=== PATIENT | male | born 1945 | race Caucasian/White ===

== ENCOUNTER 2016-06-10 08:16 | Outpatient (CLI) | END 2016-06-10 08:17 | LOC: AMBL 08:16 | PROVIDERS: ATTEND Emergency Medicine | DX: R53.1 Weakness (principal); S51.812A Laceration without foreign body of left forearm, initial encounter; R09.89 Other specified symptoms and signs involving the circulatory and respiratory systems; W19.XXXA Unspecified fall, initial encounter ==

== ENCOUNTER 2016-06-10 08:26 | Inpatient (IN) ==
[2016-06-10] MEDS ORDERED: SODIUM CHLORIDE 1,000 ML IV STA (08:43)
--- NOTE | 2016-06-10 09:00 | ED.PDOC ---
General ED Provider: Dr. GRIS SADLER JR Chief Complaint: Respiratory Complaint Stated Complaint: found on floor 0300 -weak-cough congestion thinks he has the flu-unsure if struck head --speech -difficult to understand- skin tear to left forearm-neb per ems sat at 84 on 3l--has red rash face-- health failing past month[End]99.2 104 24 94% 120/65[End] Time Seen by Physician: 08:40 Mode of Arrival: Ambulance Information Source: Patient, EMT Exam Limitations: Clinical condition Primary Care Provider: MRALENY WELLER Nursing and Triage Documentation Reviewed and Agree: No Review of Systems - Review Of Systems Constitutional: Reports: Malaise, Weakness Eyes: Reports: No symptoms Ears, Nose, Mouth, Throat: Reports: No symptoms Respiratory: Reports: Cough Cardiac: Reports: Lightheadedness, Syncope GI: Reports: Abdomen distended, Poor appetite : Reports: No symptoms Musculoskeletal: Reports: Other (left arm scraped) Skin: Reports: Lesions Neurological: Reports: Headache (frontal pain - I think I hit it) Endocrine: Reports: No symptoms Hematologic/Lymphatic: Reports: No symptoms All Other Systems: Other Past Medical History - Past Medical History Previously Healthy: No Endocrine: Reports: Hypothyroid, Dyslipidemia Cardiovascular: Reports: CAD, Hypertension Respiratory: Reports: COPD Hematological: Reports: Anemia Gastrointestinal: Reports: GERD Genitourinary: Reports: None Neuro/Psych: Reports: Anxiety, Depression Musculoskeletal: Reports: Arthritis, Back Pain, Joint Pain Cancer: Reports: Other Other Pertinent Past Medical History: sepd - Surgical History General Surgical History: Reports: Cholecystectomy, Unknown - Family History Family History: Reports: Unknown - Social History Smoking Status: Current every day smoker, Light tobacco smoker Hx Substance Use: No Alcohol Screening: None Physical Exam - Physical Exam Appearance: Ill-appearing, Thin Ill-appearing: Moderate Pain Distress: Mild Eyes: WILLIAM, EOMI, Conjunctiva inflammed ENT: Ears normal, Nose normal, Oropharynx normal (dry erythema) Neck: Supple Respiratory: Airway patent, Breath sounds diminished Cardiovascular: RRR, Pulses normal GI/: Soft, Tender (nonfocal discomfort protuberan ) Musculoskeletal: Normal strength, ROM intact, No edema, No calf tenderness Skin: Warm, Dry (morbilliform facial rash) Neurological: Sensation intact, Motor intact, Cranial nerves intact, Oriented Psychiatric: Affect appropriate, Mood appropriate, Depressed Interpretation - Radiology Interpretation Radiology Interpretation By: Radiologist Radiology Results: Positive (RLL pneumonia) Exam Interpreted: CXR - EKG Interpretation Time of EKG #1: 08:55 Rate: Normal Rhythm: Sinus [place]: Right (TECH STATES NO LEAD REVERSAL NO SIG [id number]) Re-Evaluation - Re-Evaluation Time of Re-Evaluation: 10:31 (90% 0N 35 % I AM FEELING PRETTY GOOD) Status: Improved (CHEERFUL STATES HEADACHE GONE NOTE FACIAL RASH RESOLVED EXCEPT LEFT EYE LID) Vital Signs Stable: Yes Critical Care Note - Critical Care Note Total Time (mins): 20 Course - Course Hematology/Chemistry: 06/10/16 09:05 06/10/16 09:05 Orders, Labs, Meds: Lab Review 06/10/16 06/10/16 06/10/16 08:44 09:05 09:35 WBC 9.32 RBC 3.70 L Hgb 11.2 L Hct 35.8 L MCV 96.8 H MCH 30.3 MCHC 31.3 L RDW Coeff of Evan 13.8 Plt Count 184 Immature Gran % (Auto) 1.1 Neut % (Auto) 90.0 Lymph % (Auto) 2.9 L Curry % (Auto) 5.8 Eos % (Auto) 0.0 Baso % (Auto) 0.2 Immature Gran # (Auto) 0.1 Neut # 8.4 H Lymph # 0.3 L Curry # 0.5 Eos # 0.0 Baso # 0.0 D-Dimer 1.64 Puncture Site R rad O2 Saturation 66.0 L ABG pH 7.33 L ABG pCO2 73.0 H ABG pO2 39.0 L* ABG HCO3 38 H ABG Total CO2 40 H ABG Base Excess 12 H Julio Cesar Test + O2 Delivery Device Oxygen Liter Flow FiO2 % 21.0 Sodium 139 Potassium 4.4 Chloride 90 L Carbon Dioxide 35 H Anion Gap 18.4 BUN 18 Creatinine 1.24 H Estimated GFR (MDRD) 57.00 BUN/Creatinine Ratio 14.51 Glucose 145 H Lactic Acid 9.7 Calcium 9.5 Total Bilirubin 0.44 AST 49 H ALT 42 Alkaline Phosphatase 71 Total Creatine Kinase 88 Troponin I 0.0850 B-Natriuretic Peptide 53 Total Protein 7.9 Albumin 3.5 Globulin 4.4 Albumin/Globulin Ratio 0.80 Procalcitonin 0.34 Influenza A (Rapid) Negative Influenza B (Rapid) Negative 06/10/16 11:25 WBC RBC Hgb Hct MCV MCH MCHC RDW Coeff of Evan Plt Count Immature Gran % (Auto) Neut % (Auto) Lymph % (Auto) Curry % (Auto) Eos % (Auto) Baso % (Auto) Immature Gran # (Auto) Neut # Lymph # Curry # Eos # Baso # D-Dimer Puncture Site R rad O2 Saturation 87.0 L ABG pH 7.338 L ABG pCO2 72.1 H ABG pO2 59.0 L* ABG HCO3 38.7 H ABG Total CO2 41 H ABG Base Excess 13 H Julio Cesar Test + O2 Delivery Device V mx Oxygen Liter Flow 6.00 FiO2 % 35.0 Sodium Potassium Chloride Carbon Dioxide Anion Gap BUN Creatinine Estimated GFR (MDRD) BUN/Creatinine Ratio Glucose Lactic Acid Calcium Total Bilirubin AST ALT Alkaline Phosphatase Total Creatine Kinase Troponin I B-Natriuretic Peptide Total Protein Albumin Globulin Albumin/Globulin Ratio Procalcitonin Influenza A (Rapid) Influenza B (Rapid) Orders Category Date Time Status ADMIT PATIENT [facility]PAT[facility] ([facility]) ADMISSION 06/10/16 12: 43 Active ABG DRAW REQUEST Stat CARDIO 06/10/16 08:45 Completed ABG DRAW REQUEST Stat CARDIO 06/10/16 10:30 Completed EKG-(ED ONLY) Stat CARDIO 06/10/16 08:43 Completed EKG-(IP & OP ONLY) DAILY CARDIO 06/11/16 06:00 Ordered EKG-(IP & OP ONLY) DAILY CARDIO 06/12/16 06:00 Ordered EKG-(IP & OP ONLY) DAILY CARDIO 06/13/16 06:00 Ordered NEBULIZER TREATMENT Stat CARDIO 06/10/16 09:30 Completed OXYGEN Routine CARDIO 06/10/16 12:45 Active ACTIVITY .Early Mobilization for VTE Prevention CARE 06/10/16 12:43 Active INTAKE & OUTPUT Q8HR CARE 06/10/16 12:43 Completed TELEMETRY MONITORING TELE CARE 06/10/16 12:44 Active VITAL SIGNS Q4HR CARE 06/10/16 12:43 Active CARDIAC DIET DIETARY 06/10/16 Dinner Ordered ED APPLY O2 .ONCE EMERGENCY 06/10/16 08:43 Active ED EPIC INTERFACE ANALYST APPLIED .ONCE EMERGENCY 06/10/16 08:43 Active ED IV/MEDIPORT/POWERPORT .ONCE EMERGENCY 06/10/16 08:43 Active ABG Stat LAB 06/10/16 08:44 Completed ABG Stat LAB 06/10/16 11:25 Completed B-TYPE NATRIURETIC PEPTIDE Stat LAB 06/10/16 09:05 Completed BLOOD CULTURE Stat LAB 06/10/16 09:05 Received CBC W/ AUTO DIFF DAILY@0600 LAB 06/11/16 06:00 Ordered CBC W/ AUTO DIFF DAILY@0600 LAB 06/12/16 06:00 Ordered CBC W/ AUTO DIFF DAILY@0600 LAB 06/13/16 06:00 Ordered CBC W/ AUTO DIFF DAILY@0600 LAB 06/14/16 06:00 Ordered CBC W/ AUTO DIFF DAILY@0600 LAB 06/15/16 06:00 Ordered CBC W/ AUTO DIFF DAILY@0600 LAB 06/16/16 06:00 Ordered CBC W/ AUTO DIFF DAILY@0600 LAB 06/17/16 06:00 Ordered CBC W/ AUTO DIFF DAILY@0600 LAB 06/18/16 06:00 Ordered CBC W/ AUTO DIFF DAILY@0600 LAB 06/19/16 06:00 Ordered CBC W/ AUTO DIFF DAILY@0600 LAB 06/20/16 06:00 Ordered CBC W/ AUTO DIFF DAILY@0600 LAB 06/21/16 06:00 Ordered CBC W/ AUTO DIFF DAILY@0600 LAB 06/22/16 06:00 Ordered CBC W/ AUTO DIFF DAILY@0600 LAB 06/23/16 06:00 Ordered CBC W/ AUTO DIFF DAILY@0600 LAB 06/24/16 06:00 Ordered CBC W/ AUTO DIFF DAILY@0600 LAB 06/25/16 06:00 Ordered CBC W/ AUTO DIFF DAILY@0600 LAB 06/26/16 06:00 Ordered CBC W/ AUTO DIFF DAILY@0600 LAB 06/27/16 06:00 Ordered CBC W/ AUTO DIFF DAILY@0600 LAB 06/28/16 06:00 Ordered CBC W/ AUTO DIFF DAILY@0600 LAB 06/29/16 06:00 Ordered CBC W/ AUTO DIFF DAILY@0600 LAB 06/30/16 06:00 Ordered CBC W/ AUTO DIFF Stat LAB 06/10/16 09:05 Completed COMPREHENSIVE METABOLIC PANEL DAILY@0600 LAB 06/11/16 06:00 Ordered COMPREHENSIVE METABOLIC PANEL DAILY@0600 LAB 06/12/16 06:00 Ordered COMPREHENSIVE METABOLIC PANEL DAILY@0600 LAB 06/13/16 06:00 Ordered COMPREHENSIVE METABOLIC PANEL DAILY@0600 LAB 06/14/16 06:00 Ordered COMPREHENSIVE METABOLIC PANEL DAILY@0600 LAB 06/15/16 06:00 Ordered COMPREHENSIVE METABOLIC PANEL DAILY@0600 LAB 06/16/16 06:00 Ordered COMPREHENSIVE METABOLIC PANEL DAILY@0600 LAB 06/17/16 06:00 Ordered COMPREHENSIVE METABOLIC PANEL DAILY@0600 LAB 06/18/16 06:00 Ordered COMPREHENSIVE METABOLIC PANEL DAILY@0600 LAB 06/19/16 06:00 Ordered COMPREHENSIVE METABOLIC PANEL DAILY@0600 LAB 06/20/16 06:00 Ordered COMPREHENSIVE METABOLIC PANEL DAILY@0600 LAB 06/21/16 06:00 Ordered COMPREHENSIVE METABOLIC PANEL DAILY@0600 LAB 06/22/16 06:00 Ordered COMPREHENSIVE METABOLIC PANEL DAILY@0600 LAB 06/23/16 06:00 Ordered COMPREHENSIVE METABOLIC PANEL DAILY@0600 LAB 06/24/16 06:00 Ordered COMPREHENSIVE METABOLIC PANEL DAILY@0600 LAB 06/25/16 06:00 Ordered COMPREHENSIVE METABOLIC PANEL DAILY@0600 LAB 06/26/16 06:00 Ordered COMPREHENSIVE METABOLIC PANEL DAILY@0600 LAB 06/27/16 06:00 Ordered COMPREHENSIVE METABOLIC PANEL DAILY@0600 LAB 06/28/16 06:00 Ordered COMPREHENSIVE METABOLIC PANEL DAILY@0600 LAB 06/29/16 06:00 Ordered COMPREHENSIVE METABOLIC PANEL DAILY@0600 LAB 06/30/16 06:00 Ordered COMPREHENSIVE METABOLIC PANEL Stat LAB 06/10/16 09:05 Completed CREATINE KINASE Q8H LAB 06/10/16 19:00 Ordered CREATINE KINASE Q8H LAB 06/11/16 03:00 Ordered CREATINE KINASE Stat LAB 06/10/16 09:05 Completed D-DIMER Stat LAB 06/10/16 09:05 Completed LACTIC ACID Stat LAB 06/10/16 09:05 Completed MOLECULAR GROUP A STREP Stat LAB 06/10/16 09:35 Results PROCALCITONIN Stat LAB 06/10/16 09:05 Completed RAPID FLU A/B Stat LAB 06/10/16 09:35 Completed STREP SCREEN Stat LAB 06/10/16 09:35 Results TROPONIN I Q8H LAB 06/10/16 19:00 Ordered TROPONIN I Q8H LAB 06/11/16 03:00 Ordered TROPONIN I Stat LAB 06/10/16 09:05 Completed 0.9 % Sodium Chloride [Saline Flush] MEDS 06/10/16 08:43 Active 1 syr IVF PRN PRN Acetaminophen [Tylenol] MEDS 06/10/16 12:43 Active 650 mg PO Q4H PRN Ceftriaxone Sodium [Rocephin] MEDS 06/10/16 10:01 Discontinued 1 gm .ROUTE .STK-MED ONE Ceftriaxone Sodium [Rocephin] 1 gm MEDS 06/11/16 09:00 Active 0.9 % Sodium Chloride [Sodium Chloride] 100 ml IV DAILY Ceftriaxone Sodium [Rocephin] 1 gm MEDS 06/10/16 09:31 Discontinued 0.9 % Sodium Chloride [Sodium Chloride] 100 ml IV ONCE Ceftriaxone Sodium [Rocephin] 1 gm MEDS 06/10/16 10:16 Discontinued 0.9 % Sodium Chloride [Sodium Chloride] 50 ml IV ONCE Ipratropium/Albuterol Neb [Duoneb] MEDS 06/10/16 09:30 Discontinued 1 vial NEB ONCE STA Sodium Chloride 0.9% [Sodium Chloride] 1,000 ml MEDS 06/10/16 08:43 Discontinued IV 100 mls/hr Sodium Chloride 0.9% [Sodium Chloride] 1,000 ml MEDS 06/10/16 13:00 Active IV 75 mls/hr RESUSCITATION STATUS Routine OTHERS 06/10/16 12:43 Ordered CHEST, 1V AP ONLY Stat RADS 06/10/16 08:[address] HEAD W/O CONTRAST Stat RADS 06/10/16 08:45 Completed Medications Generic Name Dose Route Start Last Admin Trade Name Freq PRN Reason Stop Dose Admin Acetaminophen 650 mg 06/10/16 12:43 Tylenol PO Q4H PRN Mild Pain Albuterol/Ipratropium 1 vial 06/10/16 18:00 06/10/16 17:50 Duoneb NEB 06/20/16 17:59 1 vial RTQ6H PRIYANKA Administration Aspirin 81 mg 06/10/16 13:30 06/10/16 14:42 Aspirin Ec PO 81 mg DAILYWM PRIYANKA Administration Budesonide/Formoterol Fumarate 2 puff 06/10/16 21:00 Symbicort 160-4.5 Mcg Inhaler IH BID PRIYANKA Ezetimibe 10 mg 06/11/16 09:00 Zetia PO DAILY PRIYNAKA Ergocalciferol 50,000 unit 06/10/16 14:30 06/10/16 14:41 Drisdol PO 50,000 unit We@0900 PRIYANKA Administration Gabapentin 300 mg 06/10/16 21:00 Neurontin PO BID PRIYANKA Hydrochlorothiazide 12.5 mg 06/10/16 14:00 06/10/16 14:42 Hydrochlorothiazide PO 12.5 mg DAILY PRIYANKA Administration Sodium Chloride 1,000 mls @ 75 mls/hr 06/10/16 13:00 06/10/16 19:08 Sodium Chloride IV 75 mls/hr .[id number] PRIYANKA Administration Ceftriaxone Sodium 1 gm/ 100 mls @ 100 mls/hr 06/11/16 09:00 Sodium Chloride IV DAILY PRIYANKA Lamotrigine 25 mg 06/10/16 21:00 Lamictal PO BID PRIYANKA Levothyroxine Sodium 75 mcg 06/10/16 13:30 06/10/16 14:41 Synthroid PO 75 mcg QDAC PRIYANKA Administration Lorazepam 0.5 mg 06/10/16 15:00 06/10/16 15:42 Ativan PO 0.5 mg TID PRIYANKA Administration Non-Formulary Medication 50 mg 06/10/16 15:00 06/10/16 14:41 Primidone [Primidone] PO 50 mg TID PRIYANKA Administration Olanzapine 2.5 mg 06/10/16 21:00 Zyprexa PO BID PRIYANKA Omeprazole 20 mg 06/10/16 13:30 06/10/16 14:41 Prilosec PO 20 mg QDAC PRIYANKA Administration Roflumilast 500 mcg 06/10/16 13:30 06/10/16 14:41 Daliresp PO 500 mcg DAILY PRIYANKA Administration Simvastatin 20 mg 06/10/16 21:00 Zocor PO BEDTIME PRIYANKA Sitagliptin Phosphate 50 mg 06/11/16 09:00 Januvia PO DAILY PRIYANKA Sodium Chloride 1 syr 06/10/16 08:43 06/10/16 09:28 Saline Flush IVF 1 syr PRN PRN Administration To flush IV Sucralfate 1 gm 06/10/16 13:30 06/10/16 17:51 Carafate PO 1 gm ACHS PRIYANKA Administration Tamsulosin HCl 0.4 mg 06/10/16 13:30 06/10/16 14:42 Flomax PO 0.4 mg DAILY PRIYANKA Administration Discontinued Medications Generic Name Dose Route Start Last Admin Trade Name Freq PRN Reason Stop Dose Admin Albuterol/Ipratropium 1 vial 06/10/16 09:30 06/10/16 09:54 Duoneb NEB 06/10/16 09:31 1 vial ONCE STA Administration Dexamethasone Sodium Phosphate 4 mg 06/10/16 14:55 06/10/16 15:01 Decadron 4 Mg/Ml Sdv IVP 06/10/16 14:56 4 mg ONCE STA Administration Sodium Chloride 1,000 mls @ 100 mls/hr 06/10/16 08:43 06/10/16 09:28 Sodium Chloride IV 06/10/16 18:42 100 mls/hr .Q10H STA Administration Ceftriaxone Sodium 1 gm/ 100 mls @ 100 mls/hr 06/10/16 09:31 06/10/16 10:19 Sodium Chloride IV 06/10/16 10:30 Not Given ONCE STA Ceftriaxone Sodium 1 gm/ 50 mls @ 100 mls/hr 06/10/16 10:16 06/10/16 10:18 Sodium Chloride IV 06/10/16 10:45 100 mls/hr ONCE STA Administration Vital Signs: Temp Pulse Resp BP Pulse Ox 06/10/16 08:27 99.2 F 104 H 24 120/65 94 L Departure - Departure Time of Disposition: 12:40 Disposition: ADMITTED INPATIENT Discharge Problem: Pneumonia Qualifiers: Pneumonia type: due to unspecified organism Laterality: right Lung location: lower lobe of lung Qualifier Code: (J18.1) Lobar pneumonia, unspecified organism Condition: Stable Pt referred to PMD for follow-up: Yes Allergies/Adverse Reactions: Allergies codeine Adverse Reaction (Verified 02/29/16 14:05) metoclopramide HCl [From Reglan] Adverse Reaction (Verified 02/29/16 14:05) steroids Adverse Reaction (Uncoded 05/19/15 14:16) Home Medications: Ambulatory Orders Ezetimibe [Zetia] 10 mg PO DAILY 11/18/13 Gabapentin 300 mg PO BID 11/18/13 Simvastatin [Zocor] 20 mg PO BEDTIME 11/18/13 Tamsulosin HCl 0.4 mg PO DAILY 11/18/13 Ipratropium/Albuterol Neb [Duoneb] 1 vial INH BID 01/13/14 Levothyroxine Sodium [Synthroid] 75 mcg PO QDAC 01/13/14 Budesonide/Formoterol Fumarate [Symbicort 160-4.5 Mcg Inhaler] 2 puff IH BID Hydrochlorothiazide 12.5 mg PO DAILY 05/10/15 Sitagliptin Phosphate [Januvia] 50 mg PO DAILY 05/10/15 Sucralfate [Carafate] 1 gm PO DIRECTED 05/10/15 Lamotrigine [Lamictal] 25 mg PO BID #60 11/21/15 Lorazepam 0.5 mg PO TID #90 11/21/15 Olanzapine [Zyprexa] 2.5 mg PO BID #60 11/21/15 Cholecalciferol (Vitamin D3) [Vitamin D] 50,000 unit PO WEEKLY 02/29/16 Omeprazole [Prilosec] 20 mg PO QDAC 02/29/16 Roflumilast [Daliresp] 500 mcg PO DAILY 02/29/16 Primidone 50 mg PO TID #90 05/07/16 Aspirin [Ecotrin] 81 mg PO DAILY 06/10/16
[2016-06-10 09:04] LABS: ABG PH 7.33 (7.35-7.45)
[2016-06-10 09:05] LABS: ABG BASE EXCESS 12 (-2.0-2.0); ABG HCO3 38 (22.0-26.0); ABG TCO2 40 (22.0-28.0)
[2016-06-10 09:23] LABS: BASOPHILS % (AUTO) 0.2 % (0.0-3.0); HEMATOCRIT 35.8 % (42.0-52.0); HEMOGLOBIN 11.2 g/dl (14.0-18.0); IMMATURE GRANULOCYTE % (AUTO) 1.1 % (0.0-5.0); LYMPHOCYTES # (AUTO) 0.3 K/uL (0.60-3.4); LYMPHOCYTES % (AUTO) 2.9 (10.0-50.0); MEAN CORPUSCULAR HEMOGLOBIN 30.3 pg (27.0-31.0); MEAN CORPUSCULAR HGB CONC 31.3 (31.8-35.4); MEAN CORPUSCULAR VOLUME 96.8 fl (80.0-94.0); MONOCYTES # (AUTO) 0.5 K/uL (0.4-2.0); MONOCYTES % (AUTO) 5.8 (0-10); NEUTROPHILS # (AUTO) 8.4 K/ul (2.0-6.9); PLATELET COUNT 184 10^3/uL (140-440); WHITE BLOOD COUNT 9.32 K/ul (4.2-10.2)
[2016-06-10] MEDS ORDERED: DUONEB NEB STA (09:30)
[2016-06-10 09:44] LABS: ALBUMIN 3.5 g/dL (3.4-5.0); ALBUMIN/GLOBULIN RATIO 0.8; ANION GAP 18.4; BILIRUBIN,TOTAL 0.44 mg/dL (0.00-1.20); BUN/CREATININE RATIO 14.51; CALCIUM 9.5 mg/dL (8.2-10.2); CREATININE 1.24 mg/dL (0.60-1.10); POTASSIUM 4.4 mmol/L (3.5-5.1); TOTAL PROTEIN 7.9 g/dL (5.8-8.1); TROPONIN I 0.085 ng/ml (0.0000-0.4000)
[2016-06-10] MEDS ORDERED: ROCEPHIN ONE (10:01)
[2016-06-10] MEDS: ROCEPHIN 1 GM in SODIUM CHLORIDE 100 ML IV STA ×2 (10:14→10:19)
[2016-06-10 10:15] LABS: FLU INTERNAL QC INTERNAL QC VALID; RAPID FLU A NEGATIVE (NEGATIVE); RAPID FLU B NEGATIVE (NEGATIVE)
[2016-06-10] MEDS ORDERED: ROCEPHIN 1 GM in SODIUM CHLORIDE 50 ML IV STA (10:16)
--- NOTE | 2016-06-10 10:43 | CT ---
EXAM: CT BRAIN HISTORY: Fall, head injury with memory deficit TECHNIQUE: CT brain without intravenous contrast. 5-mm axial sections with Reformations. COMPARISON: 01/13/2014 FINDINGS: Brain is unremarkable without distinct evidence of hemorrhage or large vessel distribution recent ischemic infarction. There is no suggestion of acute hydrocephalus or subdural fluid collection. N o mass or mass effect. Cranium is within normal limits. Mastoid air cells are aerated. The visualized paranasal sinuses r eveal mild patchy opacification within the ethmoid cells. IMPRESSION: 1. No acute intracranial process or injury identified. No skull fracture. 2. Mild chronic sinusitis.
--- NOTE | 2016-06-10 10:45 | DI ---
Examination: Single radiographic image of the chest. Comparison: 02/29/2016. Reason for study: Cough, shortness of air. FINDINGS: Fibrotic changes are seen throughout the lung parenchyma. There is an increasing area of interstitial opacification in the right lower lobe. There is persistent blunting of the costophren ic angles. Old granulomas disease is seen within the chest. No pneumothorax. Impression: Likely infiltrative (pneumonia)/inflammatory changes in the right lower lobe in the setting of emphy sema.
[2016-06-10 11:32] LABS: ABG BASE EXCESS 13 (-2.0-2.0); ABG HCO3 38.7 (22.0-26.0); ABG PCO2 72.1 mmHg (35-45); ABG PH 7.338 (7.35-7.45); ABG TCO2 41 (22.0-28.0)
[2016-06-10] MEDS ORDERED: TYLENOL PO PRN (12:43)
[2016-06-10] MEDS ORDERED: SOLU-CORTEF 250 MG IVP SCH (13:00)
[2016-06-10] MEDS ORDERED: SOLU-CORTEF 100 MG IVP SCH (13:00)
[2016-06-10] MEDS ORDERED: NON-FORMULARY MEDICATION (Hydrochlorothiazide [Hydrochlorothiazide] 12.5 MG) PO SCH ×22 (13:30)
[2016-06-10 13:34] VITALS: BMI 24.4
[2016-06-10] MEDS: SYNTHROID PO SCH (14:41)
[2016-06-10] MEDS: DRISDOL PO SCH (14:41)
[2016-06-10] MEDS: PRILOSEC PO SCH (14:41)
[2016-06-10] MEDS: DALIRESP PO SCH (14:41)
[2016-06-10] MEDS: PRIMIDONE 50 MG PO SCH ×2 (14:41→21:05)
[2016-06-10] MEDS: FLOMAX PO SCH (14:42)
[2016-06-10] MEDS: ASPIRIN EC PO SCH (14:42)
[2016-06-10] MEDS: CARAFATE PO SCH ×3 (14:42→21:04)
[2016-06-10] MEDS: HYDROCHLOROTHIAZIDE PO SCH (14:42)
[2016-06-10] MEDS ORDERED: DECADRON 4 MG/ML SDV IVP STA (14:55)
[2016-06-10] MEDS: ATIVAN PO SCH ×2 (15:42→21:04)
[2016-06-10 17:32] LABS: ABG BASE EXCESS 12 (-2.0-2.0); ABG HCO3 36.9 (22.0-26.0); ABG PCO2 59.1 mmHg (35-45); ABG PH 7.403 (7.35-7.45); ABG TCO2 39 (22.0-28.0)
[2016-06-10] MEDS: DUONEB NEB SCH ×2 (17:50→23:25)
[2016-06-10] MEDS: SODIUM CHLORIDE 1,000 ML IV SCH (19:08)
[2016-06-10 20:10] LABS: TROPONIN I 0.202 ng/ml (0.0000-0.4000)
[2016-06-10] MEDS: SYMBICORT 160-4.5 MCG INHALER IH SCH ×2 (20:40→21:04)
[2016-06-10 20:48] LABS: CREATINE KINASE MB 6.9 ng/ml (0.0-3.6)
[2016-06-10] MEDS ORDERED: NON-FORMULARY MEDICATION (Simvastatin [Zocor] 20 MG) PO SCH ×22 (21:00)
[2016-06-10] MEDS ORDERED: NEURONTIN PO SCH (21:00)
[2016-06-10] MEDS ORDERED: NON-FORMULARY MEDICATION (Gabapentin [Gabapentin] 300 MG) PO SCH (21:00)
[2016-06-10] MEDS: LAMICTAL PO SCH (21:03)
[2016-06-10] MEDS: ZYPREXA PO SCH (21:03)
[2016-06-10] MEDS: ZOCOR PO SCH (21:04)
[2016-06-10] MEDS: NEURONTIN PO SCH (21:04)
[2016-06-11 02:58] LABS: BASOPHILS % (AUTO) 0.2 % (0.0-3.0); HEMATOCRIT 30.1 % (42.0-52.0); HEMOGLOBIN 9.4 g/dl (14.0-18.0); IMMATURE GRANULOCYTE % (AUTO) 1.3 % (0.0-5.0); LYMPHOCYTES # (AUTO) 0.5 K/uL (0.60-3.4); LYMPHOCYTES % (AUTO) 7.6 (10.0-50.0); MEAN CORPUSCULAR HEMOGLOBIN 29.9 pg (27.0-31.0); MEAN CORPUSCULAR HGB CONC 31.2 (31.8-35.4); MEAN CORPUSCULAR VOLUME 95.9 fl (80.0-94.0); MONOCYTES # (AUTO) 0.5 K/uL (0.4-2.0); MONOCYTES % (AUTO) 8.8 (0-10); NEUTROPHILS # (AUTO) 5.1 K/ul (2.0-6.9); NEUTROPHILS % (AUTO) 82.1; PLATELET COUNT 150 10^3/uL (140-440); RED BLOOD COUNT 3.14 10^6/ul (4.70-6.10); WHITE BLOOD COUNT 6.17 K/ul (4.2-10.2)
[2016-06-11 03:17] LABS: ALBUMIN 2.7 g/dL (3.4-5.0); ALBUMIN/GLOBULIN RATIO 0.73; ANION GAP 10.7; BILIRUBIN,TOTAL 0.15 mg/dL (0.00-1.20); BUN/CREATININE RATIO 16.25; CALCIUM 8.7 mg/dL (8.2-10.2); CREATININE 0.8 mg/dL (0.60-1.10); POTASSIUM 3.7 mmol/L (3.5-5.1); TOTAL PROTEIN 6.4 g/dL (5.8-8.1)
[2016-06-11 03:49] LABS: TROPONIN I 0.109 ng/ml (0.0000-0.4000)
[2016-06-11 04:07] LABS: CREATINE KINASE MB 4.9 ng/ml (0.0-3.6)
[2016-06-11] MEDS: DUONEB NEB SCH ×4 (05:00→23:12)
[2016-06-11] MEDS: CARAFATE PO SCH ×4 (05:59→20:39)
[2016-06-11] MEDS: PRILOSEC PO SCH (05:59)
[2016-06-11] MEDS: SYNTHROID PO SCH (05:59)
[2016-06-11] MEDS ORDERED: DECADRON 4 MG/ML SDV IM STA (08:00)
[2016-06-11] MEDS: ZETIA PO SCH (08:29)
[2016-06-11] MEDS: ZYPREXA PO SCH ×2 (08:29→20:39)
[2016-06-11] MEDS: JANUVIA PO SCH (08:30)
[2016-06-11] MEDS: FLOMAX PO SCH (08:30)
[2016-06-11] MEDS: LAMICTAL PO SCH ×2 (08:30→20:38)
[2016-06-11] MEDS: NEURONTIN PO SCH ×2 (08:30→20:39)
[2016-06-11] MEDS: ATIVAN PO SCH ×3 (08:31→20:39)
[2016-06-11] MEDS: DALIRESP PO SCH (08:31)
[2016-06-11] MEDS: ROCEPHIN 1 GM in SODIUM CHLORIDE 100 ML IV SCH (08:31)
[2016-06-11] MEDS: ASPIRIN EC PO SCH (08:31)
[2016-06-11] MEDS: HYDROCHLOROTHIAZIDE PO SCH (08:32)
[2016-06-11] MEDS: SYMBICORT 160-4.5 MCG INHALER IH SCH (08:32)
[2016-06-11] MEDS: PRIMIDONE 50 MG PO SCH ×3 (08:34→20:39)
[2016-06-11 09:32] LABS: ABG BASE EXCESS 9 (-2.0-2.0); ABG HCO3 33.8 (22.0-26.0); ABG PCO2 55.1 mmHg (35-45); ABG PH 7.395 (7.35-7.45); ABG TCO2 35 (22.0-28.0)
[2016-06-11] MEDS: SODIUM CHLORIDE 1,000 ML IV SCH (10:49)
[2016-06-11] MEDS: ZITHROMAX 500 MG in SODIUM CHLORIDE 250 ML IV SCH (10:59)
--- NOTE | 2016-06-11 11:21 | PCM.PROG ---
Attending Provider: ATTENDING PROVIDER: Dr. MARLENY WELLER DATE OF SERVICE: 06/11/16 SUBJECTIVE: This 71 year old WHITE/ M was hospitalized 06/10/16. The patient is hospitalized with pneumonia and respiratory failure. The patient is not allergic to steroids. The statement made by the family members is that the patient is allergic to steroids. REVIEW OF SYSTEMS: CONSTITUTIONAL: The patient is feeling better, is stable. No night sweats. No fatigue, malaise, lethargy. No fever or chills. HEENT: Eyes: No visual changes. No eye pain. No eye discharge. ENT: No runny nose. No epistaxis. No sinus pain. No odynophagia. No congestion. RESPIRATORY: No cough, no congestion. No hemoptysis. CARDIOVASCULAR: No angina symptoms. No CHF symptoms. No atypical chest pain for CAD. No palpitations. Shortness of breath on exertion, as usual. GASTROINTESTINAL: No abdominal pain. No nausea or vomiting. No diarrhea or constipation. No hematemesis. No hematochezia. GENITOURINARY: No urgency. No frequency. No dysuria. No hematuria. No obstructive symptoms. No discharge. No pain. No significant abnormal bleeding. MUSCULOSKELETAL: No musculoskeletal pain; no joint swelling. NEUROLOGICAL: Awake, alert, oriented to time, place and person. No headache. No neck pain. No syncope. No seizures. No dizziness. PSYCHIATRIC: Not anxious. No depression. No suicidal thoughts. No homicidal thoughts. SKIN: No rash. No lesions. No wounds. ENDOCRINE: No unexplained weight loss. No weight gain. HEMATOLOGIC/LYMPHATIC: No anemia. No purpura. No petechiae. No prolonged or excessive bleeding. No palpable lymph nodes. PHYSICAL EXAMINATION: GENERAL: The patient is awake, alert and oriented, pleasant male lying in bed in no distress. VITAL SIGNS: Temperature 97.7 F, Pulse 88, Respiratory Rate 22, BP 139/71, Pulse Ox 80% HEENT: Head normocephalic, atraumatic. Eyes: Extraocular muscles are intact. Pupils are equal, round and reactive to light and accommodation. Ears: No lesions. Nose appeared normal. Throat: No exudate or erythema. NECK: Supple. No JVD, no carotid bruit. No lymphadenopathy or thyromegaly. LUNGS: Decreased breath sounds bilaterally. Clear to auscultation. Percussion note normal. Chest symmetrical. HEART: S1, S2, no S3. No murmurs. No cyanosis or clubbing. No ascites. Pulses: Dorsalis pedis and posterior tibial pulses feeble bilaterally. ABDOMEN: Soft. Non-tender. Bowel sounds active. No CVA tenderness. No mass felt. EXTREMITIES: No edema. Full range of motion of all extremities, equal. NEUROLOGIC: No focal deficit. Cranial nerves II through XII are grossly intact. No headache, no double vision or headache. SKIN: Not dry. Intact. Turgor-normal. LYMPHATIC: No palpable lymph nodes/no lymphedema. MUSCULOSKELETAL: Normal joints with no swelling. Muscle tone is normal. LAB REVIEW: 06/11/16 02:50 06/11/16 02:50 06/11/16 02:50: WBC 6.17, RBC 3.14 L, Hgb 9.4 L, Hct 30.1 L, MCV 95.9 H, MCH 29.9, MCHC 31.2 L, RDW Coeff of Evan 13.7, Plt Count 150, Immature Gran % (Auto) 1.3, Neut % (Auto) 82.1, Lymph % (Auto) 7.6 L, [place] % (Auto) 8.8, Eos % (Auto) 0.0, Baso % (Auto) 0.2, Immature Gran # (Auto) 0.1, Neut # 5.1, Lymph # 0.5 L, [place] # 0.5, Eos # 0.0, Baso # 0.0, Sodium 138, Potassium 3.7, Chloride 96 L, Carbon Dioxide 35 H, Anion Gap 10.7, BUN 13, Creatinine 0.80, Estimated GFR ( MDRD) 95.00, BUN/Creatinine Ratio 16.25, Glucose 205 H D, Calcium 8.7, Total Bilirubin 0.15, AST 26, ALT 28, Alkaline Phosphatase 57, Total Creatine Kinase 116, CK-MB (CK-2) 4.9 H, CK-MB (CK-2) % 4.54315, Troponin I 0.1090, Total Protein 6.4, Albumin 2.7 L, Globulin 3.7, Albumin/Globulin Ratio 0.73 06/10/16 19:13: Total Creatine Kinase 139, CK-MB (CK-2) 6.9 H*, CK-MB (CK-2) % 4.41654, Troponin I 0.2020 06/10/16 17:18: Puncture Site Rr, O2 Saturation 92.0 L, ABG pH 7.403, ABG pCO2 59.1 H, ABG pO2 67.0 L, ABG HCO3 36.9 H, ABG Total CO2 39 H, ABG Base Excess 12 H, Julio Cesar Test +, O2 Delivery Device Vm, Oxygen Liter Flow 6.00, FiO2 % 35.0 ASSESSMENT: 1. Respiratory failure, chronic. 2. Acute bronchitis/pneumonitis. 3. History of smoking. 4. Diabetes mellitus. 5. Dyslipidemia. 6. Hypertension. PLAN: 1. Counseling for smoking done - patient says he quit one week ago. 2. Nebulizer treatments. 3. IV antibiotics. 4. Continue Rocephin. 5. Add Zithromax 500 mg daily for 3 days. 6. ABGs on 50% Venti mask. 7. Decadron 1 cc. Plan and coordination of the patient's care discussed in the presence of Gear Repair Supervisor and nurse. CONDITION: Stable SCRIBED BY: SANDY CASANOVA Cna scribed while in presence of service performed by Dr. MARLENY WELLER on 06/11/16 ([id number])
--- NOTE | 2016-06-11 13:34 | HP ---
DATE OF SERVICE: 06/10/16 REASON FOR HOSPITALIZATION: Pneumonia and acute respiratory failure. HISTORY OF PRESENT ILLNESS: The patient is a 71 year old white male hospitalized through the emergency room with shortness of breath. The patient's arterial blood gasses showed severe hypoxemia with pO2 of 39, pCO2 70 with pH 7.33 with less than 70% oxygen saturation. The patient has this type of horrible blood gasses practically off and one. He is non-compliant and heavy smoker. According to him he has quit smoking nearly two to three weeks ago which the sister who lives with him says no that he has still been smoking. The patient says that he has been sick for past 48 hours, cough is yellowish and he has been feeling light headed. REVIEW OF SYSTEMS: CONSTITUTIONAL: No night sweats. Weakness and fatigue. No fever or chills. HEENT: Eyes: No visual changes. No eye pain. No eye discharge. ENT: No runny nose. No epistaxis. No sinus pain. No sore throat. No odynophagia. No ear pain. No congestion. RESPIRATORY: Cough and congestion with yellowish sputum production. No hemoptysis. CARDIOVASCULAR: No angina symptoms. No CHF symptoms. No atypical chest pain for CAD. No palpitations. Shortness of breath on minimal exertion. Pleuritic type of chest pain. No PND. No orthopnea. GASTROINTESTINAL: No abdominal pain. No nausea or vomiting. No diarrhea or constipation. No hematemesis. No hematochezia. Poor appetite. Poor oral intake. GENITOURINARY: No urgency. No frequency. No dysuria. No hematuria. No obstructive symptoms. No discharge. No pain. No significant abnormal bleeding. MUSCULOSKELETAL: No musculoskeletal pain. No joint swelling. No arthritis. NEUROLOGICAL: No headache. No neck pain. No syncope. No seizures. No dizziness. PSYCHIATRIC: Not anxious. No depression. No suicidal thoughts. No homicidal thoughts. SKIN: No rash. No lesions. No wounds. ENDOCRINE: No unexplained weight loss. No weight gain. HEMATOLOGIC/LYMPHATIC: No anemia. No purpura. No petechiae. No prolonged or excessive bleeding. No palpable lymph nodes. PERSONAL/FAMILY/SOCIAL HISTORY: The patient is single, lives with the sister. Smokes heavy. No alcohol abuse. Tries to do all activity of daily living except for cooking. Requires help in bathing. PAST MEDICAL/SURGICAL PROBLEMS: History of coronary artery disease Dyslipidemia BPH Severe chronic lung disease Smoking Hypothyroidism Diabetes mellitus Hypertension Depression with psychosis MEDICATIONS: Zetia 10mg PO daily Gabapentin 300mg PO twice Simvastatin 20mg PO at bedtime Tamsulosin 0.4mg daily DUO NEB one NEB treatment twice a day Levothyroxine 75mcg PO daily Symbicort 160-4.5 two puffs twice a day Hydrochlorothiazide 12.5 PO daily Januvia 50mg PO daily Carafate 1 gram four times a day PRN Lamictal 25mg PO twice a day Lorazepam 0.5mg PO three times a day PRN Zyprexa 2.5mg twice a day Vitamin D3 50,000 units weekly, started on 02/29/16 every week for 8 weeks. Prilosec 20mg PO QAM Daliresp 500mcg PO daily Primidone 50mg PO three times day Aspirin 81mg PO daily ALLERGIES: Codeine Metoclopramide Steroids, The patient was on steroids for long time with his severe lung problem in the past then he became demented and had aggressive behavior that was blamed on steroids but that was one of the reasons maybe. I don't think that it is any true allergy. PHYSICAL EXAMINATION: GENERAL: The patient is oriented to time, place and person. VITAL SIGNS: Temperature 99.2, pulse 100, respiratory 24, blood pressure 120/ 65 and pulse ox 94% with 40% Venturi-mas only 68% on room air. HEENT: Head normocephalic, atraumatic. Eyes: Extraocular muscles are intact. Pupils are equal, round and reactive to light and accommodation. Ears: No lesions. Nose appeared normal. Throat: No exudate or erythema. NECK: Supple. No JVP, no carotid bruit. No lymphadenopathy or thyromegaly. LUNGS: Decreased breath sounds bilaterally with mild wheeze. shallow breathing. Clear to auscultation. Percussion note normal. Chest symmetrical. HEART: S1, S2, no S3. No murmurs. No cyanosis, Mild clubbing. No ascites. Pulses: Dorsalis pedis and posterior tibial pulses +1 bilaterally. ABDOMEN: Soft. Nontender. Bowel sounds active. No CVA tenderness. No mass felt. EXTREMITIES: Trace edema. Full range of motion of all extremities, equal. NEUROLOGIC: No focal deficit. Cranial nerves II through XII are grossly intact. No headache, no double vision or headache. SKIN: Not dry. Intact. Turgor - normal. LYMPHATIC: No palpable lymph nodes/no lymphedema. MUSCULOSKELETAL: Normal joints with no swelling. Muscle tone is normal. LABS: ABG done pH 7.33, pO2 39, pCO2 73 with saturation of 66% on room air. Repeat FiO2 35%, pO2 59, pCO2 72.1, pH 7.33 with saturation 87% this was done after patient was put on Venturi-mask. CT scan showed sinusitis no acute changes. Chest x-ray showed infiltrated right lower lobe and the setting of emphysema. Creatinine 1.2, BUN 18, AST 49 mildly elevated otherwise liver enzymes are negative. Influenza A and B are negative. Procalcitonin normal. BNP 53. Hgb 11.2 , hct 35.8, WBC 9,300 normal differential. ASSESSMENT: 1. Acute respiratory failure 2. Severe chronic lung disease 3. Smoking 4. Coronary artery disease 5. Dyslipidemia 6. Hypertension 7. Hypothyroidism 8. Depression with psychosis. 9. Diabetes Mellitus type 2 10. Chronic Kidney Disease stage 2 The patient is DNR. He doesn't want any form of CPR or resuscitation. PLAN: 1. 1cc of Decadron today and 1cc Decadron every morning 2. 1,000 cc D5 half normal saline 100 cc per hour 3. Monitor CBC and CMP daily 4. T4 and TSH today 5. Monitor ABG. 6. Telemetry 7. Serial EKG's and cardiac markers 8. Counseling of smoking done 9. The patient was explained the side effect of all the medication that are being used now. The patient to be continue on all the rest of the home medications as before. CONDITION: Stable with no distress at present time. When I saw the patient in his room his oxygen saturation is 94% with 40% Venturi-mask. We are going to repeat the ABG and go from there. SHORT TERM PROGNOSIS: Poor. TIME SPENT: More than 70 minutes. MTDD
[2016-06-11] MEDS: ZOCOR PO SCH (20:38)
[2016-06-12] MEDS: DUONEB NEB SCH ×5 (05:03→22:47)
[2016-06-12] MEDS: PRILOSEC PO SCH (05:37)
[2016-06-12] MEDS: CARAFATE PO SCH ×4 (05:37→21:10)
[2016-06-12] MEDS: SYNTHROID PO SCH (05:37)
[2016-06-12 06:13] LABS: BASOPHILS % (AUTO) 0.3 % (0.0-3.0); EOSINOPHILS % (AUTO) 0.1 % (0.0-7.0); HEMATOCRIT 33.8 % (42.0-52.0); HEMOGLOBIN 10.6 g/dl (14.0-18.0); IMMATURE GRANULOCYTE % (AUTO) 0.5 % (0.0-5.0); LYMPHOCYTES # (AUTO) 0.9 K/uL (0.60-3.4); LYMPHOCYTES % (AUTO) 11.5 (10.0-50.0); MEAN CORPUSCULAR HEMOGLOBIN 30.2 pg (27.0-31.0); MEAN CORPUSCULAR HGB CONC 31.4 (31.8-35.4); MEAN CORPUSCULAR VOLUME 96.3 fl (80.0-94.0); MONOCYTES # (AUTO) 0.8 K/uL (0.4-2.0); NEUTROPHILS # (AUTO) 5.6 K/ul (2.0-6.9); NEUTROPHILS % (AUTO) 76.6; PLATELET COUNT 202 10^3/uL (140-440); RED BLOOD COUNT 3.51 10^6/ul (4.70-6.10); WHITE BLOOD COUNT 7.36 K/ul (4.2-10.2)
[2016-06-12 06:36] LABS: ALBUMIN 3.1 g/dL (3.4-5.0); ALBUMIN/GLOBULIN RATIO 0.74; ANION GAP 14.7; BILIRUBIN,TOTAL 0.19 mg/dL (0.00-1.20); BUN/CREATININE RATIO 10.12; CALCIUM 9.3 mg/dL (8.2-10.2); CREATININE 0.79 mg/dL (0.60-1.10); POTASSIUM 3.7 mmol/L (3.5-5.1); TOTAL PROTEIN 7.3 g/dL (5.8-8.1)
[2016-06-12] MEDS ORDERED: DECADRON 4 MG/ML SDV IM STA (08:00)
[2016-06-12] MEDS: ROCEPHIN 1 GM in SODIUM CHLORIDE 100 ML IV SCH (09:01)
[2016-06-12 09:04] LABS: ABG PCO2 76.6 mmHg (35-45); ABG PH 7.296 (7.35-7.45)
[2016-06-12 09:05] LABS: ABG BASE EXCESS 11 (-2.0-2.0); ABG HCO3 37.3 (22.0-26.0); ABG TCO2 40 (22.0-28.0)
[2016-06-12] MEDS: ZYPREXA PO SCH ×2 (09:11→21:10)
[2016-06-12] MEDS: LAMICTAL PO SCH ×2 (09:11→21:10)
[2016-06-12] MEDS: NEURONTIN PO SCH ×2 (09:12→21:09)
[2016-06-12] MEDS: ASPIRIN EC PO SCH (09:12)
[2016-06-12] MEDS: ATIVAN PO SCH ×3 (09:13→21:08)
[2016-06-12] MEDS: FLOMAX PO SCH (09:13)
[2016-06-12] MEDS: HYDROCHLOROTHIAZIDE PO SCH (09:13)
[2016-06-12] MEDS: ZETIA PO SCH (09:14)
[2016-06-12] MEDS: JANUVIA PO SCH (09:15)
[2016-06-12] MEDS: SYMBICORT 160-4.5 MCG INHALER IH SCH ×2 (09:16→21:08)
[2016-06-12] MEDS: DALIRESP PO SCH (09:16)
[2016-06-12] MEDS: PRIMIDONE 50 MG PO SCH ×3 (09:17→21:08)
--- NOTE | 2016-06-12 09:48 | PCM.PROG ---
Attending Provider: ATTENDING PROVIDER: Dr. MARLENY WELLER DATE OF SERVICE: 06/12/16 SUBJECTIVE: This 71 year old WHITE/ M was hospitalized 06/10/16. The patient is hospitalized with pneumonia and respiratory failure. The patient has chronic respiratory failure. Blood gases yesterday looked better with normal pH 7.4, p02 of more than 60, pc02 7.3, saturation more than 90% this morning. He is more short of breath, not wearing oxygen, noncompliant and wants to get out of here, probably is wanting to smoke. The patient is febrile with temperature of 100, REVIEW OF SYSTEMS: CONSTITUTIONAL: Fever. No chills. No night sweats. No fatigue, malaise, lethargy. HEENT: Eyes: No visual changes. No eye pain. No eye discharge. ENT: No runny nose. No epistaxis. No sinus pain. No odynophagia. No congestion. RESPIRATORY: No cough, no congestion. No hemoptysis. CARDIOVASCULAR: No angina symptoms. No CHF symptoms. No atypical chest pain for CAD. No palpitations. Shortness of breath at rest. GASTROINTESTINAL: No abdominal pain. No nausea or vomiting. No diarrhea or constipation. No hematemesis. No hematochezia. GENITOURINARY: No urgency. No frequency. No dysuria. No hematuria. No obstructive symptoms. No discharge. No pain. No significant abnormal bleeding. MUSCULOSKELETAL: No musculoskeletal pain; no joint swelling. NEUROLOGICAL: Awake, alert, oriented to time, place and person. No headache. No neck pain. No syncope. No seizures. No dizziness. PSYCHIATRIC: Not anxious. No depression. No suicidal thoughts. No homicidal thoughts. SKIN: No rash. No lesions. No wounds. ENDOCRINE: No unexplained weight loss. No weight gain. HEMATOLOGIC/LYMPHATIC: No anemia. No purpura. No petechiae. No prolonged or excessive bleeding. No palpable lymph nodes. PHYSICAL EXAMINATION: GENERAL: The patient is awake, alert and oriented in mild distress. VITAL SIGNS: Temperature 100.0 F, Pulse 120, Respiratory Rate 20, BP 183/93, Pulse Ox 90% HEENT: Head normocephalic, atraumatic. Eyes: Extraocular muscles are intact. Pupils are equal, round and reactive to light and accommodation. Ears: No lesions. Nose appeared normal. Throat: No exudate or erythema. NECK: Supple. No JVD, no carotid bruit. No lymphadenopathy or thyromegaly. LUNGS: Decreased breath sounds with mild wheeze. Percussion note normal. Chest symmetrical. HEART: S1, S2, no S3. No murmurs. No cyanosis or clubbing. No ascites. Pulses: Dorsalis pedis and posterior tibial pulses +1 to +2 both sides. ABDOMEN: Soft. Non-tender. Bowel sounds active. No CVA tenderness. No mass felt. EXTREMITIES: No edema. Full range of motion of all extremities, equal. NEUROLOGIC: No focal deficit. Cranial nerves II through XII are grossly intact. No headache, no double vision or headache. SKIN: Not dry. Intact. Turgor-normal. LYMPHATIC: No palpable lymph nodes/no lymphedema. MUSCULOSKELETAL: Normal joints with no swelling. Muscle tone is normal. LAB REVIEW: 06/12/16 05:45 06/12/16 05:45 06/12/16 05:45: WBC 7.36, RBC 3.51 L, Hgb 10.6 L, Hct 33.8 L, MCV 96.3 H, MCH 30.2, MCHC 31.4 L, RDW Coeff of Evan 14.1, Plt Count 202 D, Immature Gran % ( Auto) 0.5, Neut % (Auto) 76.6, Lymph % (Auto) 11.5, [place] % (Auto) 11.0 H, Eos % (Auto) 0.1, Baso % (Auto) 0.3, Immature Gran # (Auto) 0.0, Neut # 5.6, Lymph # 0.9, [place] # 0.8, Eos # 0.0, Baso # 0.0, Sodium 143, Potassium 3.7, Chloride 97 L , Carbon Dioxide 35 H, Anion Gap 14.7, BUN 8, Creatinine 0.79, Estimated GFR ( MDRD) 96.00, BUN/Creatinine Ratio 10.12, Glucose 124 H, Calcium 9.3, Total Bilirubin 0.19, AST 28, ALT 26, Alkaline Phosphatase 63, Total Protein 7.3, Albumin 3.1 L, Globulin 4.2, Albumin/Globulin Ratio 0.74 06/11/16 09:30: Puncture Site R rad, O2 Saturation 96.0, ABG pH 7.395, ABG pCO2 55.1 H, ABG pO2 85.0, ABG HCO3 33.8 H, ABG Total CO2 35 H, ABG Base Excess 9 H, Julio Cesar Test +, O2 Delivery Device V mx, FiO2 % 50.0 ASSESSMENT: 1. Respiratory failure, chronic 2. Acute bronchitis/pneumonitis 3. History of smoking 4. Diabetes mellitus 5. Dyslipidemia 6. Hypertension PLAN: 1. Continue IV antibiotics Rocephin and Zithrmoax p.o. 2. Duonebs 3. Continue Decadron 1 cc Plan and coordination of the patient's care discussed in the presence of Risk Control Field Representative and nurse. CONDITION: Stable. Prognosis is guarded. SCRIBED BY: SANDY CASANOVA Claims Analyst scribed while in presence of service performed by Dr. MARLENY WELLER on 06/12/16 ([id number])
[2016-06-12] MEDS: ZITHROMAX 500 MG in SODIUM CHLORIDE 250 ML IV SCH (10:15)
[2016-06-12 10:30] LABS: ABG PH 7.304 (7.35-7.45)
[2016-06-12 10:31] LABS: ABG BASE EXCESS 12 (-2.0-2.0); ABG HCO3 38.5 (22.0-26.0); ABG PCO2 77.5 mmHg (35-45); ABG TCO2 41 (22.0-28.0)
[2016-06-12] MEDS ORDERED: LASIX ONE (20:25)
[2016-06-12] MEDS: ZOCOR PO SCH (21:09)
[2016-06-13] MEDS: DUONEB NEB SCH ×4 (04:48→23:08)
[2016-06-13] MEDS: SYNTHROID PO SCH ×2 (05:27→05:31)
[2016-06-13] MEDS: PRILOSEC PO SCH ×2 (05:28→05:31)
[2016-06-13] MEDS: CARAFATE PO SCH ×5 (05:28→20:42)
[2016-06-13 08:08] LABS: BASOPHILS % (AUTO) 0.2 % (0.0-3.0); EOSINOPHILS % (AUTO) 0.1 % (0.0-7.0); HEMATOCRIT 33.2 % (42.0-52.0); HEMOGLOBIN 10.2 g/dl (14.0-18.0); IMMATURE GRANULOCYTE % (AUTO) 0.5 % (0.0-5.0); LYMPHOCYTES # (AUTO) 0.5 K/uL (0.60-3.4); LYMPHOCYTES % (AUTO) 5.8 (10.0-50.0); MEAN CORPUSCULAR HEMOGLOBIN 30.1 pg (27.0-31.0); MEAN CORPUSCULAR HGB CONC 30.7 (31.8-35.4); MEAN CORPUSCULAR VOLUME 97.9 fl (80.0-94.0); MONOCYTES # (AUTO) 0.9 K/uL (0.4-2.0); MONOCYTES % (AUTO) 10.2 (0-10); NEUTROPHILS % (AUTO) 83.2; PLATELET COUNT 179 10^3/uL (140-440); RED BLOOD COUNT 3.39 10^6/ul (4.70-6.10); WHITE BLOOD COUNT 8.41 K/ul (4.2-10.2)
[2016-06-13] MEDS: PRIMIDONE 50 MG PO SCH ×3 (08:15→20:40)
[2016-06-13] MEDS: SYMBICORT 160-4.5 MCG INHALER IH SCH ×2 (08:15→20:39)
[2016-06-13] MEDS: ZETIA PO SCH (08:16)
[2016-06-13] MEDS: JANUVIA PO SCH (08:16)
[2016-06-13] MEDS: ZYPREXA PO SCH ×2 (08:16→20:40)
[2016-06-13] MEDS: DALIRESP PO SCH (08:16)
[2016-06-13] MEDS: ASPIRIN EC PO SCH (08:16)
[2016-06-13] MEDS: LAMICTAL PO SCH ×2 (08:16→20:40)
[2016-06-13] MEDS: HYDROCHLOROTHIAZIDE PO SCH (08:16)
[2016-06-13] MEDS: NEURONTIN PO SCH ×2 (08:16→20:40)
[2016-06-13] MEDS: FLOMAX PO SCH (08:17)
[2016-06-13 08:32] LABS: ALBUMIN 2.9 g/dL (3.4-5.0); ALBUMIN/GLOBULIN RATIO 0.73; ANION GAP 13.5; BILIRUBIN,TOTAL 0.23 mg/dL (0.00-1.20); BUN/CREATININE RATIO 16.25; CREATININE 0.8 mg/dL (0.60-1.10); POTASSIUM 3.5 mmol/L (3.5-5.1); TOTAL PROTEIN 6.9 g/dL (5.8-8.1)
[2016-06-13] MEDS: ZOFRAN 4 MG/2 ML IVP PRN (08:41)
[2016-06-13] MEDS: ROCEPHIN 1 GM in SODIUM CHLORIDE 100 ML IV SCH (09:30)
[2016-06-13] MEDS: ATIVAN PO SCH ×3 (09:30→20:41)
[2016-06-13] MEDS ORDERED: DECADRON 4 MG/ML SDV IM STA (10:37)
[2016-06-13] MEDS ORDERED: MORPHINE 2 MG/ML SYRINGE IVP PRN ×2 (10:37→10:41)
[2016-06-13] MEDS: ZITHROMAX 500 MG in SODIUM CHLORIDE 250 ML IV SCH (11:04)
[2016-06-14] MEDS: DUONEB NEB SCH ×4 (04:55→22:45)
[2016-06-14] MEDS: PRILOSEC PO SCH (05:59)
[2016-06-14] MEDS: CARAFATE PO SCH ×4 (06:07→21:40)
[2016-06-14] MEDS: SYNTHROID PO SCH (06:08)
[2016-06-14] MEDS ORDERED: DECADRON 4 MG/ML SDV IVP STA (07:04)
[2016-06-14] MEDS ORDERED: LASIX IVP STA (07:04)
[2016-06-14] MEDS ORDERED: DECADRON 4 MG/ML SDV IM STA (07:14)
[2016-06-14 07:23] LABS: ABG PH 7.248 (7.35-7.45)
[2016-06-14 07:24] LABS: ABG BASE EXCESS 23 (-2.0-2.0); ABG PCO2 114.4 mmHg (35-45); ABG TCO2 > 50 (22.0-28.0)
[2016-06-14 07:56] LABS: BASOPHILS % (AUTO) 0.4 % (0.0-3.0); HEMATOCRIT 35.5 % (42.0-52.0); HEMOGLOBIN 10.4 g/dl (14.0-18.0); IMMATURE GRANULOCYTE % (AUTO) 1.5 % (0.0-5.0); LYMPHOCYTES # (AUTO) 0.9 K/uL (0.60-3.4); LYMPHOCYTES % (AUTO) 11.3 (10.0-50.0); MEAN CORPUSCULAR HEMOGLOBIN 30.1 pg (27.0-31.0); MEAN CORPUSCULAR HGB CONC 29.3 (31.8-35.4); MEAN CORPUSCULAR VOLUME 102.6 fl (80.0-94.0); MONOCYTES % (AUTO) 12.1 (0-10); NEUTROPHILS # (AUTO) 6.2 K/ul (2.0-6.9); NEUTROPHILS % (AUTO) 74.7; PLATELET COUNT 190 10^3/uL (140-440); RED BLOOD COUNT 3.46 10^6/ul (4.70-6.10); WHITE BLOOD COUNT 8.25 K/ul (4.2-10.2)
[2016-06-14 08:10] LABS: ALBUMIN 2.9 g/dL (3.4-5.0); ALBUMIN/GLOBULIN RATIO 0.73; ANION GAP 15.9; BILIRUBIN,TOTAL 0.38 mg/dL (0.00-1.20); BUN/CREATININE RATIO 23.59; CALCIUM 9.1 mg/dL (8.2-10.2); CREATININE 0.89 mg/dL (0.60-1.10); POTASSIUM 3.9 mmol/L (3.5-5.1); TOTAL PROTEIN 6.9 g/dL (5.8-8.1)
[2016-06-14] MEDS: ASPIRIN EC PO SCH (08:55)
[2016-06-14] MEDS: ATIVAN PO SCH ×3 (09:00→21:40)
[2016-06-14 09:34] LABS: ABG PH 7.369 (7.35-7.45)
[2016-06-14 09:35] LABS: ABG BASE EXCESS 25 (-2.0-2.0); ABG HCO3 50.7 (22.0-26.0); ABG PCO2 87.8 mmHg (35-45)
[2016-06-14 09:36] LABS: ABG TCO2 > 50 (22.0-28.0)
[2016-06-14] MEDS: JANUVIA PO SCH (09:52)
[2016-06-14] MEDS: LAMICTAL PO SCH ×2 (09:52→21:41)
[2016-06-14] MEDS: DALIRESP PO SCH (09:52)
[2016-06-14] MEDS: PRIMIDONE 50 MG PO SCH ×3 (09:53→21:41)
[2016-06-14] MEDS: ZYPREXA PO SCH ×2 (09:53→21:42)
[2016-06-14] MEDS: SYMBICORT 160-4.5 MCG INHALER IH SCH ×2 (09:53→21:42)
[2016-06-14] MEDS: ROCEPHIN 1 GM in SODIUM CHLORIDE 100 ML IV SCH (09:53)
[2016-06-14] MEDS: HYDROCHLOROTHIAZIDE PO SCH (09:53)
[2016-06-14] MEDS: FLOMAX PO SCH (09:53)
[2016-06-14] MEDS: NEURONTIN PO SCH ×2 (09:53→21:41)
[2016-06-14] MEDS: CARDIZEM PO SCH ×2 (09:56→21:41)
[2016-06-14] MEDS ORDERED: ATIVAN PO STA (12:50)
[2016-06-14] MEDS: ZOFRAN 4 MG/2 ML IVP PRN (15:50)
[2016-06-15 04:45] LABS: HEMATOCRIT 33.3 % (42.0-52.0); MEAN CORPUSCULAR HEMOGLOBIN 30.4 pg (27.0-31.0); MEAN CORPUSCULAR VOLUME 101.2 fl (80.0-94.0); PLATELET COUNT 170 10^3/uL (140-440); RED BLOOD COUNT 3.29 10^6/ul (4.70-6.10); WHITE BLOOD COUNT 6.05 K/ul (4.2-10.2)
[2016-06-15] MEDS: DUONEB NEB SCH ×4 (04:48→23:25)
[2016-06-15 04:52] LABS: ANISOCYTOSIS NOT PRESENT (NOT PRESENT)
[2016-06-15 05:14] LABS: ALBUMIN 2.7 g/dL (3.4-5.0); ALBUMIN/GLOBULIN RATIO 0.71; ANION GAP 11.2; BILIRUBIN,TOTAL 0.25 mg/dL (0.00-1.20); BUN/CREATININE RATIO 31.25; CALCIUM 8.8 mg/dL (8.2-10.2); CREATININE 0.8 mg/dL (0.60-1.10); POTASSIUM 4.2 mmol/L (3.5-5.1); TOTAL PROTEIN 6.5 g/dL (5.8-8.1)
[2016-06-15] MEDS: PRILOSEC PO SCH (05:44)
[2016-06-15] MEDS: SYNTHROID PO SCH (05:44)
[2016-06-15] MEDS: CARAFATE PO SCH ×4 (05:44→20:14)
[2016-06-15] MEDS: ROCEPHIN 1 GM in SODIUM CHLORIDE 100 ML IV SCH (08:21)
[2016-06-15] MEDS: ATIVAN PO SCH ×3 (09:43→15:50)
[2016-06-15] MEDS: ASPIRIN EC PO SCH (09:43)
[2016-06-15] MEDS: FLOMAX PO SCH (09:44)
[2016-06-15] MEDS: CARDIZEM PO SCH ×2 (09:44→20:14)
[2016-06-15] MEDS: DALIRESP PO SCH (09:44)
[2016-06-15] MEDS: HYDROCHLOROTHIAZIDE PO SCH (09:45)
[2016-06-15] MEDS: NEURONTIN PO SCH ×2 (09:46→20:15)
[2016-06-15] MEDS: JANUVIA PO SCH (09:46)
[2016-06-15] MEDS: LAMICTAL PO SCH ×2 (09:46→20:14)
[2016-06-15] MEDS: PRIMIDONE 50 MG PO SCH ×3 (09:47→20:15)
[2016-06-15] MEDS: SYMBICORT 160-4.5 MCG INHALER IH SCH ×2 (09:48→20:15)
[2016-06-15] MEDS: ZYPREXA PO SCH ×2 (09:48→20:15)
[2016-06-15] MEDS ORDERED: ATIVAN IVP PRN (16:41)
[2016-06-16 05:35] LABS: HEMATOCRIT 33.5 % (42.0-52.0); HEMOGLOBIN 10.2 g/dl (14.0-18.0); MEAN CORPUSCULAR HEMOGLOBIN 30.3 pg (27.0-31.0); MEAN CORPUSCULAR HGB CONC 30.4 (31.8-35.4); MEAN CORPUSCULAR VOLUME 99.4 fl (80.0-94.0); PLATELET COUNT 236 10^3/uL (140-440); RED BLOOD COUNT 3.37 10^6/ul (4.70-6.10); WHITE BLOOD COUNT 6.19 K/ul (4.2-10.2)
[2016-06-16] MEDS: DUONEB NEB SCH ×4 (05:39→22:59)
[2016-06-16] MEDS: CARAFATE PO SCH ×4 (05:50→20:02)
[2016-06-16] MEDS: PRILOSEC PO SCH (05:51)
[2016-06-16] MEDS: SYNTHROID PO SCH (05:51)
[2016-06-16 06:10] LABS: ALBUMIN 2.9 g/dL (3.4-5.0); ALBUMIN/GLOBULIN RATIO 0.73; ANION GAP 14.7; ANISOCYTOSIS NOT PRESENT (NOT PRESENT); BILIRUBIN,TOTAL 0.38 mg/dL (0.00-1.20); BUN/CREATININE RATIO 31.7; CALCIUM 9.3 mg/dL (8.2-10.2); CREATININE 0.82 mg/dL (0.60-1.10); POTASSIUM 3.7 mmol/L (3.5-5.1); TOTAL PROTEIN 6.9 g/dL (5.8-8.1)
[2016-06-16] MEDS ORDERED: DECADRON 4 MG/ML SDV IM STA (08:14)
[2016-06-16] MEDS: ROCEPHIN 1 GM in SODIUM CHLORIDE 100 ML IV SCH (08:47)
[2016-06-16] MEDS: ZYPREXA PO SCH ×2 (08:56→20:03)
[2016-06-16] MEDS: LAMICTAL PO SCH ×2 (08:56→20:02)
[2016-06-16] MEDS: NEURONTIN PO SCH ×2 (08:56→20:03)
[2016-06-16] MEDS: ASPIRIN EC PO SCH (08:57)
[2016-06-16] MEDS: FLOMAX PO SCH (08:57)
[2016-06-16] MEDS: HYDROCHLOROTHIAZIDE PO SCH (08:57)
[2016-06-16] MEDS: DALIRESP PO SCH (08:58)
[2016-06-16] MEDS: CARDIZEM PO SCH ×2 (08:58→20:02)
[2016-06-16] MEDS: JANUVIA PO SCH (08:58)
[2016-06-16] MEDS: PRIMIDONE 50 MG PO SCH ×3 (08:59→20:03)
[2016-06-16] MEDS: SYMBICORT 160-4.5 MCG INHALER IH SCH ×2 (08:59→20:03)
--- NOTE | 2016-06-16 09:15 | ECHO2D ---
Date of Exam: 06/14/16 Ordering Physician: MARLENY WELLER Reason for Echo: HYPERTENSION, CHRONIC LUNG DISEASE M-Mode Normal Adult Results LV Dimensions Normal Adult Results AoV Opening excursions >1.6 >1.6 LVEDD-base- 3.5-5.8 4.3 Ao root dimensions 2.0-3.7 3.2 LVESD-base- 3.1-4.6 L. Atrium dimensions 1.9-3.8 3.6 Post. Wall thickness 0.8-1.1 1.2 IV septum (thickness) 0.7-1.2 1.2 Post. Wall excursion 0.72-1.3 NORMAL Septal motion NORMAL Systolic motion R. Ventricular cavity 1.5-2.0 3.0 LVEF 60% 75% Paradoxical septal wall motion NORMAL 2-D : NORMAL VALVES--NORMAL LEFT VENTRICULAR CONTRACTILITY--NORMAL LEFT VENTRICLE AND LEFT ATRIAL CAVITIES, ENLARGED RIGHT VENTRICLE CAVITY, NO EFFUSION , NO THROMBUS M-MODE: MV: NORMAL AV: NORMAL TV: NORMAL PV: CHAMBER SIZE: ENLARGED RIGHT VENTRICLE CAVITY WALL MOTION: NORMAL PERICARDIUM: NORMAL INTERPRETATION: 1. LEFT VENTRICULAR HYPERTROPHY 2. ENLARGED RIGHT VENTRICLE CAVITY 3. NORMAL LEFT VENTRICULAR CONTRACTILITY 4. NORMAL VALVES MTDD
[2016-06-16 09:26] LABS: ABG PCO2 56.8 mmHg (35-45); ABG PH 7.476 (7.35-7.45)
[2016-06-16 09:29] LABS: ABG BASE EXCESS 18 (-2.0-2.0); ABG HCO3 41.9 (22.0-26.0); ABG TCO2 44 (22.0-28.0)
--- NOTE | 2016-06-16 13:44 | PN ---
DATE OF SERVICE: 06/14/16 SUBJECTIVE: The patient is a 71 year old white male hospitalized with pneumonia and respiratory failure. The patient' condition has improved somewhat but he is still in distress with little exertion. The patient has been put on BIPAP this morning and he's condition have improved some. This morning the patient was noted to have high pCO2 and pO2 more than 100 with low pH on 100%, non rebreather. REVIEW OF SYSTEMS: CONSTITUTIONAL: No night sweats. No fatigue, malaise, lethargy. No fever or chills. HEENT: Eyes: No visual changes. No eye pain. No eye discharge. ENT: No runny nose. No epistaxis. No sinus pain. No sore throat. No odynophagia. No congestion. RESPIRATORY: No cough, no congestion. No hemoptysis. CARDIOVASCULAR: No angina symptoms. No CHF symptoms. No atypical chest pain for CAD. No palpitations. Shortness of breath with wheezing. No PND. No orthopnea. He is restless. GASTROINTESTINAL: No abdominal pain. No nausea or vomiting. No diarrhea or constipation. No hematemesis. No hematochezia. GENITOURINARY: No urgency. No frequency. No dysuria. No hematuria. No obstructive symptoms. No discharge. No pain. No significant abnormal bleeding. MUSCULOSKELETAL: No musculoskeletal pain; no joint swelling. NEUROLOGICAL: No headache. No neck pain. No syncope. No seizures. No dizziness. PSYCHIATRIC: Not anxious. No depression. No suicidal thoughts. No homicidal thoughts. SKIN: No rash. No lesions. No wounds. ENDOCRINE: No unexplained weight loss. No weight gain. HEMATOLOGIC/LYMPHATIC: No anemia. No purpura. No petechiae. No prolonged or excessive bleeding. No palpable lymph nodes. PHYSICAL EXAMINATION: GENERAL: The patient is oriented to place and person. VITAL SIGNS: Temperature 99.9, pulse 100, respiratory rate 22, blood pressure 139/79 and pulse ox 92%. HEENT: Head normocephalic, atraumatic. Eyes: Extraocular muscles are intact. Pupils are equal, round and reactive to light and accommodation. Ears: No lesions. Nose appeared normal. Throat: No exudate or erythema. NECK: Supple. No JVD, no carotid bruit. No lymphadenopathy or thyromegaly. LUNGS:Decreased breath sounds, very shallow breaths. Percussion note normal. Chest symmetrical. HEART: S1, S2, no S3. No murmurs. No cyanosis or clubbing. No ascites. Pulses: Dorsalis pedis and posterior tibial pulses +1 to +2 both sides. ABDOMEN: Soft. Nontender. Bowel sounds active. No CVA tenderness. No mass felt. EXTREMITIES: No edema. Full range of motion of all extremities, equal. NEUROLOGIC: No focal deficit. Cranial nerves II through XII are grossly intact. No headache, no double vision or headache. SKIN: Not dry. Intact. Turgor - normal. LYMPHATIC: No palpable lymph nodes/no lymphedema. MUSCULOSKELETAL: Normal joints with no swelling. Muscle tone is normal. ASSESSMENT: 1. Acute pneumonitis, bilateral with respiratory failure 2. Severe chronic lung with his continued smoking 3. Anemia, chronic 4. Hypothyroidism 5. Diabetes Mellitus PLAN: 1. Continue breathing treatment 2. Continue oxygen with BIPAP 3. Continue Zyprexa and Ativan along with Lamictal 4. Rocephin to be continued. 5. The patient had echocardiogram done this morning which showed normal LV contractility and enlarged right ventricular cavity. 6. Will add Cardizem 60mg twice a day Family in the room. The patient's condition is stable but critical. Prognosis poor. Counseling for smoking done. I talked to respiratory therapist and discussed the case. The patient was on BIPAP and the blood gasses were somewhat better with the pH 7.36 with pO2 of 67 and pCO2 80. The patient was getting somewhat restless because of BIPAP. he was feeling nauseated and he may aspirated so it was discontinued. The patient is an Venturi mask 40% and he is saturation stays around 80's which is acceptable considering patient's history. The patient is in mild distress at times but resting. The patient will be give 1 -2mg every two hourly for restlessness. The patient's condition is deteriorating and the family especially the sister and the brother they are all aware of it. The patient is DNR. TIME SPENT: More than 30 minutes. Plan and coordination of the patient's care discussed in the presence of nurse. SUSANNE
--- NOTE | 2016-06-16 14:10 | PN ---
DATE OF SERVICE: 06/15/16 SUBJECTIVE: The patient is a 71 year old white male hospitalized with pneumonia and respiratory failure. The patient's condition as stabilized but it's critical. He doesn't seem to be in distress at this time but he is sleepy. The patient has CO2 retention. The patient's blood gasses where highly abnormal yesterday when he was 100% rebreather and then was switched to BIPAP and then later on switched to 40% oxygen on Venturi mask. The patient this afternoon had refused to wear oxygen. He didn't want anybody to do anything to him anymore. He has already had a talk to his family and he is at peace with himself and he doesn't want anybody both him anymore. His appetite has been very poor. REVIEW OF SYSTEMS: CONSTITUTIONAL: No night sweats. No fatigue, malaise, lethargy. No fever or chills. HEENT: Eyes: No visual changes. No eye pain. No eye discharge. ENT: No runny nose. No epistaxis. No sinus pain. No sore throat. No odynophagia. No congestion. RESPIRATORY: No cough, no congestion. No hemoptysis. CARDIOVASCULAR: No angina symptoms. No CHF symptoms. No atypical chest pain for CAD. No palpitations. No shortness of breath. GASTROINTESTINAL: No abdominal pain. No nausea or vomiting. No diarrhea or constipation. No hematemesis. No hematochezia. GENITOURINARY: No urgency. No frequency. No dysuria. No hematuria. No obstructive symptoms. No discharge. No pain. No significant abnormal bleeding. MUSCULOSKELETAL: No musculoskeletal pain; no joint swelling. NEUROLOGICAL: No headache. No neck pain. No syncope. No seizures. No dizziness. PSYCHIATRIC: Not anxious. No depression. No suicidal thoughts. No homicidal thoughts. SKIN: No rash. No lesions. No wounds. ENDOCRINE: No unexplained weight loss. No weight gain. HEMATOLOGIC/LYMPHATIC: No anemia. No purpura. No petechiae. No prolonged or excessive bleeding. No palpable lymph nodes. PHYSICAL EXAMINATION: GENERAL: The patient is oriented to time, place and person. VITAL SIGNS: Temperature 98.1, pulse 90, respiratory 20, blood pressure 124/69 and pulse ox 85% with 40% venturi mask. HEENT: Head normocephalic, atraumatic. Eyes: Extraocular muscles are intact. Pupils are equal, round and reactive to light and accommodation. Ears: No lesions. Nose appeared normal. Throat: No exudate or erythema. NECK: Supple. No JVD, no carotid bruit. No lymphadenopathy or thyromegaly. LUNGS: Decreased breath sounds but clear to auscultation. Percussion note normal. Chest symmetrical. HEART: S1, S2, no S3. No murmurs. No cyanosis or clubbing. No ascites. Pulses: Dorsalis pedis and posterior tibial pulses +1 to +2 both sides. ABDOMEN: Soft. Nontender. Bowel sounds active. No CVA tenderness. No mass felt. EXTREMITIES: No edema. Full range of motion of all extremities, equal. NEUROLOGIC: No focal deficit. Cranial nerves II through XII are grossly intact. No headache, no double vision or headache. SKIN: Not dry. Intact. Turgor - normal. LYMPHATIC: No palpable lymph nodes/no lymphedema. MUSCULOSKELETAL: Normal joints with no swelling. Muscle tone is normal. LABS: hgb 10, hct 33, WBC 6,000 normal differential, creatinine 0.8, BUN 25, potassium 4.2 and glucose 132. ASSESSMENT: 1. Respiratory failure, chronic now has acute exacerbation of COPD PLAN: 1. Continue intermittent steroid 2. Continue IV steroids 3. Continue IV antibiotics 4. We had done the echo which showed normal LV contractility, LVH PROGNOSIS: Poor The patient is already on NEBS treatment. The patient is DNR. 5. 6. TIME SPENT: More than 30 minutes. Plan and coordination of the patient's care discussed in the presence of nurse. SUSANNE
[2016-06-17] MEDS ORDERED: TYLENOL PO STA (04:48)
[2016-06-17] MEDS: DUONEB NEB SCH ×2 (04:58→11:08)
[2016-06-17 05:10] LABS: HEMATOCRIT 33.8 % (42.0-52.0); HEMOGLOBIN 10.9 g/dl (14.0-18.0); MEAN CORPUSCULAR HEMOGLOBIN 30.5 pg (27.0-31.0); MEAN CORPUSCULAR HGB CONC 32.2 (31.8-35.4); MEAN CORPUSCULAR VOLUME 94.7 fl (80.0-94.0); PLATELET COUNT 256 10^3/uL (140-440); RED BLOOD COUNT 3.57 10^6/ul (4.70-6.10); WHITE BLOOD COUNT 5.51 K/ul (4.2-10.2)
[2016-06-17 05:32] LABS: ANISOCYTOSIS NOT PRESENT (NOT PRESENT)
[2016-06-17] MEDS: CARAFATE PO SCH ×2 (05:55→11:50)
[2016-06-17] MEDS: SYNTHROID PO SCH (05:56)
[2016-06-17] MEDS: PRILOSEC PO SCH (05:56)
[2016-06-17 06:05] LABS: ALBUMIN/GLOBULIN RATIO 0.75; ANION GAP 16.2; BILIRUBIN,TOTAL 0.44 mg/dL (0.00-1.20); BUN/CREATININE RATIO 29.48; CALCIUM 9.5 mg/dL (8.2-10.2); CREATININE 0.78 mg/dL (0.60-1.10); POTASSIUM 3.2 mmol/L (3.5-5.1)
[2016-06-17] MEDS ORDERED: NON-FORMULARY MEDICATION (Cholecalciferol (Vitamin D3) [Vitamin D3] 50,000 UNIT) PO SCH (09:00)
[2016-06-17] MEDS ORDERED: KEFLEX PO SCH (09:00)
[2016-06-17] MEDS ORDERED: K-DUR PO SCH (09:00)
--- NOTE | 2016-06-17 09:23 | PN ---
DATE OF SERVICE: 06/13/16 SUBJECTIVE: The patient is a 71 year old white male hospitalized with pneumonia. The patient has chronic respiratory failure. The patient had worsening of his condition yesterday but has improved some and his breathing is somewhat better. No distress this morning. REVIEW OF SYSTEMS: CONSTITUTIONAL: No night sweats. No fatigue, malaise, lethargy. No fever or chills. HEENT: Eyes: No visual changes. No eye pain. No eye discharge. ENT: No runny nose. No epistaxis. No sinus pain. No sore throat. No odynophagia. No congestion. RESPIRATORY: No cough, no congestion. No hemoptysis. CARDIOVASCULAR: No angina symptoms. No CHF symptoms. No atypical chest pain for CAD. No palpitations. No shortness of breath. No PND. No Orthopnea. GASTROINTESTINAL: No abdominal pain. Mild nausea. No vomiting. No diarrhea or constipation. No hematemesis. No hematochezia.Appetite has improved some but not up to par so far. GENITOURINARY: No urgency. No frequency. No dysuria. No hematuria. No obstructive symptoms. No discharge. No pain. No significant abnormal bleeding. MUSCULOSKELETAL: No musculoskeletal pain; no joint swelling. NEUROLOGICAL: No headache. No neck pain. No syncope. No seizures. No dizziness. PSYCHIATRIC: Not anxious. No depression. No suicidal thoughts. No homicidal thoughts. SKIN: No rash. No lesions. No wounds. ENDOCRINE: No unexplained weight loss. No weight gain. HEMATOLOGIC/LYMPHATIC: No anemia. No purpura. No petechiae. No prolonged or excessive bleeding. No palpable lymph nodes. PHYSICAL EXAMINATION: GENERAL: The patient is oriented to time, place and person. VITAL SIGNS: Temperature 98.1, pulse 96, respiratory rate 24, blood pressure 116/62 and pulse ox 93% with 40% venturi mask. HEENT: Head normocephalic, atraumatic. Eyes: Extraocular muscles are intact. Pupils are equal, round and reactive to light and accommodation. Ears: No lesions. Nose appeared normal. Throat: No exudate or erythema. NECK: Supple. No JVD, no carotid bruit. No lymphadenopathy or thyromegaly. LUNGS: Decreased breath sounds but clear to auscultation. Percussion note normal. Chest symmetrical. HEART: S1, S2, no S3. No murmurs. No cyanosis or clubbing. No ascites. Pulses: Dorsalis pedis and posterior tibial pulses +1 to +2 both sides. ABDOMEN: Soft. Nontender. Bowel sounds active. No CVA tenderness. No mass felt. EXTREMITIES: No edema. Full range of motion of all extremities, equal. NEUROLOGIC: No focal deficit. Cranial nerves II through XII are grossly intact. No headache, no double vision or headache. SKIN: Not dry. Intact. Turgor - normal. LYMPHATIC: No palpable lymph nodes/no lymphedema. MUSCULOSKELETAL: Normal joints with no swelling. Muscle tone is normal. ASSESSMENT: 1. Respiratory failure seems to be improved some, still mild wheezing present 2. Severe chronic lung disease 3. Gastroesophageal reflux disease 4. Dyslipidemia 5. Depression with psychosis PLAN: 1. 1/2cc Decadron today 2. Continue NEB treatment 3. Continue Antibiotics 4. Advised to wear oxygen all the time CONDITION: Stable PROGNOSIS: Poor TIME SPENT: More than 30 minutes. Plan and coordination of the patient's care discussed in the presence of nurse. SUSANNE
--- NOTE | 2016-06-17 09:32 | PCM.PROG ---
Attending Provider: ATTENDING PROVIDER: Dr. MARLENY WELLER DATE OF SERVICE: 06/17/16 SUBJECTIVE: This 71 year old WHITE/ M was hospitalized 06/10/16. The patient is hospitalized with acute respiratory failure and pneumonia. His condition has improved. He is alert, oriented to time, place and person and wants to go home. Voice is stronger. REVIEW OF SYSTEMS: CONSTITUTIONAL: No night sweats. No fatigue, malaise, lethargy. No fever or chills. HEENT: Eyes: No visual changes. No eye pain. No eye discharge. ENT: No runny nose. No epistaxis. No sinus pain. No odynophagia. No congestion. RESPIRATORY: No cough, no congestion. No hemoptysis. CARDIOVASCULAR: No angina symptoms. No CHF symptoms. No atypical chest pain for CAD. No palpitations. No shortness of breath. GASTROINTESTINAL: No abdominal pain. No nausea or vomiting. No diarrhea or constipation. No hematemesis. No hematochezia. GENITOURINARY: No urgency. No frequency. No dysuria. No hematuria. No obstructive symptoms. No discharge. No pain. No significant abnormal bleeding. MUSCULOSKELETAL: No musculoskeletal pain; no joint swelling. NEUROLOGICAL: Awake, alert, oriented to time, place and person. No headache. No neck pain. No syncope. No seizures. No dizziness. PSYCHIATRIC: Not anxious. No depression. No suicidal thoughts. No homicidal thoughts. SKIN: No rash. No lesions. No wounds. ENDOCRINE: No unexplained weight loss. No weight gain. HEMATOLOGIC/LYMPHATIC: No anemia. No purpura. No petechiae. No prolonged or excessive bleeding. No palpable lymph nodes. PHYSICAL EXAMINATION: GENERAL: The patient is awake, alert and oriented, lying in bed in no distress. VITAL SIGNS: Temperature 97.7 F, Pulse 82, Respiratory Rate 16, BP 154/80, Pulse Ox 87% HEENT: Head normocephalic, atraumatic. Eyes: Extraocular muscles are intact. Pupils are equal, round and reactive to light and accommodation. Ears: No lesions. Nose appeared normal. Throat: No exudate or erythema. NECK: Supple. No JVD, no carotid bruit. No lymphadenopathy or thyromegaly. LUNGS: Decreased breath sounds. Clear to auscultation. Percussion note normal. Chest symmetrical. HEART: S1, S2, no S3. No murmurs. No cyanosis or clubbing. No ascites. Pulses: Dorsalis pedis and posterior tibial pulses +1 to +2 both sides. ABDOMEN: Soft. Non-tender. Bowel sounds active. No CVA tenderness. No mass felt. EXTREMITIES: No edema. Full range of motion of all extremities, equal. NEUROLOGIC: No focal deficit. Cranial nerves II through XII are grossly intact. No headache, no double vision or headache. SKIN: Not dry. Intact. Turgor-normal. LYMPHATIC: No palpable lymph nodes/no lymphedema. MUSCULOSKELETAL: Normal joints with no swelling. Muscle tone is normal. LAB REVIEW: 06/17/16 05:07 06/17/16 05:07 06/17/16 05:07: WBC 5.51, RBC 3.57 L, Hgb 10.9 L, Hct 33.8 L, MCV 94.7 H, MCH 30.5, MCHC 32.2, RDW Coeff of Evan 14.7, Plt Count 256, Neutrophils % (Manual) 55.0, Lymphocytes % (Manual) 38.0, Monocytes % (Manual) 7.0, Sodium 141, Potassium 3.2 L, Chloride 94 L, Carbon Dioxide 34 H, Anion Gap 16.2, BUN 23 H, Creatinine 0.78, Estimated GFR (MDRD) 98.00, BUN/Creatinine Ratio 29.48, Glucose 112, Calcium 9.5, Total Bilirubin 0.44, AST 25, ALT 18, Alkaline Phosphatase 48 L, Total Protein 7.0, Albumin 3.0 L, Globulin 4.0, Albumin/ Globulin Ratio 0.75 06/16/16 09:00: Puncture Site Rbrach, O2 Saturation 90.0 L, ABG pH 7.476 H, ABG pCO2 56.8 H, ABG pO2 57.0 L*, ABG HCO3 41.9 H, ABG Total CO2 44 H, ABG Base Excess 18 H, O2 Delivery Device Nc, Oxygen Liter Flow 4.00 ASSESSMENT: 1. Respiratory failure, chronic. 2. Pneumonia clinically resolved. 3. Nicotine use - counseling for smoking done. 4. Depression controlled. 5. Diabetes controlled. 6. Hypothyroidism controlled. PLAN: 1. Continue Flomax 2. Continue Gabapentin 3. Continue Synthroid 4. Hydrochlorothiazide 5. Carafate 1 gm p.o. as directed 6. Discharge home 7. Advised to wear oxygen 8. Advised good nutrition with more protein in his diet 9. Discontinue Zetia 10. Continue Zocor 11. Zyprexa 2.5 mg at night 12. Keflex 500 mg b.i.d. for five days 13. Nebs twice a day 14. Discontinue Sitagliptin/Januvia 26. K-Tab 20 mEq daily for 10 days 27. Cardizem 60 mg twice a day Plan and coordination of the patient's care discussed in the presence of Sales And Marketing Associate and nurse. EDUCATION: Discussed with the patient plans for discharge, plan of care, medications, nutrition; the patient voices understanding and is agreeable. Home Health has been contacted for nursing visits to include vital signs, medication management , nutritional assessment, bath aid and physical therapy. CONDITION: Stable with poor prognosis. The patient is noncompliant he has refused to go nh sister who is also sick takes care of him. SCRIBED BY: SANDY CASANOVA, Professional Advisor scribed while in presence of service performed by Dr. MARLENY WELLER on 06/17/16 ([id number])
[2016-06-17] MEDS: CARDIZEM PO SCH (09:33)
[2016-06-17] MEDS: SYMBICORT 160-4.5 MCG INHALER IH SCH (09:34)
[2016-06-17] MEDS: LAMICTAL PO SCH (09:34)
[2016-06-17] MEDS: FLOMAX PO SCH (09:35)
[2016-06-17] MEDS: HYDROCHLOROTHIAZIDE PO SCH (09:35)
[2016-06-17] MEDS: PRIMIDONE 50 MG PO SCH (09:35)
[2016-06-17] MEDS: NEURONTIN PO SCH (09:36)
[2016-06-17] MEDS: ASPIRIN EC PO SCH (09:36)
[2016-06-17] MEDS: DALIRESP PO SCH (09:36)
[2016-06-17] MEDS: DRISDOL PO SCH (09:36)
[2016-06-17 11:06] VITALS: BP 122/67; TEMP 98.5
--- NOTE | 2016-06-17 13:24 | PN ---
DATE OF SERVICE: 06/16/16 SUBJECTIVE: The patient is a 71 year old white male hospitalized with pneumonia and respiratory failure. The patient's condition is improved and he has decided not to wear oxygen all the time and wears it 2-3 liters. His arterial blood gasses looks a lot better with pO2 of 55, pCO2 54 with normal pH and saturation of 90% . The patient is somewhat confused but oriented to person and place. REVIEW OF SYSTEMS: CONSTITUTIONAL: No night sweats. No fatigue, malaise, lethargy. No fever or chills. No distress. HEENT: Eyes: No visual changes. No eye pain. No eye discharge. ENT: No runny nose. No epistaxis. No sinus pain. No sore throat. No odynophagia. No congestion. RESPIRATORY: Mild cough, no congestion. No hemoptysis. CARDIOVASCULAR: No angina symptoms. No CHF symptoms. No atypical chest pain for CAD. No palpitations. No shortness of breath. No PND. No orthopnea. GASTROINTESTINAL: No abdominal pain. No nausea or vomiting. No diarrhea or constipation. No hematemesis. No hematochezia. GENITOURINARY: No urgency. No frequency. No dysuria. No hematuria. No obstructive symptoms. No discharge. No pain. No significant abnormal bleeding. MUSCULOSKELETAL: No musculoskeletal pain; no joint swelling. NEUROLOGICAL: No headache. No neck pain. No syncope. No seizures. No dizziness. PSYCHIATRIC: Not anxious. No depression. No suicidal thoughts. No homicidal thoughts. SKIN: No rash. No lesions. No wounds. ENDOCRINE: No unexplained weight loss. No weight gain. HEMATOLOGIC/LYMPHATIC: No anemia. No purpura. No petechiae. No prolonged or excessive bleeding. No palpable lymph nodes. PHYSICAL EXAMINATION: GENERAL: The patient is oriented to time, place and person. VITAL SIGNS: Temperature 97.4, pulse 94, respiratory 28, blood pressure 136/67 and pulse ox 90% with 3 liters. HEENT: Head normocephalic, atraumatic. Eyes: Extraocular muscles are intact. Pupils are equal, round and reactive to light and accommodation. Ears: No lesions. Nose appeared normal. Throat: No exudate or erythema. NECK: Supple. No JVD, no carotid bruit. No lymphadenopathy or thyromegaly. LUNGS: Decreased breath sound with very poor air entry. Shallow breathing. Percussion note normal. Chest symmetrical. HEART: S1, S2, no S3. No murmurs. No cyanosis or clubbing. No ascites. Pulses: Dorsalis pedis and posterior tibial pulses +1 to +2 both sides. ABDOMEN: Soft. Nontender. Bowel sounds active. No CVA tenderness. No mass felt. EXTREMITIES: No edema. Full range of motion of all extremities, equal. NEUROLOGIC: No focal deficit. Cranial nerves II through XII are grossly intact. No headache, no double vision or headache. SKIN: Not dry. Intact. Turgor - normal. LYMPHATIC: No palpable lymph nodes/no lymphedema. MUSCULOSKELETAL: Normal joints with no swelling. Muscle tone is normal. LABS: Hgb 10.2, hct 33, WBC 6,100 normal differential, creatinine 0.8, BUN 26 and potassium 3.7. ASSESSMENT: 1. Respiratory failure 2. Smoking 3. Severe chronic lung disease 4. Anemia PLAN: 1. Give 1 cc Decadron 2. Continue antibiotics 3. Continue NEBS treatment PROGNOSIS: Poor The patient is non-complaint and doesn't want any blood to drawn, doesn't want to wear oxygen when he doesn't want to wear oxygen he doesn't want it. He would like to leave it to him whether he wants to wear the oxygen or not. CONDITION: Stable for now. TIME SPENT: More than 30 minutes. Plan and coordination of the patient's care discussed in the presence of nurse. SUSANNE
--- NOTE | 2016-06-17 14:34 | CM.DICTOOL ---
ADMISSION: 06/10/16 12:47 DISCHARGE: June 17, 2016 DATE OF SERVICE: 06/17/16 FINAL DIAGNOSIS Pneumonia Respiratory Failure, Chronic Nicotine Use Hypothyroid Hypertension CAD Dyslipidemia Diabetes Mellitus, Type 2 Depression BPH Osteoarthritis Cholecystectomy Hernia Repair LAST VITALS Temp Pulse Resp BP Pulse Ox 97.7 F 80 16 154/80 H 87 L 06/17/16 06:00 06/17/16 07:30 06/17/16 07:30 06/17/16 06:00 06/17/16 06:00 ACTIVE HOME MEDICATIONS Albuterol/Ipratropium (Duoneb) 1 vial NEB RTQ6H [facility] Stop: 06/20/16 17:59 Last Admin: 06/17/16 04:58 Dose: 1 vial Aspirin (Aspirin Ec) 81 mg PO DAILYWM [facility] Last Admin: 06/17/16 09:36 Dose: 81 mg Budesonide/Formoterol Fumarate (Symbicort 160-4.5 Mcg Inhaler) 2 puff IH BID [facility] Last Admin: 06/17/16 09:34 Dose: 2 puff Ergocalciferol (Drisdol) 50,000 unit PO We@0900 [facility] Last Admin: 06/17/16 09:36 Dose: 50,000 unit Gabapentin (Neurontin) 300 mg PO BID [facility] Last Admin: 06/17/16 09:36 Dose: 300 mg Hydrochlorothiazide (Hydrochlorothiazide) 12.5 mg PO DAILY [facility] Last Admin: 06/17/16 09:35 Dose: 12.5 mg Lamotrigine (Lamictal) 25 mg PO BID [facility] Last Admin: 06/17/16 09:34 Dose: 25 mg Levothyroxine Sodium (Synthroid) 75 mcg PO QDAC [facility] Last Admin: 06/17/16 05:56 Dose: Not Given Non-Formulary Medication (Primidone [Primidone]) 50 mg PO TID [facility] Last Admin: 06/17/16 09:35 Dose: 50 mg Olanzapine (Zyprexa) 2.5 mg PO BEDTIME [facility] Omeprazole (Prilosec) 20 mg PO QDAC [facility] Last Admin: 06/17/16 05:56 Dose: Not Given Roflumilast (Daliresp) 500 mcg PO DAILY [facility] Last Admin: 06/17/16 09:36 Dose: 500 mcg Sucralfate (Carafate) 1 gm PO ACHS [facility] Last Admin: 06/17/16 05:55 Dose: Not Given Tamsulosin HCl (Flomax) 0.4 mg PO DAILY [facility] Last Admin: 06/17/16 09:35 Dose: 0.4 mg Simvastatin (Zocor) 20 mg Bedtime Last Admin: Lorazepam 0.5 mg TID Last Admin: 06/15/2016 (IV) ALLERGIES codeine Adverse Reaction (Verified 02/29/16 14:05) metoclopramide HCl [From Reglan] Adverse Reaction (Verified 02/29/16 14:05) NEW PRESCRIPTIONS: K-tab 20 meq daily for 10 days. First dose today. Cardizem 60 mg twice daily Keflex 500 mg BID for 5 days. First dose today SMOKING: Advised to stop smoking DISEASE SPECIFIC EDUCATION: Oxygen increase to 4 liters Home health discussed Medication changes Importance of good nutrition Appointment LAB REVIEW: 06/17/16 05:07 06/17/16 05:07 06/17/16 05:07: WBC 5.51, RBC 3.57 L, Hgb 10.9 L, Hct 33.8 L, MCV 94.7 H, MCH 30.5, MCHC 32.2, RDW Coeff of Evan 14.7, Plt Count 256, Neutrophils % (Manual) 55.0, Lymphocytes % (Manual) 38.0, Monocytes % (Manual) 7.0, Sodium 141, Potassium 3.2 L, Chloride 94 L, Carbon Dioxide 34 H, Anion Gap 16.2, BUN 23 H, Creatinine 0.78, Estimated GFR (MDRD) 98.00, BUN/Creatinine Ratio 29.48, Glucose 112, Calcium 9.5, Total Bilirubin 0.44, AST 25, ALT 18, Alkaline Phosphatase 48 L, Total Protein 7.0, Albumin 3.0 L, Globulin 4.0, Albumin/ Globulin Ratio 0.75 PLAN: Discharge home with Disha Rose, sister Diet: Regular diet as tolerated, eat more protein (meat, eggs, cottage cheese, peanut butter) Activity: Resume as tolerated. Use oxygen at 4 liters continuous Medication changes: Stop Ezetimibe (Zetia) Stop Sitagliptin Phosphate (Januvia) Decrease Olanzapine (Zyprexa) to daily at bedtime [facility] has been contacted to provide the following: General Nursing Assessment; including Respiratory status, skin condition, oxygen saturation and vital signs Nutritional assessment Bath Aide Physical Therapy evaluation Medication Management An appointment is scheduled with Dr. Ceja on June 22, 2016 at 2:15 pm. Mr. Romero is alert and oriented to person and place. He is cooperative with care. He is forgetful and often repeats statements that are made to him. His appetite has been decreased, but breakfast intake today was 50%. He is able to feed himself. He is oxygen dependent and is tolerating 4 liters per nasal cannula with saturations 87-88%. He often removes the oxygen cannula with saturations dropping to 60-70%. He is able to transfer with minimal assistance of 2 staff members from the bed to the bedside commode and to the chair. He has not ambulated due to shortness of breath. Bruising is noted to both upper extremities. Skin is dry, turgor is fair. Stage 2 pressure ulcer is noted to the left buttock. This was present on admission from a fall (abrasion). Antoni Ceja MD
[2016-06-17] MEDS ORDERED: ZYPREXA PO SCH (21:00)
--- NOTE | 2016-06-18 15:54 | DS ---
DATE OF SERVICE: 06/17/16 FINAL DIAGNOSIS: 1. Pneumonia 2. Respiratory failure, chronic 3. Nicotine use 4. Hypothyroid 5. Hypertension 6. CAD 7. Dyslipidemia 8. Diabetes Mellitus, type 2 9. Depression 10.BPH 11.Osteoarthritis 12.Cholecystectomy 13.Hernia repair LAST VITALS: Temperature 97.7, pulse 80, respiratory rate 16, blood pressure 154/80 and pulse ox 87% DISCHARGE INSTRUCTIONS: Discharge home with Disha Rose, sister. Stop Ezetimibe. Stop Sitagliptin Phosphate. Decrease Olanzapine to daily at bedtime. An appointment is scheduled with Dr. Ceja on June 22 at 2:15pm. MEDICATIONS AT DISCHARGE: DUO NEBS Aspirin 81mg PO daily Drisdol 50,000 unit PO WE @0900 Neurontin 300ng PO twice a day Hydrochlorothiazide 12.5mg PO daily Lamictal 25mg PO twice a day Synthroid 75mcg PO QDAC Primidone 50mg PO three times a day Zyprexa 2.5mg PO bedtime Prilosec 20mg PO QDAC Daliresp 500mcg PO daily Carafate 1gm PO ACHS Flomax 0.4mg PO daily Zocor 20mg Bedtime Lorazepam 0.5mg Three times a day ALLERGIES: Codeine Metoclopramide HCL NEW PRESCRIPTIONS: K-tab 20meq for 10 days. First dose today. Cardizem 60mg twice daily Keflex 500mg twice a day for 5 days. First dose today. DIET INSTRUCTIONS: Regular diet as tolerated, eat more protein (meat, eggs, cottage cheese and peanut butter) ACTIVITY: Resume as tolerated. Use oxygen at 4 liters continuous SMOKING: Advised to stop smoking. DISEASE SPECIFIC EDUCATION: Oxygen increase to 4 liters. Home health discussed Medication changes Importance of good nutrition Appointment LABS: Hgb 10.9, hct 33, WBC 5,500 normal differential, creatinine 0.7, BUN 23, potassium 3.2, glucose 112. The patient has been given K-Tab for 10 days for hypokalemia. HOSPITAL COURSE: The patient is a 71 year old white male hospitalized with respiratory failure. The patient has chronic respiratory failure. The patient had acute exacerbation of COPD which was treated with IV antibiotics, steroids intermittently and NEB treatment. The patient's condition has improved and the COPD/bronchitis is under control. The ABG's done with 4 liters of oxygen yesterday showed pO2 of 56 with pCO2 of 55 with normal pH with 90% saturation. These blood gasses for the patient is really good. On the day of discharge he was oriented to time, place and person. His appetite has improved some. The patient is non-compliant at times he decides not to wear the oxygen then nobody can force him to do it. He is at times unreasonable. He is intelligent and has declined in the past to go to [facility]. He lives with the sister who is also sick. The patient is going to be discharged home in stable condition. His prognosis is poor as patient has continued to smoke. His COPD is quite severe with low vital capacity and low FEV1. The patient is taken off of Januvia and Zetia. He is going to be discharged on Keflex, rest of the medications were continued. Side effect of steroids discussed with him including avascular necrosis of the femoral head. CONDITION: Stable PROGNOSIS: Poor TIME SPENT: More than 60 minutes. SUSANNE
--- NOTE | 2016-06-19 08:44 | PN ---
06/10/16: Level 5 06/11/16: Intermediate 06/12/16: Intermediate 06/13/16: Intermediate 06/14/16: Intermediate 06/15/16: Intermediate 06/16/16: Intermediate 06/17/16: D as in discharge MTDD
== END 2016-06-17 12:55 | disposition home or self-care (01) | DRG 194 ==
LOC: ED 08:26 → MEDSURG A 12:47
PROVIDERS: ADMIT Internal Medicine; ATTEND Internal Medicine
DX: J18.1 Lobar pneumonia, unspecified organism (principal); J96.11 Chronic respiratory failure with hypoxia; J44.1 Chronic obstructive pulmonary disease with (acute) exacerbation; I51.7 Cardiomegaly; I10 Essential (primary) hypertension; E11.9 Type 2 diabetes mellitus without complications; D64.9 Anemia, unspecified; I25.10 Atherosclerotic heart disease of native coronary artery without angina pectoris; E78.5 Hyperlipidemia, unspecified; E03.9 Hypothyroidism, unspecified; F17.210 Nicotine dependence, cigarettes, uncomplicated; F32.9 Major depressive disorder, single episode, unspecified; N40.0 Benign prostatic hyperplasia without lower urinary tract symptoms; R51 Headache; R42 Dizziness and giddiness; R47.1 Dysarthria and anarthria; R63.0 Anorexia; Z91.19 Patient's noncompliance with other medical treatment and regimen; W19.XXXA Unspecified fall, initial encounter; Z79.899 Other long term (current) drug therapy; Z79.84 Long term (current) use of oral hypoglycemic drugs
CPT/HCPCS: 36415; 80053; 82550; 82553; 82803; 83605; 83880; 84145; 84484; 85007; 85025; 85379; 87040; 87651; 87804; 87880; 93005; 93010; 94640; 94660; 96361; 96365; 99284

== ENCOUNTER 2016-06-24 14:42 | Emergency (ER) ==
[2016-06-24 14:51] VITALS: BP 105/68; TEMP 98.2; BMI 21.1
--- NOTE | 2016-06-24 15:20 | ED.PDOC ---
General ED Provider: Dr. GEOFFREY LOO Chief Complaint: Respiratory Complaint Stated Complaint: Short of air; worse last night. Was in hospital [place] with pneumonia recently. DC'd 17 June Time Seen by Physician: 15:05 Mode of Arrival: Walk-In Information Source: Patient, Family Exam Limitations: No limitations Primary Care Provider: MARLENY WELLER Nursing and Triage Documentation Reviewed and Agree: Yes Review of Systems - Review Of Systems Constitutional: Reports: Weakness (chronic) Ears, Nose, Mouth, Throat: Reports: No symptoms Respiratory: Reports: Cough (no specific changes in intensity or frequency) Cardiac: Reports: No symptoms GI: Reports: Nausea (Today; no emesis) : Reports: No symptoms All Other Systems: Reviewed and Negative Past Medical History - Past Medical History Previously Healthy: No (Pneumonia; DC'd June 17) Endocrine: Reports: Hypothyroid, Dyslipidemia Cardiovascular: Reports: CAD, Hypertension Respiratory: Reports: COPD Hematological: Reports: Anemia Gastrointestinal: Reports: GERD Genitourinary: Reports: None Neuro/Psych: Reports: Anxiety, Depression Musculoskeletal: Reports: Arthritis, Back Pain, Joint Pain Cancer: Reports: Other - Surgical History General Surgical History: Reports: Cholecystectomy, Unknown - Family History Family History: Reports: Unknown - Social History Smoking Status: Former smoker, Light tobacco smoker Hx Substance Use: No Alcohol Screening: None Lives: With family - Immunizations Tetanus Shot up to Date: Yes Physical Exam - Physical Exam Appearance: Ill-appearing Ill-appearing: Moderate (Chronic appearance of COPD; oxygen dependent) Eyes: WILLIAM, EOMI Neck: Supple Respiratory: Airway patent, Breath sounds diminished Cardiovascular: RRR, Pulses normal GI/: Soft, Nontender Musculoskeletal: Normal strength Skin: Warm, Dry, Normal color Neurological: Sensation intact, Motor intact, Alert, Oriented Psychiatric: Affect appropriate, Mood appropriate Critical Care Note - Critical Care Note Total Time (mins): 35 Course - Course Hematology/Chemistry: 06/24/16 15:25 06/24/16 15:25 Orders, Labs, Meds: Lab Review 06/24/16 15:25 WBC 4.89 RBC 3.57 L Hgb 10.6 L Hct 34.7 L MCV 97.2 H MCH 29.7 MCHC 30.5 L RDW Coeff of Evan 14.5 Plt Count 307 Immature Gran % (Auto) 0.4 Neut % (Auto) 55.4 Lymph % (Auto) 29.9 [place] % (Auto) 9.8 Eos % (Auto) 4.1 Baso % (Auto) 0.4 Immature Gran # (Auto) 0.0 Neut # 2.7 Lymph # 1.5 [place] # 0.5 Eos # 0.2 Baso # 0.0 Sodium 141 Potassium 4.6 Chloride 95 L Carbon Dioxide 40 H Anion Gap 10.6 BUN 13 Creatinine 0.81 Estimated GFR (MDRD) 94.00 BUN/Creatinine Ratio 16.04 Glucose 127 H Calcium 9.5 Total Bilirubin 0.25 AST 16 ALT 8 L Alkaline Phosphatase 53 L Total Protein 7.2 Albumin 3.0 L Globulin 4.2 Albumin/Globulin Ratio 0.71 Orders Category Date Time Status CBC W/ AUTO DIFF Stat LAB 06/24/16 15:25 Completed COMPREHENSIVE METABOLIC PANEL Stat LAB 06/24/16 15:25 Completed Methylprednisolone Sod Succ/Pf [Solu-Medrol 40 mg] MEDS 06/24/16 16:38 Discontinued 80 mg IVP ONCE STA CHEST, 1V AP ONLY Stat RADS 06/24/16 15:18 Completed Medications Discontinued Medications Generic Name Dose Route Start Last Admin Trade Name Freq PRN Reason Stop Dose Admin Methylprednisolone Sodium Succinate 80 mg 06/24/16 16:38 Solu-Medrol 40 Mg IVP 06/24/16 16:39 ONCE STA Vital Signs: Temp Pulse Resp BP Pulse Ox 06/24/16 14:43 98.2 F 96 H 24 105/68 90 L Departure - Departure Time of Disposition: 16:42 Disposition: HOME SELF-CARE Discharge Problem: COPD (chronic obstructive pulmonary disease) Instructions: COPD (Chronic Obstructive Pulmonary Disease) (ED) Condition: Good Pt referred to PMD for follow-up: Yes (Call for appointment) Additional Instructions: Follow up with primary care; call for appointment. Return to ER if worsening meanwhile or with temperature of 101.5 or above. Allergies/Adverse Reactions: Allergies codeine Adverse Reaction (Verified 02/29/16 14:05) metoclopramide HCl [From Reglan] Adverse Reaction (Verified 02/29/16 14:05) Home Medications: Ambulatory Orders Gabapentin 300 mg PO BID 11/18/13 Simvastatin [Zocor] 20 mg PO BEDTIME 11/18/13 Tamsulosin HCl 0.4 mg PO DAILY 11/18/13 Ipratropium/Albuterol Neb [Duoneb] 1 vial INH BID 01/13/14 Levothyroxine Sodium [Synthroid] 75 mcg PO QDAC 01/13/14 Budesonide/Formoterol Fumarate [Symbicort 160-4.5 Mcg Inhaler] 2 puff IH BID Hydrochlorothiazide 12.5 mg PO DAILY 05/10/15 Sucralfate [Carafate] 1 gm PO DIRECTED 05/10/15 Lamotrigine [Lamictal] 25 mg PO BID #60 11/21/15 Lorazepam 0.5 mg PO TID #90 11/21/15 Cholecalciferol (Vitamin D3) [Vitamin D] 50,000 unit PO WEEKLY 02/29/16 Omeprazole [Prilosec] 20 mg PO QDAC 02/29/16 Roflumilast [Daliresp] 500 mcg PO DAILY 02/29/16 Primidone 50 mg PO TID #90 05/07/16 Aspirin [Ecotrin] 81 mg PO DAILY 06/10/16 Cephalexin [Keflex] 500 mg PO Q12HR #9 capsule 06/17/16 Diltiazem HCl [Cardizem] 60 mg PO Q12HR #60 tablet 06/17/16 Potassium Chloride [K-Dur] 20 meq PO DAILY #9 tab 06/17/16 Disposition Discussed With: Patient
[2016-06-24 15:33] LABS: BASOPHILS % (AUTO) 0.4 % (0.0-3.0); EOSINOPHILS # (AUTO) 0.2 K/ul (0.0-0.7); EOSINOPHILS % (AUTO) 4.1 % (0.0-7.0); HEMATOCRIT 34.7 % (42.0-52.0); HEMOGLOBIN 10.6 g/dl (14.0-18.0); IMMATURE GRANULOCYTE % (AUTO) 0.4 % (0.0-5.0); LYMPHOCYTES # (AUTO) 1.5 K/uL (0.60-3.4); LYMPHOCYTES % (AUTO) 29.9 (10.0-50.0); MEAN CORPUSCULAR HEMOGLOBIN 29.7 pg (27.0-31.0); MEAN CORPUSCULAR HGB CONC 30.5 (31.8-35.4); MEAN CORPUSCULAR VOLUME 97.2 fl (80.0-94.0); MONOCYTES # (AUTO) 0.5 K/uL (0.4-2.0); MONOCYTES % (AUTO) 9.8 (0-10); NEUTROPHILS # (AUTO) 2.7 K/ul (2.0-6.9); NEUTROPHILS % (AUTO) 55.4; PLATELET COUNT 307 10^3/uL (140-440); RED BLOOD COUNT 3.57 10^6/ul (4.70-6.10); WHITE BLOOD COUNT 4.89 K/ul (4.2-10.2)
--- NOTE | 2016-06-24 15:52 | DI ---
EXAM: Single frontal view of the chest HISTORY: Congestion and cough. COMPARISON: Chest x-ray 06/10/2016 FINDINGS: Cardiomediastinal silhouette is unremarkable. There is hazy ground-glass consolidation in the medial right lower lobe which is similar in appearance to 06/10/2016. There are linear ground- glass opacities in the bilateral lung bases. There is apical emphysematous disease present. No foc al nodule is identified. The osseous structures are unremarkable. IMPRESSION: Findings consistent with emphysema and chronic obstructive pulmonary disease. Lower lobe linear pita und-glass opacities may represent chronic airway thickening versus acute airway inflammation/infecti on. There is no acute consolidation identified.
[2016-06-24 16:02] LABS: ALBUMIN/GLOBULIN RATIO 0.71; ANION GAP 10.6; BILIRUBIN,TOTAL 0.25 mg/dL (0.00-1.20); BUN/CREATININE RATIO 16.04; CALCIUM 9.5 mg/dL (8.2-10.2); CREATININE 0.81 mg/dL (0.60-1.10); POTASSIUM 4.6 mmol/L (3.5-5.1); TOTAL PROTEIN 7.2 g/dL (5.8-8.1)
[2016-06-24] MEDS ORDERED: SOLU-MEDROL 40 MG IVP STA (16:38)
== END 2016-06-24 17:11 | disposition home or self-care (01) ==
LOC: ED 14:42
DX: J44.9 Chronic obstructive pulmonary disease, unspecified (principal); Z99.81 Dependence on supplemental oxygen; Z79.899 Other long term (current) drug therapy
CPT/HCPCS: 36415; 80053; 85025; 96372; 99283

== ENCOUNTER 2016-07-29 12:15 | Outpatient (CLI) | payer OTHER ==
[2016-07-29 12:33] VITALS: BMI 20.3
== END 2016-07-29 12:16 | disposition home or self-care (01) ==
LOC: AMBL 12:15
PROVIDERS: ATTEND Emergency Medicine
DX: R06.02 Shortness of breath (principal); R42 Dizziness and giddiness; W19.XXXA Unspecified fall, initial encounter

== ENCOUNTER 2016-07-29 12:28 | Emergency (ER) | payer OTHER ==
[2016-07-29 12:33] VITALS: BP 116/59; TEMP 96.3; BMI 20.3
--- NOTE | 2016-07-29 12:41 | ED.PDOC ---
General ED Provider: Dr. GRIS SADLER JR Chief Complaint: Fall Stated Complaint: pt states he got dizzy and passed out and fell to the floor. complains of pain to back of head and left hip pain. [ End ]30 min 96.3 86 22 96% 116/59 5/10 Time Seen by Physician: 12:40 Mode of Arrival: Ambulance Information Source: Patient, EMT Exam Limitations: No limitations Primary Care Provider: MARLENY WELLER Nursing and Triage Documentation Reviewed and Agree: No Review of Systems - Review Of Systems Constitutional: Reports: No symptoms Eyes: Reports: No symptoms Ears, Nose, Mouth, Throat: Reports: No symptoms Respiratory: Reports: Short of air Cardiac: Reports: Lightheadedness GI: Reports: No symptoms : Reports: No symptoms Musculoskeletal: Reports: Joint pain (left hip), Neck pain (mid neck after fall) Skin: Reports: No symptoms Neurological: Reports: No symptoms Endocrine: Reports: No symptoms Hematologic/Lymphatic: Reports: No symptoms All Other Systems: Other Past Medical History - Past Medical History Previously Healthy: No (Pneumonia; DC'd June 17) Endocrine: Reports: Hypothyroid, Dyslipidemia Cardiovascular: Reports: CAD, Hypertension Respiratory: Reports: COPD Hematological: Reports: Anemia Gastrointestinal: Reports: GERD Genitourinary: Reports: None Neuro/Psych: Reports: Anxiety, Depression Musculoskeletal: Reports: Arthritis, Back Pain, Joint Pain Cancer: Reports: Other Other Pertinent Past Medical History: sepd - Surgical History General Surgical History: Reports: Cholecystectomy - Family History Family History: Reports: Unknown - Social History Smoking Status: Former smoker, Light tobacco smoker Hx Substance Use: No Alcohol Screening: None Physical Exam - Physical Exam Appearance: Ill-appearing, Obese Ill-appearing: Mild Pain Distress: Mild Eyes: WILLIAM, EOMI, Conjunctiva clear ENT: Ears normal Neck: Supple (tender mid posterior) Respiratory: Airway patent, Breath sounds equal, Breath sounds diminished, Respirations nonlabored, Rhonchi Cardiovascular: RRR, Pulses normal, No rub, No murmur GI/: Soft, Nontender, No masses, Bowel sounds normal, No Organomegaly Musculoskeletal: Normal strength, ROM intact, No edema, No calf tenderness Skin: Warm, Dry, Normal color Neurological: Sensation intact, Motor intact, Reflexes intact, Cranial nerves intact, Alert Psychiatric: Affect appropriate, Mood appropriate Critical Care Note - Critical Care Note Total Time (mins): 2 Course - Course Orders, Labs, Meds: Orders Category Date Time Status ACCUCHECK (ED) [ED ACCUCHECK ASSESSMENT] .ONCE EMERGENCY 07/29/16 13:[address] CERVICAL SPINE W/O CONTRAST Stat RADS 07/29/16 12:[address] HEAD W/O CONTRAST Stat RADS 07/29/16 12:37 Completed PELVIS & MASTER HIPS Stat RADS 07/29/16 12:37 Completed Vital Signs: Temp Pulse Resp BP Pulse Ox 07/29/16 12:28 96.3 F L 86 22 116/59 L 96 Departure - Departure Time of Disposition: 14:09 Disposition: HOME SELF-CARE Discharge Problem: Falls COPD (chronic obstructive pulmonary disease) Qualifiers: Emphysema type: panlobular Head injury due to trauma Qualifiers: Encounter type: initial encounter Qualifier Code: (S09.90XA) Unspecified injury of head, initial encounter Instructions: Fall Prevention for Older Adults (ED), Head Injury (ED) Condition: Fair Pt referred to PMD for follow-up: Yes Additional Instructions: Blood sugar of 91 was normal Tylenol 650 mg four times a day as needed for pain Please follow-up with Dr. Weller in 1-3 days. check hourly while awake and every 2 hours at night- return if mental changes vomiting or not sleeping normally use oxygen as ordered Allergies/Adverse Reactions: Allergies codeine Adverse Reaction (Verified 07/29/16 12:33) metoclopramide HCl [From Reglan] Adverse Reaction (Verified 07/29/16 12:33) Home Medications: Ambulatory Orders Gabapentin 300 mg PO BID 11/18/13 Simvastatin [Zocor] 20 mg PO BEDTIME 11/18/13 Tamsulosin HCl 0.4 mg PO DAILY 11/18/13 Ipratropium/Albuterol Neb [Duoneb] 1 vial INH BID 01/13/14 Levothyroxine Sodium [Synthroid] 75 mcg PO QDAC 01/13/14 Budesonide/Formoterol Fumarate [Symbicort 160-4.5 Mcg Inhaler] 2 puff IH BID Hydrochlorothiazide 12.5 mg PO DAILY 05/10/15 Sucralfate [Carafate] 1 gm PO DIRECTED 05/10/15 Lamotrigine [Lamictal] 25 mg PO BID #60 11/21/15 Lorazepam 0.5 mg PO TID #90 11/21/15 Cholecalciferol (Vitamin D3) [Vitamin D] 50,000 unit PO WEEKLY 02/29/16 Omeprazole [Prilosec] 20 mg PO QDAC 02/29/16 Roflumilast [Daliresp] 500 mcg PO DAILY 02/29/16 Primidone 50 mg PO TID #90 05/07/16 Aspirin [Ecotrin] 81 mg PO DAILY 06/10/16 Diltiazem HCl [Cardizem] 60 mg PO Q12HR #60 tablet 06/17/16 Potassium Chloride [K-Dur] 20 meq PO DAILY #9 tab 06/17/16
--- NOTE | 2016-07-29 13:48 | CT ---
EXAM: CT BRAIN HISTORY: Fall, neck and head pain TECHNIQUE: CT brain without intravenous contrast. 5-mm axial sections with Reformations. COMPARISON: 06/10/2016 FINDINGS: Mild generalized atrophy. Mild to moderate chronic microvascular ischemic change is suggested. The se findings are stable. Brain otherwise is unremarkable without distinct evidence of hemorrhage or large vessel distribution recent ischemic infarction. There is no suggestion of acute hydrocephalus or subdural fluid collection. No mass or mass effect. Cranium is within normal limits. Mastoid air cells are aerated. The visualized paranasal sinuses are clear. IMPRESSION: No acute intracranial process. No skull fracture.
--- NOTE | 2016-07-29 13:54 | CT ---
EXAM: CT of the cervical spine without contrast History: Head and neck trauma. Technique: Multiplanar CT images through the cervical spine were obtained without the administratio n of IV contrast Findings: Emphysema seen within the upper lungs. Atherosclerotic vascular calcifications. The visu alized airway remains patent. No acute fracture or subluxation of the cervical spine. No preverteb ral soft tissue swelling. Predental space is not widened. Mild to moderate degenerative disc disea se at C6-7 Bony spinal canal is not compromised. Impression: 1. No acute osseous abnormality of the cervical spine. 2. Mild to moderate degenerative disc disease at C6-7. 3. Emphysema within the visualized lungs.
--- NOTE | 2016-07-29 13:56 | DI ---
EXAM: Radiographs, pelvis and bilateral hip HISTORY: Initial presentation for pelvic trauma due to a fall. COMPARISON: CT 01/17/2014. TECHNIQUE: Three views. FINDINGS: Bone mineralization is decreased. There is no fracture or dislocation. The joint spaces are maintained. No focal soft tissue abnormality is seen. IMPRESSION: No fracture or dislocation.
== END 2016-07-29 14:54 | disposition home or self-care (01) ==
LOC: ED 12:28
DX: S09.90XA Unspecified injury of head, initial encounter (principal); J43.1 Panlobular emphysema; M25.552 Pain in left hip; R55 Syncope and collapse; W19.XXXA Unspecified fall, initial encounter; Z79.899 Other long term (current) drug therapy
CPT/HCPCS: 82962; 99283

== ENCOUNTER 2016-11-23 08:52 | Outpatient (CLI) ==
--- NOTE | 2016-11-23 09:54 | CT ---
EXAM: CT abdomen pelvis with contrast HISTORY: Anemia, blood loss COMPARISON: 01/17/2014 TECHNIQUE: CT abdomen pelvis performed with intravenous contrast. Coronal and sagittal reformatted images obtained. FINDINGS: There is bibasilar atelectasis and/or consolidation, left greater than right. Emphysemat ous change lung bases. No free air. No acute abnormalities of the bones. Degenerative change in t he spine. Heart normal in size. Liver appears normal. Patient status post cholecystectomy. Pancr eas unremarkable. Granulomatous calcification in the spleen. Spleen otherwise unremarkable. Adren als unremarkable. Kidneys unremarkable. There is an infrarenal abdominal aortic aneurysm, saccular appearing and eccentric to the left, measuring 4.0 cm and mildly increased from prior examination, previously 3.7 cm. Additional area of borderline aneurysmal dilation abdominal aorta just superior t o this measuring 3.0 cm. Moderate atherosclerosis. Bladder unremarkable. Small fat-containing left inguinal hernia. Prostate mildly enlarged. No lymphadenopathy or ascites. Stomach appears normal . No dilated loops small bowel. Appendix appears normal. Colonic diverticulosis. No inflammatory stranding identified in the abdomen pelvis. IMPRESSION: 1. No acute inflammatory process identified in the abdomen or pelvis. 2. Colonic diverticulosis. 3. Saccular appearing infrarenal abdominal aortic aneurysm measuring up to 4.0 cm, mildly increased from 2014 when it measured 3.7 cm. Additional area of borderline aneurysmal dilation abdominal aort a just superior to this measuring 3.0 cm. 4. Left greater than right bibasilar atelectasis and/or pneumonia. Emphysema 5. Mildly enlarged prostate.
== END 2016-11-23 08:53 | disposition home or self-care (01) ==
LOC: RAD 08:52
PROVIDERS: ATTEND Internal Medicine
DX: D50.0 Iron deficiency anemia secondary to blood loss (chronic) (principal)

== ENCOUNTER 2017-01-13 11:50 | Inpatient (IN) ==
[2017-01-13] MEDS ORDERED: ATROPINE SULFATE PFS IVP PRN (12:34)
[2017-01-13] MEDS ORDERED: VISTARIL INJ IM PRN (12:34)
[2017-01-13] MEDS ORDERED: TYLENOL PO PRN (12:34)
[2017-01-13] MEDS ORDERED: NITROSTAT SL PRN (12:34)
[2017-01-13] MEDS ORDERED: MORPHINE 4 MG/ML VIAL IVP PRN (12:34)
[2017-01-13] MEDS ORDERED: LASIX IVP STA (12:37)
[2017-01-13 12:43] LABS: ABG BASE EXCESS 16 (-2.0-2.0); ABG HCO3 39.7 (22.0-26.0); ABG PCO2 58.1 mmHg (35-45); ABG PH 7.443 (7.35-7.45); ABG TCO2 41 (22.0-28.0)
[2017-01-13 13:42] LABS: BASOPHILS % (AUTO) 0.3 % (0.0-3.0); EOSINOPHILS # (AUTO) 0.2 K/ul (0.0-0.7); EOSINOPHILS % (AUTO) 2.4 % (0.0-7.0); HEMATOCRIT 41.7 % (42.0-52.0); HEMOGLOBIN 13.8 g/dl (14.0-18.0); IMMATURE GRANULOCYTE % (AUTO) 0.3 % (0.0-5.0); LYMPHOCYTES # (AUTO) 1.4 K/uL (0.60-3.4); LYMPHOCYTES % (AUTO) 22.4 (10.0-50.0); MEAN CORPUSCULAR HEMOGLOBIN 29.9 pg (27.0-31.0); MEAN CORPUSCULAR HGB CONC 33.1 (31.8-35.4); MEAN CORPUSCULAR VOLUME 90.5 fl (80.0-94.0); MONOCYTES # (AUTO) 0.5 K/uL (0.4-2.0); MONOCYTES % (AUTO) 7.6 (0-10); NEUTROPHILS # (AUTO) 4.2 K/ul (2.0-6.9); PLATELET COUNT 210 10^3/uL (140-440); RED BLOOD COUNT 4.61 10^6/ul (4.70-6.10); WHITE BLOOD COUNT 6.33 K/ul (4.2-10.2)
[2017-01-13] MEDS ORDERED: MIRALAX PO PRN (14:05)
[2017-01-13] MEDS ORDERED: NORCO 5-325 PO PRN (14:05)
[2017-01-13 14:23] VITALS: BMI 24.5
[2017-01-13 14:34] LABS: ALBUMIN 3.6 g/dL (3.4-5.0); ALBUMIN/GLOBULIN RATIO 0.97; ANION GAP 13.7; BILIRUBIN,TOTAL 0.28 mg/dL (0.00-1.20); BUN/CREATININE RATIO 14.63; CALCIUM 9.7 mg/dL (8.2-10.2); CREATININE 0.82 mg/dL (0.60-1.10); POTASSIUM 3.7 mmol/L (3.5-5.1); TOTAL PROTEIN 7.3 g/dL (5.8-8.1); TROPONIN I 0.025 ng/ml (0.0000-0.4000)
[2017-01-13 14:37] LABS: BILIRUBIN,URINE Negative (NEGATIVE); KETONES,URINE Negative (NEGATIVE); LEUKOCYTE ESTERASE ,URINE Negative (NEGATIVE); NITRITE,URINE Negative (NEGATIVE); PROTEIN,URINE 1+ (NEGATIVE); URINE, BLOOD Trace-intact (NEGATIVE)
[2017-01-13 14:38] LABS: ADD URINE MICROSCOPIC YES
[2017-01-13] MEDS: ROCEPHIN 1 GM in SODIUM CHLORIDE 50 ML IV SCH (14:38)
[2017-01-13] MEDS: SOLU-CORTEF 250 MG IVP SCH ×2 (14:38→20:55)
[2017-01-13 14:39] LABS: CREATINE KINASE MB 15.1 ng/ml (0.0-3.6)
[2017-01-13] MEDS: ATIVAN PO SCH ×2 (14:39→20:52)
[2017-01-13] MEDS: ZITHROMAX PO SCH (14:39)
[2017-01-13] MEDS: CARAFATE PO SCH ×2 (14:39→20:54)
--- NOTE | 2017-01-13 15:45 | DI ---
EXAM: Chest one view HISTORY: Cough, shortness of air COMPARISON: 06/24/2016 TECHNIQUE: Single view of the chest was performed FINDINGS: Emphysema. Bibasilar scarring. No definite airspace consolidation. There is no pleural effusion or pneumothorax. The heart is normal in size. The mediastinal contour is normal, noting. There are no acute abnormalities of the bones. IMPRESSION: Emphysema with bibasilar scarring. No definite acute cardiopulmonary process.
[2017-01-13] MEDS ORDERED: NON-FORMULARY MEDICATION (Simvastatin [Zocor] 20 MG) PO SCH ×22 (17:00)
[2017-01-13] MEDS: PULMICORT 0.5 MG/2 ML NEB SCH (17:06)
[2017-01-13] MEDS: XOPENEX 1.25 MG NEB SCH ×2 (17:06→22:30)
[2017-01-13] MEDS: ZOCOR PO SCH (17:13)
[2017-01-13] MEDS: PRIMIDONE 50 MG PO SCH ×2 (17:13→20:55)
[2017-01-13] MEDS: FLOMAX PO SCH (17:14)
[2017-01-13] MEDS: SYMBICORT 160-4.5 MCG INHALER IH SCH (20:51)
[2017-01-13] MEDS: FERROUS SULFATE PO SCH (20:53)
[2017-01-13] MEDS: ZYPREXA PO SCH (20:53)
[2017-01-13] MEDS: LAMICTAL PO SCH (20:53)
[2017-01-13] MEDS: CARDIZEM PO SCH (20:54)
[2017-01-13] MEDS: NEURONTIN PO SCH (20:54)
[2017-01-13] MEDS ORDERED: NON-FORMULARY MEDICATION (Ferrous Sulfate [Ferrous Sulfate] 1 TAB) PO SCH (21:00)
[2017-01-13] MEDS ORDERED: NON-FORMULARY MEDICATION (Gabapentin [Gabapentin] 300 MG) PO SCH (21:00)
[2017-01-13 21:46] LABS: TROPONIN I 0.032 ng/ml (0.0000-0.4000)
[2017-01-13 21:48] LABS: CREATINE KINASE MB 11.2 ng/ml (0.0-3.6)
[2017-01-14] MEDS: PULMICORT 0.5 MG/2 ML NEB SCH ×2 (04:44→17:04)
[2017-01-14] MEDS: XOPENEX 1.25 MG NEB SCH ×4 (04:44→22:30)
[2017-01-14 05:31] LABS: BASOPHILS % (AUTO) 0.2 % (0.0-3.0); HEMATOCRIT 40.3 % (42.0-52.0); HEMOGLOBIN 13.3 g/dl (14.0-18.0); IMMATURE GRANULOCYTE % (AUTO) 1.1 % (0.0-5.0); LYMPHOCYTES # (AUTO) 0.8 K/uL (0.60-3.4); LYMPHOCYTES % (AUTO) 12.7 (10.0-50.0); MEAN CORPUSCULAR HEMOGLOBIN 29.6 pg (27.0-31.0); MEAN CORPUSCULAR VOLUME 89.8 fl (80.0-94.0); MONOCYTES # (AUTO) 0.2 K/uL (0.4-2.0); NEUTROPHILS # (AUTO) 5.2 K/ul (2.0-6.9); PLATELET COUNT 198 10^3/uL (140-440); RED BLOOD COUNT 4.49 10^6/ul (4.70-6.10); WHITE BLOOD COUNT 6.23 K/ul (4.2-10.2)
[2017-01-14] MEDS: PRILOSEC PO SCH (05:41)
[2017-01-14] MEDS: SYNTHROID PO SCH (05:41)
[2017-01-14 05:50] LABS: ALBUMIN 3.3 g/dL (3.4-5.0); ALBUMIN/GLOBULIN RATIO 0.92; ANION GAP 15.5; BILIRUBIN,TOTAL 0.22 mg/dL (0.00-1.20); BUN/CREATININE RATIO 15.46; CALCIUM 9.5 mg/dL (8.2-10.2); CREATININE 0.97 mg/dL (0.60-1.10); POTASSIUM 3.5 mmol/L (3.5-5.1); TOTAL PROTEIN 6.9 g/dL (5.8-8.1)
[2017-01-14] MEDS: PRIMIDONE 50 MG PO SCH ×3 (08:39→20:43)
[2017-01-14] MEDS: DALIRESP PO SCH (08:40)
[2017-01-14] MEDS: ASPIRIN EC PO SCH (08:40)
[2017-01-14] MEDS: FERROUS SULFATE PO SCH ×2 (08:40→20:44)
[2017-01-14] MEDS: SYMBICORT 160-4.5 MCG INHALER IH SCH ×2 (08:40→20:43)
[2017-01-14] MEDS: CARAFATE PO SCH ×3 (08:40→20:44)
[2017-01-14] MEDS: NEURONTIN PO SCH ×2 (08:40→20:44)
[2017-01-14] MEDS: ZITHROMAX PO SCH (08:40)
[2017-01-14] MEDS: HYDROCHLOROTHIAZIDE PO SCH (08:41)
[2017-01-14] MEDS: CARDIZEM PO SCH ×2 (08:41→20:44)
[2017-01-14] MEDS: LAMICTAL PO SCH ×2 (08:41→20:44)
[2017-01-14] MEDS: VITAMIN D PO SCH (08:41)
[2017-01-14] MEDS: ZYPREXA PO SCH ×2 (08:41→20:44)
[2017-01-14] MEDS: ATIVAN PO SCH ×3 (08:41→20:44)
[2017-01-14] MEDS: SOLU-CORTEF 250 MG IVP SCH ×2 (08:42→20:49)
[2017-01-14] MEDS: ROCEPHIN 1 GM in SODIUM CHLORIDE 50 ML IV SCH (08:42)
[2017-01-14] MEDS ORDERED: ASPIRIN EC PO SCH (09:00)
[2017-01-14] MEDS ORDERED: NON-FORMULARY MEDICATION (Hydrochlorothiazide [Hydrochlorothiazide] 25 MG) PO SCH ×22 (09:00)
[2017-01-14] MEDS ORDERED: ZITHROMAX 500 MG in SODIUM CHLORIDE 250 ML IV SCH (09:00)
[2017-01-14] MEDS ORDERED: SOLU-CORTEF 250 MG IVP STA (14:37)
[2017-01-14] MEDS ORDERED: LASIX IVP STA ×2 (14:38→14:42)
[2017-01-14] MEDS: ZOCOR PO SCH (17:01)
[2017-01-14] MEDS: FLOMAX PO SCH (17:02)
[2017-01-15] MEDS: XOPENEX 1.25 MG NEB SCH ×4 (04:40→23:27)
[2017-01-15] MEDS: PULMICORT 0.5 MG/2 ML NEB SCH ×2 (04:40→17:00)
[2017-01-15 05:25] LABS: BASOPHILS % (AUTO) 0.1 % (0.0-3.0); HEMATOCRIT 37.4 % (42.0-52.0); HEMOGLOBIN 12.3 g/dl (14.0-18.0); IMMATURE GRANULOCYTE % (AUTO) 0.4 % (0.0-5.0); LYMPHOCYTES # (AUTO) 1.5 K/uL (0.60-3.4); LYMPHOCYTES % (AUTO) 18.8 (10.0-50.0); MEAN CORPUSCULAR HEMOGLOBIN 29.6 pg (27.0-31.0); MEAN CORPUSCULAR HGB CONC 32.9 (31.8-35.4); MEAN CORPUSCULAR VOLUME 90.1 fl (80.0-94.0); MONOCYTES # (AUTO) 0.5 K/uL (0.4-2.0); MONOCYTES % (AUTO) 6.2 (0-10); NEUTROPHILS # (AUTO) 5.8 K/ul (2.0-6.9); NEUTROPHILS % (AUTO) 74.5; PLATELET COUNT 155 10^3/uL (140-440); RED BLOOD COUNT 4.15 10^6/ul (4.70-6.10); WHITE BLOOD COUNT 7.78 K/ul (4.2-10.2)
[2017-01-15] MEDS: SYNTHROID PO SCH (05:44)
[2017-01-15] MEDS: PRILOSEC PO SCH (05:44)
[2017-01-15 05:52] LABS: ALBUMIN 3.2 g/dL (3.4-5.0); ALBUMIN/GLOBULIN RATIO 0.91; BILIRUBIN,TOTAL 0.16 mg/dL (0.00-1.20); BUN/CREATININE RATIO 25.51; CALCIUM 9.9 mg/dL (8.2-10.2); CREATININE 0.98 mg/dL (0.60-1.10); TOTAL PROTEIN 6.7 g/dL (5.8-8.1)
[2017-01-15] MEDS: ASPIRIN EC PO SCH (09:16)
[2017-01-15] MEDS: CARAFATE PO SCH ×3 (09:16→20:46)
[2017-01-15] MEDS: VITAMIN D PO SCH (09:16)
[2017-01-15] MEDS: PRIMIDONE 50 MG PO SCH ×3 (09:17→20:45)
[2017-01-15] MEDS: CARDIZEM PO SCH ×2 (09:17→20:46)
[2017-01-15] MEDS: DALIRESP PO SCH (09:18)
[2017-01-15] MEDS: HYDROCHLOROTHIAZIDE PO SCH (09:18)
[2017-01-15] MEDS: ZYPREXA PO SCH ×2 (09:18→20:46)
[2017-01-15] MEDS: LAMICTAL PO SCH ×2 (09:19→20:46)
[2017-01-15] MEDS: ZITHROMAX PO SCH (09:19)
[2017-01-15] MEDS: FERROUS SULFATE PO SCH ×2 (09:19→20:46)
[2017-01-15] MEDS: NEURONTIN PO SCH ×2 (09:19→20:46)
[2017-01-15] MEDS: SOLU-CORTEF 250 MG IVP SCH ×2 (09:20→21:43)
[2017-01-15] MEDS: ATIVAN PO SCH ×3 (09:21→20:46)
[2017-01-15] MEDS: SYMBICORT 160-4.5 MCG INHALER IH SCH ×2 (09:44→20:45)
[2017-01-15] MEDS: ROCEPHIN 1 GM in SODIUM CHLORIDE 50 ML IV SCH (10:00)
[2017-01-15] MEDS: K-DUR PO SCH ×2 (10:01→17:27)
[2017-01-15] MEDS: LEVAQUIN PO SCH (10:01)
--- NOTE | 2017-01-15 13:26 | PN ---
DATE OF SERVICE: 01/14/17 SUBJECTIVE: 71 year old white male hospitalized with acute bronchitis and respiratory failure. The patient's condition has improved remarkably. He feels a lot better and he wants to go home. The coughing is much less. No symptoms of CHF or CAD. PHYSICAL EXAMINATION: GENERAL: The patient is oriented to time, place and person. VITAL SIGNS: Temperature 97, pulse 78, respiratory rate 18, blood pressure 115/ 70 and pulse ox 94%. HEENT: Head normocephalic, atraumatic. Eyes: Extraocular muscles are intact. Pupils are equal, round and reactive to light and accommodation. Ears: No lesions. Nose appeared normal. Throat: No exudate or erythema. NECK: Supple. No JVD, no carotid bruit. No lymphadenopathy or thyromegaly. LUNGS: Decreased breath sounds with mild wheeze. Percussion note normal. Chest symmetrical. HEART: S1, S2, no S3. No murmurs. No cyanosis or clubbing. No ascites. Pulses: Dorsalis pedis and posterior tibial pulses +1 to +2 both sides. ABDOMEN: Soft. Nontender. Bowel sounds active. No CVA tenderness. No mass felt. EXTREMITIES: No edema. Full range of motion of all extremities, equal. NEUROLOGIC: No focal deficit. Cranial nerves II through XII are grossly intact. No headache, no double vision or headache. SKIN: Not dry. Intact. Turgor - normal. LYMPHATIC: No palpable lymph nodes/no lymphedema. MUSCULOSKELETAL: Normal joints with no swelling. Muscle tone is normal. ASSESSMENT: 1. Acute bronchitis 2. Chronic lung disease PLAN: 1. Continue Rocephin, steroids, NEBS treatment 2. Pulmonary rehab advised 3. Advised to lose weight 4. Counseling for smoking done 5. The patient has abdominal obesity otherwise his BMI is not high. 6. Pulmonary rehab discussed but declined. CONDITION: Stable. TIME SPENT: More than 30 minutes. Plan and coordination of the patient's care discussed in the presence of nurse. SUSANNE
--- NOTE | 2017-01-15 14:16 | HP ---
DATE OF SERVICE: 01/13/17 REASON FOR HOSPITALIZATION/HISTORY OF PRESENT ILLNESS: Cough, congestion/Yellow blood tinged sputum. Shortness of breath on minimal exertion x7days. No symptoms of CHF/CAD. Appetite is OK. PAST MEDICAL HISTORY: COPD GERD Hernia Depression Anxiety Hyperlipoproteinemia Dyslipidemia BPH Osteoarthritis PAST SURGICAL HISTORY: Hernia Gallbladder REVIEW OF SYSTEMS: CONSTITUTIONAL: No fever, Fatigue. HEENT: No sinus drainage, no sore throat. RESPIRATORY: Cough, no congestion. CARDIOVASCULAR: No atypical chest pain for coronary artery disease. No angina , CHF symptoms, palpitations. Shortness of breath on minimal exertion. GASTROINTESTINAL: No melena or abdominal pain. No GERD. GENITOURINARY: No hematuria, no prostatism, no polyuria. BENDING PRESS OPERATOR: No blackout, no dizziness, no headache, no double vision. MUSCULOSKELETAL: Osteoarthritis pain, no joint swelling. ENDOCRINE: No weight loss, no weight gain. SKIN: Not dry, no rash. PSYCHIATRIC: Anxious, no depression, no suicidal thoughts, no homicidal thoughts. SOCIAL HISTORY: Marital Status:. Alcohol Usage: No. Tobacco Usage: Quit. FAMILY HISTORY: Father Mother Brother 6 Sister 5 MEDICATIONS: Symbicort 160-4.5mcg two puffs by mouth two times per day Simvastatin 20mg Po daily Omeprazole 20mg PO twice a day Miralax 17gram PO daily Tamsulosin 0.4mg PO half hour following the same meal each day Hydrochlorothiazide 25mg PO daily Gabapentin 300mg PO twice a day Ferrous sulfate 325mg PO twice a day Daliresp 500mg PO daily Levothyroxine 75mcg PO daily Carafate 1gram PO three times a day Diltiazem 60mg PO twice a day Hydrocodone 5-325mg PO two times a day PRN Primidone 50mg PO three times per day Ativan 0.5mg PO three times per day Zyprexa 2.5mg PO daily Aspirin 81mg PO daily Lamictal 25mg PO twice a day Oxygen at night and PRN DUO NEBS 0.5mg three times a day PRN ALLERGIES: Regular Codeine PHYSICAL EXAMINATION: V/S: Pulse 102, blood pressure 140/82, temperature 98.2, pulse ox 88% patient on O2 3 liters nasal cannula GENERAL APPEARANCE: Oriented times three. HEENT: Normal. NECK: No JVP, no bruits. RESPIRATORY: Decreased breath sounds. CARDIOVASCULAR: S1, S2, no S3, no murmurs. No cyanosis, clubbing. No ascites. GI/ABDOMEN: No tenderness. Bowel sounds are active. EXTREMITIES: edema, pulses +1, equal. BENDING PRESS OPERATOR: Deep tendon reflexes, sensory, motor and gait all normal. RECTAL: Patient refused/PROSTATE:10-16 (1.9). LABS: Creatinine 0.8, BUN 12, potassium 3.7, liver profile normal, TSH normal, U/A 1+ protein, CK-MB 15 with normal CK level percentage 4.9, ABG pO 2 85, pCO2 58, pH 7.44 with 96% saturation on 3 liters. Chest x-ray showed emphysema with bibasilar scaring. ASSESSMENT: 1. Acute bronchitis/Respiratory failure 2. COPD 3. Hernia 4. GERD 5. Osteoarthritis 6. Depression 7. Anxiety 8. Dyslipidemia 9. BPH 10.Hyperlipoproteinemia 11.Hernia 12.Infra renal abdominal aneurysm-4cm 13.Hypothyroidism PLAN: 1. Admit 2. Routine Telemetry orders 3. Sputum for culture and sensitivity 4. Blood culture x2 5. NEBS-Xopenex four times a day Q 6 hours. 6. Pulmicort twice a day 7. Rocephin 1 gram IV piggyback now and 24 hours 8. Zithromax 500mg PO daily x3 days 9. Continue all home medications 10.Solu-Cortef 125mg IV now and Q 12 hours 11.Elevate legs 12.Lasix 20mg IV x one dose 13.T4 TSH 14. Daily CBC and CMP AM 15. ABG TIME SPENT: More than 70 minutes. MTDD
[2017-01-15] MEDS: ZOCOR PO SCH (17:27)
[2017-01-15] MEDS: FLOMAX PO SCH (17:27)
[2017-01-16] MEDS: PULMICORT 0.5 MG/2 ML NEB SCH ×2 (05:04→16:55)
[2017-01-16] MEDS: XOPENEX 1.25 MG NEB SCH ×4 (05:04→23:30)
[2017-01-16] MEDS: SYNTHROID PO SCH (05:41)
[2017-01-16] MEDS: LEVAQUIN PO SCH (05:41)
[2017-01-16] MEDS: PRILOSEC PO SCH (05:41)
[2017-01-16 05:49] LABS: BASOPHILS % (AUTO) 0.1 % (0.0-3.0); HEMATOCRIT 37.6 % (42.0-52.0); HEMOGLOBIN 12.2 g/dl (14.0-18.0); IMMATURE GRANULOCYTE % (AUTO) 0.4 % (0.0-5.0); LYMPHOCYTES # (AUTO) 1.1 K/uL (0.60-3.4); LYMPHOCYTES % (AUTO) 11.7 (10.0-50.0); MEAN CORPUSCULAR HGB CONC 32.4 (31.8-35.4); MEAN CORPUSCULAR VOLUME 92.4 fl (80.0-94.0); MONOCYTES # (AUTO) 0.3 K/uL (0.4-2.0); MONOCYTES % (AUTO) 3.4 (0-10); NEUTROPHILS # (AUTO) 7.9 K/ul (2.0-6.9); NEUTROPHILS % (AUTO) 84.4; PLATELET COUNT 179 10^3/uL (140-440); RED BLOOD COUNT 4.07 10^6/ul (4.70-6.10); WHITE BLOOD COUNT 9.31 K/ul (4.2-10.2)
[2017-01-16 06:28] LABS: ALBUMIN 3.1 g/dL (3.4-5.0); ALBUMIN/GLOBULIN RATIO 0.91; ANION GAP 18.4; BILIRUBIN,TOTAL 0.17 mg/dL (0.00-1.20); BUN/CREATININE RATIO 28.08; CALCIUM 9.6 mg/dL (8.2-10.2); CREATININE 0.89 mg/dL (0.60-1.10); POTASSIUM 3.4 mmol/L (3.5-5.1); TOTAL PROTEIN 6.5 g/dL (5.8-8.1)
[2017-01-16] MEDS: LAMICTAL PO SCH ×2 (08:34→20:02)
[2017-01-16] MEDS: HYDROCHLOROTHIAZIDE PO SCH (08:34)
[2017-01-16] MEDS: VITAMIN D PO SCH (08:34)
[2017-01-16] MEDS: ZYPREXA PO SCH ×2 (08:34→20:02)
[2017-01-16] MEDS: PRIMIDONE 50 MG PO SCH ×3 (08:34→20:02)
[2017-01-16] MEDS: CARAFATE PO SCH ×3 (08:34→20:01)
[2017-01-16] MEDS: FERROUS SULFATE PO SCH ×2 (08:35→20:02)
[2017-01-16] MEDS: ASPIRIN EC PO SCH (08:35)
[2017-01-16] MEDS: NEURONTIN PO SCH ×2 (08:35→20:01)
[2017-01-16] MEDS: K-DUR PO SCH ×2 (08:35→16:52)
[2017-01-16] MEDS: DALIRESP PO SCH (08:35)
[2017-01-16] MEDS: ATIVAN PO SCH ×3 (08:35→20:01)
[2017-01-16] MEDS: CARDIZEM PO SCH ×2 (08:35→20:01)
[2017-01-16] MEDS: SYMBICORT 160-4.5 MCG INHALER IH SCH ×2 (08:36→20:02)
[2017-01-16] MEDS: SOLU-CORTEF 250 MG IVP SCH ×2 (09:16→20:02)
[2017-01-16] MEDS: FLOMAX PO SCH (16:51)
[2017-01-16] MEDS: ZOCOR PO SCH (16:51)
[2017-01-17 04:57] LABS: BASOPHILS % (AUTO) 0.2 % (0.0-3.0); EOSINOPHILS % (AUTO) 0.1 % (0.0-7.0); HEMATOCRIT 38.4 % (42.0-52.0); HEMOGLOBIN 12.4 g/dl (14.0-18.0); IMMATURE GRANULOCYTE % (AUTO) 0.4 % (0.0-5.0); LYMPHOCYTES # (AUTO) 1.4 K/uL (0.60-3.4); LYMPHOCYTES % (AUTO) 16.6 (10.0-50.0); MEAN CORPUSCULAR HGB CONC 32.3 (31.8-35.4); MONOCYTES # (AUTO) 0.5 K/uL (0.4-2.0); MONOCYTES % (AUTO) 5.5 (0-10); NEUTROPHILS # (AUTO) 6.3 K/ul (2.0-6.9); NEUTROPHILS % (AUTO) 77.2; PLATELET COUNT 167 10^3/uL (140-440); RED BLOOD COUNT 4.13 10^6/ul (4.70-6.10); WHITE BLOOD COUNT 8.21 K/ul (4.2-10.2)
[2017-01-17 05:17] LABS: ALBUMIN 3.1 g/dL (3.4-5.0); ALBUMIN/GLOBULIN RATIO 0.91; ANION GAP 14.6; BILIRUBIN,TOTAL 0.23 mg/dL (0.00-1.20); BUN/CREATININE RATIO 24.69; CALCIUM 9.6 mg/dL (8.2-10.2); CREATININE 0.81 mg/dL (0.60-1.10); POTASSIUM 3.6 mmol/L (3.5-5.1); TOTAL PROTEIN 6.5 g/dL (5.8-8.1)
[2017-01-17] MEDS: XOPENEX 1.25 MG NEB SCH ×4 (05:25→23:41)
[2017-01-17] MEDS: PULMICORT 0.5 MG/2 ML NEB SCH ×2 (05:25→16:40)
[2017-01-17] MEDS: SYNTHROID PO SCH (05:42)
[2017-01-17] MEDS: PRILOSEC PO SCH (05:42)
[2017-01-17] MEDS: LEVAQUIN PO SCH (05:42)
[2017-01-17] MEDS: VITAMIN D PO SCH (08:02)
[2017-01-17] MEDS: ZYPREXA PO SCH ×2 (08:02→20:10)
[2017-01-17] MEDS: FERROUS SULFATE PO SCH ×2 (08:02→20:10)
[2017-01-17] MEDS: CARAFATE PO SCH ×3 (08:02→20:10)
[2017-01-17] MEDS: SYMBICORT 160-4.5 MCG INHALER IH SCH ×2 (08:02→20:11)
[2017-01-17] MEDS: PRIMIDONE 50 MG PO SCH ×3 (08:02→20:09)
[2017-01-17] MEDS: ASPIRIN EC PO SCH (08:03)
[2017-01-17] MEDS: K-DUR PO SCH ×2 (08:03→16:39)
[2017-01-17] MEDS: CARDIZEM PO SCH ×2 (08:03→20:10)
[2017-01-17] MEDS: ATIVAN PO SCH ×3 (08:03→20:10)
[2017-01-17] MEDS: HYDROCHLOROTHIAZIDE PO SCH (08:04)
[2017-01-17] MEDS: DALIRESP PO SCH (08:04)
[2017-01-17] MEDS: NEURONTIN PO SCH ×2 (08:04→20:10)
[2017-01-17] MEDS: LAMICTAL PO SCH ×2 (08:04→20:09)
[2017-01-17] MEDS: SOLU-CORTEF 250 MG IVP SCH ×2 (08:57→20:09)
[2017-01-17] MEDS: FLOMAX PO SCH (16:39)
[2017-01-17] MEDS: ZOCOR PO SCH (16:39)
[2017-01-18 04:51] LABS: BASOPHILS % (AUTO) 0.1 % (0.0-3.0); HEMATOCRIT 37.9 % (42.0-52.0); HEMOGLOBIN 12.1 g/dl (14.0-18.0); IMMATURE GRANULOCYTE % (AUTO) 0.8 % (0.0-5.0); LYMPHOCYTES # (AUTO) 1.2 K/uL (0.60-3.4); LYMPHOCYTES % (AUTO) 16.1 (10.0-50.0); MEAN CORPUSCULAR HEMOGLOBIN 29.9 pg (27.0-31.0); MEAN CORPUSCULAR HGB CONC 31.9 (31.8-35.4); MEAN CORPUSCULAR VOLUME 93.6 fl (80.0-94.0); MONOCYTES # (AUTO) 0.4 K/uL (0.4-2.0); MONOCYTES % (AUTO) 6.2 (0-10); NEUTROPHILS # (AUTO) 5.5 K/ul (2.0-6.9); NEUTROPHILS % (AUTO) 76.8; PLATELET COUNT 169 10^3/uL (140-440); RED BLOOD COUNT 4.05 10^6/ul (4.70-6.10); WHITE BLOOD COUNT 7.13 K/ul (4.2-10.2)
[2017-01-18 05:11] LABS: ALBUMIN/GLOBULIN RATIO 0.94; ANION GAP 11.7; BILIRUBIN,TOTAL 0.18 mg/dL (0.00-1.20); BUN/CREATININE RATIO 23.45; CALCIUM 9.2 mg/dL (8.2-10.2); CREATININE 0.81 mg/dL (0.60-1.10); POTASSIUM 3.7 mmol/L (3.5-5.1); TOTAL PROTEIN 6.2 g/dL (5.8-8.1)
[2017-01-18] MEDS: PULMICORT 0.5 MG/2 ML NEB SCH ×2 (05:26→17:09)
[2017-01-18] MEDS: XOPENEX 1.25 MG NEB SCH ×4 (05:26→23:24)
[2017-01-18] MEDS: SYNTHROID PO SCH (05:41)
[2017-01-18] MEDS: PRILOSEC PO SCH (05:41)
[2017-01-18] MEDS: LEVAQUIN PO SCH (05:41)
[2017-01-18] MEDS: ASPIRIN EC PO SCH (09:49)
[2017-01-18] MEDS: CARAFATE PO SCH ×3 (09:49→21:26)
[2017-01-18] MEDS: LAMICTAL PO SCH ×2 (09:50→21:26)
[2017-01-18] MEDS: DALIRESP PO SCH (09:50)
[2017-01-18] MEDS: CARDIZEM PO SCH ×2 (09:50→21:26)
[2017-01-18] MEDS: HYDROCHLOROTHIAZIDE PO SCH (09:50)
[2017-01-18] MEDS: FERROUS SULFATE PO SCH ×2 (09:50→21:26)
[2017-01-18] MEDS: K-DUR PO SCH ×2 (09:50→17:35)
[2017-01-18] MEDS: NEURONTIN PO SCH ×2 (09:51→21:26)
[2017-01-18] MEDS: SYMBICORT 160-4.5 MCG INHALER IH SCH ×2 (09:51→21:26)
[2017-01-18] MEDS: ZYPREXA PO SCH ×2 (09:51→21:26)
[2017-01-18] MEDS: PRIMIDONE 50 MG PO SCH ×3 (09:51→21:27)
[2017-01-18] MEDS: VITAMIN D PO SCH (09:51)
[2017-01-18] MEDS: ATIVAN PO SCH ×3 (09:56→21:26)
[2017-01-18] MEDS: SOLU-CORTEF 250 MG IVP SCH (09:59)
[2017-01-18] MEDS ORDERED: PREDNISONE PO SCH (10:00)
--- NOTE | 2017-01-18 11:04 | PCM.PROG ---
Attending Provider: ATTENDING PROVIDER: Dr. MARLENY WELLER This patient is seen with Amber Guadalupe, Nurse Practitioner. DATE OF SERVICE: 01/18/17 SUBJECTIVE: This 71 year old WHITE/ M was hospitalized 01/13/17. The patient is lying in bed, alert. He states he has been up to bathroom. He is eating well. He is still severely short of breath with much exertion and has dizziness. REVIEW OF SYSTEMS: CONSTITUTIONAL: No night sweats. No fatigue, malaise, lethargy. No fever or chills. HEENT: Eyes: No visual changes. No eye pain. No eye discharge. ENT: No runny nose. No epistaxis. No sinus pain. No odynophagia. No congestion. RESPIRATORY: Cough. No congestion. No hemoptysis. Shortness of breath with much exertion. CARDIOVASCULAR: No angina symptoms. No CHF symptoms. No atypical chest pain for CAD. No palpitations. No orthopnea.. GASTROINTESTINAL: No abdominal pain. No nausea or vomiting. No diarrhea or constipation. No hematemesis. No hematochezia. GENITOURINARY: No urgency. No frequency. No dysuria. No hematuria. No obstructive symptoms. No discharge. No pain. No significant abnormal bleeding. MUSCULOSKELETAL: No musculoskeletal pain; no joint swelling. NEUROLOGICAL: Awake, alert, oriented to time, place and person. Dizziness. No headache. No neck pain. No syncope. No seizures. PSYCHIATRIC: Not anxious. No depression. No suicidal thoughts. No homicidal thoughts. SKIN: No rash. No lesions. No wounds. ENDOCRINE: No unexplained weight loss. No weight gain. HEMATOLOGIC/LYMPHATIC: No anemia. No purpura. No petechiae. No prolonged or excessive bleeding. No palpable lymph nodes. PHYSICAL EXAMINATION: GENERAL: The patient is awake, alert and oriented, lying in bed in no distress. VITAL SIGNS: Temperature 97.9 F, Pulse 79, Respiratory Rate 15, BP 114/66, Pulse Ox 93% HEENT: Head normocephalic, atraumatic. Eyes: Extraocular muscles are intact. Pupils are equal, round and reactive to light and accommodation. Ears: No lesions. Nose appeared normal. Throat: No exudate or erythema. NECK: Supple. No JVD, no carotid bruit. No lymphadenopathy or thyromegaly. LUNGS: Severely diminished breath sounds bilaterally with expiratory wheeze. Percussion note normal. Chest symmetrical. HEART: S1, S2, no S3. No murmurs. No cyanosis or clubbing. No ascites. Pulses: Dorsalis pedis and posterior tibial pulses +1 to +2 both sides. ABDOMEN: Soft. Non-tender. Bowel sounds active. No CVA tenderness. No mass felt. EXTREMITIES: No edema. Full range of motion of all extremities, equal. NEUROLOGIC: No focal deficit. Cranial nerves II through XII are grossly intact. No headache, no double vision or headache. SKIN: Not dry. Intact. Turgor-normal. LYMPHATIC: No palpable lymph nodes/no lymphedema. MUSCULOSKELETAL: Normal joints with no swelling. Muscle tone is normal. LAB REVIEW: 01/18/17 04:47 01/18/17 04:47 01/18/17 04:47: Sodium 141, Potassium 3.7, Chloride 97 L, Carbon Dioxide 36 H, Anion Gap 11.7, BUN 19 H, Creatinine 0.81, Estimated GFR (MDRD) 94.00, BUN/ Creatinine Ratio 23.45, Glucose 153 H, Calcium 9.2, Total Bilirubin 0.18, AST 12 L, ALT 11 L, Alkaline Phosphatase 45 L, Total Protein 6.2, Albumin 3.0 L, Globulin 3.2, Albumin/Globulin Ratio 0.94 01/18/17 04:47: WBC 7.13, RBC 4.05 L, Hgb 12.1 L, Hct 37.9 L, MCV 93.6, MCH 29.9 , MCHC 31.9, RDW Coeff of Evan 18.6 H, Plt Count 169, Immature Gran % (Auto) 0.8 , Neut % (Auto) 76.8, Lymph % (Auto) 16.1, [place] % (Auto) 6.2, Eos % (Auto) 0.0, Baso % (Auto) 0.1, Immature Gran # (Auto) 0.1, Neut # 5.5, Lymph # 1.2, Brown # 0.4, Eos # 0.0, Baso # 0.0 ASSESSMENT: 1. Acute bronchitis/Respiratory failure 2. COPD 3. Hernia 4. GERD 5. Osteoarthritis 6. Depression 7. Anxiety 8. Dyslipidemia 9. BPH 10.Hyperlipoproteinemia 11.Hernia 12.Infrarenal abdominal aneurysm-4cm 13.Hypothyroidism PLAN: 1. D/C IV steroids 2. Will start Prednisone 20 mg b.i.d. 3. Encourage patient to be up and about walking 4. Anticipate discharge home tomorrow Plan and coordination of the patient's care discussed in the presence of Radiographer Technologist and nurse. CONDITION: Stable SCRIBED BY: SANDY CASANOVA Filtering Machine Tender Helper scribed while in presence of service performed by Dr. Weller/Amber Guadalupe APRN on 01/18/17 ([id number])
[2017-01-18] MEDS: PREDNISONE PO SCH ×2 (12:04→17:34)
[2017-01-18] MEDS: FLOMAX PO SCH (17:34)
[2017-01-18] MEDS: ZOCOR PO SCH (17:35)
[2017-01-19] MEDS: XOPENEX 1.25 MG NEB SCH ×2 (05:18→11:13)
[2017-01-19] MEDS: PULMICORT 0.5 MG/2 ML NEB SCH (05:18)
[2017-01-19 05:25] LABS: BASOPHILS % (AUTO) 0.1 % (0.0-3.0); EOSINOPHILS % (AUTO) 0.1 % (0.0-7.0); HEMATOCRIT 38.2 % (42.0-52.0); HEMOGLOBIN 12.3 g/dl (14.0-18.0); IMMATURE GRANULOCYTE % (AUTO) 0.6 % (0.0-5.0); LYMPHOCYTES # (AUTO) 0.7 K/uL (0.60-3.4); MEAN CORPUSCULAR HEMOGLOBIN 30.3 pg (27.0-31.0); MEAN CORPUSCULAR HGB CONC 32.2 (31.8-35.4); MEAN CORPUSCULAR VOLUME 94.1 fl (80.0-94.0); MONOCYTES # (AUTO) 0.3 K/uL (0.4-2.0); MONOCYTES % (AUTO) 3.7 (0-10); NEUTROPHILS % (AUTO) 85.5; PLATELET COUNT 191 10^3/uL (140-440); RED BLOOD COUNT 4.06 10^6/ul (4.70-6.10); WHITE BLOOD COUNT 6.99 K/ul (4.2-10.2)
[2017-01-19] MEDS: PRILOSEC PO SCH (05:38)
[2017-01-19] MEDS: SYNTHROID PO SCH (05:38)
[2017-01-19] MEDS: LEVAQUIN PO SCH (05:38)
[2017-01-19 05:58] LABS: ALBUMIN 3.1 g/dL (3.4-5.0); BILIRUBIN,TOTAL 0.23 mg/dL (0.00-1.20); BUN/CREATININE RATIO 23.75; CALCIUM 9.4 mg/dL (8.2-10.2); CREATININE 0.8 mg/dL (0.60-1.10); TOTAL PROTEIN 6.2 g/dL (5.8-8.1)
[2017-01-19] MEDS: SYMBICORT 160-4.5 MCG INHALER IH SCH (08:55)
[2017-01-19] MEDS: ATIVAN PO SCH (08:56)
[2017-01-19] MEDS: CARAFATE PO SCH (08:56)
[2017-01-19] MEDS: PRIMIDONE 50 MG PO SCH (08:56)
[2017-01-19] MEDS: LAMICTAL PO SCH (08:56)
[2017-01-19] MEDS: HYDROCHLOROTHIAZIDE PO SCH (08:56)
[2017-01-19] MEDS: VITAMIN D PO SCH (08:56)
[2017-01-19] MEDS: CARDIZEM PO SCH (08:57)
[2017-01-19] MEDS: FERROUS SULFATE PO SCH (08:57)
[2017-01-19] MEDS: K-DUR PO SCH (08:57)
[2017-01-19] MEDS: ASPIRIN EC PO SCH (08:57)
[2017-01-19] MEDS: NEURONTIN PO SCH (08:57)
[2017-01-19] MEDS: PREDNISONE PO SCH (08:57)
[2017-01-19] MEDS: DALIRESP PO SCH (08:57)
[2017-01-19] MEDS: ZYPREXA PO SCH (08:57)
--- NOTE | 2017-01-19 10:06 | PCM.PROG ---
Attending Provider: ATTENDING PROVIDER: Dr. MARLENY WELLER This patient is seen with Amber Guadalupe, Nurse Practitioner. DATE OF SERVICE: 01/19/17 SUBJECTIVE: This 71 year old WHITE/ M was hospitalized 01/13/17. The patient is alert, lying in bed. He states he is ready to go home. Cough and shortness of breath has improved. REVIEW OF SYSTEMS: CONSTITUTIONAL: Weakness. No night sweats. No fever or chills. HEENT: Eyes: No visual changes. No eye pain. No eye discharge. ENT: No runny nose. No epistaxis. No sinus pain. No odynophagia. No congestion. RESPIRATORY: Cough. No congestion. No hemoptysis. Shortness of breath. CARDIOVASCULAR: No angina symptoms. No CHF symptoms. No atypical chest pain for CAD. No palpitations. No orthopnea.. GASTROINTESTINAL: No abdominal pain. No nausea or vomiting. No diarrhea or constipation. No hematemesis. No hematochezia. GENITOURINARY: No urgency. No frequency. No dysuria. No hematuria. No obstructive symptoms. No discharge. No pain. No significant abnormal bleeding. MUSCULOSKELETAL: No musculoskeletal pain; no joint swelling. NEUROLOGICAL: Awake, alert, oriented to time, place and person. No headache. No neck pain. No syncope. No seizures. No dizziness. PSYCHIATRIC: Not anxious. No depression. No suicidal thoughts. No homicidal thoughts. SKIN: No rash. No lesions. No wounds. ENDOCRINE: No unexplained weight loss. No weight gain. HEMATOLOGIC/LYMPHATIC: No anemia. No purpura. No petechiae. No prolonged or excessive bleeding. No palpable lymph nodes. PHYSICAL EXAMINATION: GENERAL: The patient is awake, alert and oriented, lying in bed in no distress. VITAL SIGNS: Temperature 98.0 F, Pulse 66, Respiratory Rate 24, BP 121/69, Pulse Ox 92% HEENT: Head normocephalic, atraumatic. Eyes: Extraocular muscles are intact. Pupils are equal, round and reactive to light and accommodation. Ears: No lesions. Nose appeared normal. Throat: No exudate or erythema. NECK: Supple. No JVD, no carotid bruit. No lymphadenopathy or thyromegaly. LUNGS: Bilateral rhonchi improved. Diminished breath sounds bilaterally. Percussion note normal. Chest symmetrical. HEART: S1, S2, no S3. No murmurs. No cyanosis or clubbing. No ascites. Pulses: Dorsalis pedis and posterior tibial pulses +1 to +2 both sides. ABDOMEN: Soft. Non-tender. Bowel sounds active. No CVA tenderness. No mass felt. EXTREMITIES: No edema. Full range of motion of all extremities, equal. NEUROLOGIC: No focal deficit. Cranial nerves II through XII are grossly intact. No headache, no double vision or headache. SKIN: Not dry. Intact. Turgor-normal. LYMPHATIC: No palpable lymph nodes/no lymphedema. MUSCULOSKELETAL: Normal joints with no swelling. Muscle tone is normal. LAB REVIEW: 01/19/17 05:22 01/19/17 05:22 01/19/17 05:22: Sodium 139, Potassium 4.0, Chloride 96 L, Carbon Dioxide 37 H, Anion Gap 10.0, BUN 19 H, Creatinine 0.80, Estimated GFR (MDRD) 95.00, BUN/ Creatinine Ratio 23.75, Glucose 149 H, Calcium 9.4, Total Bilirubin 0.23, AST 12 L, ALT 11 L, Alkaline Phosphatase 47 L, Total Protein 6.2, Albumin 3.1 L, Globulin 3.1, Albumin/Globulin Ratio 1.00 01/19/17 05:22: WBC 6.99, RBC 4.06 L, Hgb 12.3 L, Hct 38.2 L, MCV 94.1 H, MCH 30.3, MCHC 32.2, RDW Coeff of Evan 18.6 H, Plt Count 191, Immature Gran % (Auto) 0.6, Neut % (Auto) 85.5, Lymph % (Auto) 10.0, [place] % (Auto) 3.7, Eos % (Auto) 0.1, Baso % (Auto) 0.1, Immature Gran # (Auto) 0.0, Neut # 6.0, Lymph # 0.7, [place] # 0.3 L, Eos # 0.0, Baso # 0.0 ASSESSMENT: 1. Acute bronchitis 2. Respiratory failure, resolved 3. COPD, severe oxygen dependent 4. Hernia 5. GERD 6. Osteoarthritis 7. Depression 8. Anxiety 9. Dyslipidemia 10. BPH 11. Hyperlipoproteinemia 12. Hernia 13. Infrarenal abdominal aneurysm-4cm 14. Hypothyroidism PLAN: 1. D/C home today 2. Continue for 3 more days Levaquin 500 mg 3. Prednisone 20 mg b.i.d. for two more days and 10 b.i.d. for 5 days 4. Advised to use neb machine three times a day for a few days 5. Brother will be staying with him 6. Followup in office next week Plan and coordination of the patient's care discussed in the presence of Health Information Specialist and nurse. CONDITION: Stable SCRIBED BY: SANDY CASANOVA Bankruptcy Legal Assistant scribed while in presence of service performed by Dr. Weller/Amber Guadalupe APRN on 01/19/17 ([id number])
[2017-01-19 12:04] VITALS: BP 121/68; TEMP 97.8
--- NOTE | 2017-01-19 12:12 | CM.DICTOOL ---
ADMISSION: 01/13/17 11:50 DISCHARGE: January 19, 2017 DATE OF SERVICE: 01/19/17 FINAL DIAGNOSIS Acute Bronchitis Respiratory Failure COPD, oxygen dependent Dyslipidemia Hypothyroid GERD Anxiety Depression BPH Hypolipoproteinemia Osteoarthritis Infrarenal Abdominal Aneurysm, 4 cm LAST VITALS Temp Pulse Resp BP Pulse Ox 98.0 F 66 24 121/69 92 L 01/19/17 05:28 01/19/17 05:28 01/19/17 05:28 01/19/17 05:28 01/19/17 05:28 ACTIVE HOME MEDICATIONS Acetaminophen/Hydrocodone Bitart ([place] 5-325) 1 tab PO BID PRN PRN Reason: pain Last Admin: 01/17/17 12:46 Dose: 1 tab Aspirin (Aspirin Ec) 81 mg PO DAILYWM [facility] Last Admin: 01/19/17 08:57 Dose: 81 mg Budesonide/Formoterol Fumarate (Symbicort 160-4.5 Mcg Inhaler) 2 puff IH BID [facility] Last Admin: 01/19/17 08:55 Dose: 2 puff Cholecalciferol (Vitamin D) 1,000 unit PO DAILY [facility] Last Admin: 01/19/17 08:56 Dose: 1,000 unit Diltiazem HCl (Cardizem) 60 mg PO Q12HR [facility] Last Admin: 01/19/17 08:57 Dose: 60 mg Ferrous Sulfate (Ferrous Sulfate) 324 mg PO BID [facility] Last Admin: 01/19/17 08:57 Dose: 324 mg Gabapentin (Neurontin) 300 mg PO BID [facility] Last Admin: 01/19/17 08:57 Dose: 300 mg Hydrochlorothiazide (Hydrochlorothiazide) 25 mg PO DAILY [facility] Last Admin: 01/19/17 08:56 Dose: 25 mg Lamotrigine (Lamictal) 25 mg PO BID [facility] Last Admin: 01/19/17 08:56 Dose: 25 mg Ipratropium/Albuterol Neb (Duoneb) 1 vial IH BID Last Admin: Levothyroxine Sodium (Synthroid) 75 mcg PO QDAC [facility] Last Admin: 01/19/17 05:38 Dose: 75 mcg Lorazepam (Ativan) 0.5 mg PO TID [facility] Last Admin: 01/19/17 08:56 Dose: 0.5 mg Non-Formulary Medication (Primidone [Primidone]) 50 mg PO TID [facility] Last Admin: 01/19/17 08:56 Dose: 50 mg Olanzapine (Zyprexa) 2.5 mg PO BID [facility] Last Admin: 01/19/17 08:57 Dose: 2.5 mg Omeprazole (Prilosec) 20 mg PO QDAC [facility] Last Admin: 01/19/17 05:38 Dose: 20 mg Polyethylene Glycol (Miralax) 17 gm PO DAILY PRN PRN Reason: Constipation Roflumilast (Daliresp) 500 mcg PO DAILY [facility] Last Admin: 01/19/17 08:57 Dose: 500 mcg Simvastatin (Zocor) 20 mg PO 1700 [facility] Last Admin: 01/18/17 17:35 Dose: 20 mg Sucralfate (Carafate) 1 gm PO TID [facility] Last Admin: 01/19/17 08:56 Dose: 1 gm Tamsulosin HCl (Flomax) 0.4 mg PO 1700 [facility] Last Admin: 01/18/17 17:34 Dose: 0.4 mg ALLERGIES codeine Adverse Reaction (Verified 07/29/16 12:33) metoclopramide HCl [From [facility]] Adverse Reaction (Verified 07/29/16 12:33) NEW PRESCRIPTIONS: Prednisone 20 mg BID for 2 days, then 10 mg BID for 5 days Levaquin 500 mg daily for 3 days SMOKING: No Smoking (has stopped) DISEASE SPECIFIC EDUCATION: Medications Continuation of nebulizer treatments at least 3 times daily Prescriptions Appointment Use of steroids with side effects of bone demineralization, GI upset discussed LAB REVIEW: 01/19/17 05:22 01/19/17 05:22 01/19/17 05:22: Sodium 139, Potassium 4.0, Chloride 96 L, Carbon Dioxide 37 H, Anion Gap 10.0, BUN 19 H, Creatinine 0.80, Estimated GFR (MDRD) 95.00, BUN/ Creatinine Ratio 23.75, Glucose 149 H, Calcium 9.4, Total Bilirubin 0.23, AST 12 L, ALT 11 L, Alkaline Phosphatase 47 L, Total Protein 6.2, Albumin 3.1 L, Globulin 3.1, Albumin/Globulin Ratio 1.00 01/19/17 05:22: WBC 6.99, RBC 4.06 L, Hgb 12.3 L, Hct 38.2 L, MCV 94.1 H, MCH 30.3, MCHC 32.2, RDW Coeff of Evan 18.6 H, Plt Count 191, Immature Gran % (Auto) 0.6, Neut % (Auto) 85.5, Lymph % (Auto) 10.0, Davidson % (Auto) 3.7, Eos % (Auto) 0.1, Baso % (Auto) 0.1, Immature Gran # (Auto) 0.0, Neut # 6.0, Lymph # 0.7, Davidson # 0.3 L, Eos # 0.0, Baso # 0.0 PLAN: Discharge home Diet: Regular Activity: Gradually resume as tolerated Continue use of home oxygen at 3 liters per nasal cannula Continue use of nebulizer treatments at least 3 times daily An appointment is scheduled with Dr. Ceja on January 26 at 11 am Continue medications as listed on nursing discharge information sheet Mr. Romero is alert and oriented x 3. He is independent with feeding and toileting. He transfers from the bed to the chair with stand by assistance of 1 staff member. He is ambulatory in the room with stand by asssistance of nursing without use of assistive device. He requires continuous oxygen at 3 liters per nasal cannula. He has a nebulizer in the home for duoneb treatments. Meal intakes are good at 50-100%. Skin is intact and free of decubitus ulcers or irritation. Antoni Ceja MD Amber Guadalupe APRN
--- NOTE | 2017-01-19 15:27 | PN ---
DATE OF SERVICE: 01/15/17 SUBJECTIVE: 71 year old white male hospitalized with acute bronchitis and respiratory failure. The patient's condition has steadily improved. Yesterday the patient went into respiratory distress with oxygen saturation of 74%. At that time the respiratory therapist noticed that the patient had a mucus plug. So far his treatment was given IV Lasix and IV Solu-Cortef so his oxygen was unhooked. He was put back on oxygen and his condition improved within an hour and a half and he was breathing normally but his sputum production has increased ever since that likely from secretions. This morning he is somewhat congested but he is bringing the sputum up without any problem. REVIEW OF SYSTEMS: CONSTITUTIONAL: No night sweats. No fatigue, malaise, lethargy. No fever or chills. HEENT: Eyes: No visual changes. No eye pain. No eye discharge. ENT: No runny nose. No epistaxis. No sinus pain. No sore throat. No odynophagia. No congestion. RESPIRATORY: No cough, no congestion. No hemoptysis. No shortness of breath. CARDIOVASCULAR: No angina symptoms. No CHF symptoms. No atypical chest pain for CAD. No palpitations. No orthopnea. No PND. GASTROINTESTINAL: No abdominal pain. No nausea or vomiting. No diarrhea or constipation. No hematemesis. No hematochezia. GENITOURINARY: No urgency. No frequency. No dysuria. No hematuria. No obstructive symptoms. No discharge. No pain. No significant abnormal bleeding. MUSCULOSKELETAL: No musculoskeletal pain; no joint swelling. NEUROLOGICAL: No headache. No neck pain. No syncope. No seizures. No dizziness. PSYCHIATRIC: Not anxious. No depression. No suicidal thoughts. No homicidal thoughts. SKIN: No rash. No lesions. No wounds. ENDOCRINE: No unexplained weight loss. No weight gain. HEMATOLOGIC/LYMPHATIC: No anemia. No purpura. No petechiae. No prolonged or excessive bleeding. No palpable lymph nodes. PHYSICAL EXAMINATION: GENERAL: The patient is oriented to time, place and person. VITAL SIGNS: Temperature 98, pulse 66, respiratory rate 18, blood pressure 110/ 60 and pulse ox 98% with 2 liters. HEENT: Head normocephalic, atraumatic. Eyes: Extraocular muscles are intact. Pupils are equal, round and reactive to light and accommodation. Ears: No lesions. Nose appeared normal. Throat: No exudate or erythema. NECK: Supple. No JVD, no carotid bruit. No lymphadenopathy or thyromegaly. LUNGS:Decreased breath sounds but clear with mild wheeze. Percussion note normal. Chest symmetrical. HEART: S1, S2, no S3. No murmurs. No cyanosis or clubbing. No ascites. Pulses: Dorsalis pedis and posterior tibial pulses +1 to +2 both sides. ABDOMEN: Soft. Nontender. Bowel sounds active. No CVA tenderness. No mass felt. EXTREMITIES: No edema. Full range of motion of all extremities, equal. NEUROLOGIC: No focal deficit. Cranial nerves II through XII are grossly intact. No headache, no double vision or headache. SKIN: Not dry. Intact. Turgor - normal. LYMPHATIC: No palpable lymph nodes/no lymphedema. MUSCULOSKELETAL: Normal joints with no swelling. Muscle tone is normal. LABS: hgb 12.3, hct 37, WBC 7,700 normal differential, creatinine 0.9, BUN 25, potassium 3 ASSESSMENT: 1. Acute bronchitis 2. Severe chronic lung disease 3. Coronary bypass surgery 4. Hypokalemia 5. Hypertension PLAN: 1. Given potassium supplement 2. Continue Solu-Medrol 3. Continue antibiotics 4. Continue Xopenex treatment 5. The patient wants DNR 6. The patient strongly advised to be up and about and this nursing staff also explained about this. CONDITION: Stable TIME SPENT: More than 30 minutes. Plan and coordination of the patient's care discussed in the presence of nurse. SUSANNE
[2017-01-20 10:36] LABS: AEROBIC + ANAEROB SUSC Final report (.)
--- NOTE | 2017-01-20 13:19 | PN ---
DATE OF SERVICE: 01/19/17 SUBJECTIVE: The patient was seen and examined with Nurse Practitioner. The patient is doing much better and up and about. REVIEW OF SYSTEMS: CONSTITUTIONAL: No night sweats. No fatigue, malaise, lethargy. No fever or chills. HEENT: Eyes: No visual changes. No eye pain. No eye discharge. ENT: No runny nose. No epistaxis. No sinus pain. No sore throat. No odynophagia. No congestion. RESPIRATORY: Cough much less, no congestion. No hemoptysis. No shortness of breath. CARDIOVASCULAR: No angina symptoms. No CHF symptoms. No atypical chest pain for CAD. No palpitations. No orthopnea. GASTROINTESTINAL: No abdominal pain. No nausea or vomiting. No diarrhea or constipation. No hematemesis. No hematochezia. Appetite is better. GENITOURINARY: No urgency. No frequency. No dysuria. No hematuria. No obstructive symptoms. No discharge. No pain. No significant abnormal bleeding. MUSCULOSKELETAL: No musculoskeletal pain; no joint swelling. NEUROLOGICAL: No headache. No neck pain. No syncope. No seizures. No dizziness. PSYCHIATRIC: Not anxious. No depression. No suicidal thoughts. No homicidal thoughts. SKIN: No rash. No lesions. No wounds. ENDOCRINE: No unexplained weight loss. No weight gain. HEMATOLOGIC/LYMPHATIC: No anemia. No purpura. No petechiae. No prolonged or excessive bleeding. No palpable lymph nodes. PHYSICAL EXAMINATION: HEENT: Head normocephalic, atraumatic. Eyes: Extraocular muscles are intact. Pupils are equal, round and reactive to light and accommodation. Ears: No lesions. Nose appeared normal. Throat: No exudate or erythema. NECK: Supple. No JVD, no carotid bruit. No lymphadenopathy or thyromegaly. LUNGS: Decreased breath sounds but clear to auscultation. Percussion note normal. Chest symmetrical. HEART: S1, S2, no S3. No murmurs. No cyanosis or clubbing. No ascites. Pulses: Dorsalis pedis and posterior tibial pulses +1 to +2 both sides. ABDOMEN: Soft. Nontender. Bowel sounds active. No CVA tenderness. No mass felt. EXTREMITIES: No edema. Full range of motion of all extremities, equal. NEUROLOGIC: No focal deficit. Cranial nerves II through XII are grossly intact. No headache, no double vision or headache. SKIN: Not dry. Intact. Turgor - normal. LYMPHATIC: No palpable lymph nodes/no lymphedema. MUSCULOSKELETAL: Normal joints with no swelling. Muscle tone is normal. PLAN: 1. Discharge the patient home steroids, antibiotics 2. Side effects of steroids discussed with the patient. CONDITION: Stable TIME SPENT: More than 30 minutes. Plan and coordination of the patient's care discussed in the presence of nurse. SUSANNE
--- NOTE | 2017-01-20 13:21 | PN ---
01/13/17: Level 5 01/14/17: Intermediate 01/15/17: Intermediate 01/16/17: Intermediate 01/17/07: Intermediate 01/18/17: Intermediate 01/19/17: D as in discharge, Extensive MTDD
--- NOTE | 2017-01-27 13:38 | PN ---
DATE OF SERVICE: 01/19/17 SUBJECTIVE: 71 year old white male hospitalized with acute respiratory failure, acute bronchitis. The patient's condition has improved remarkably and the patient is doing to discharged on Levaquin, NEBS treatment and Prednisone. He was also advised to quit smoking. Counseling for smoking done. The patient was seen and examined with Nurse Practitioner. TIME SPENT: More than 30 minutes. Plan and coordination of the patient's care discussed in the presence of nurse. SUSANNE
--- NOTE | 2017-01-27 13:40 | PN ---
01/13/17: Level 5 01/14/17: Intermediate 01/15/17: Intermediate 01/16/17: Intermediate 01/17/17: Intermediate 01/18/17: Intermediate 01/19/17: D as in discharge MTDD
--- NOTE | 2017-02-03 08:15 | PN ---
DATE OF SERVICE: 01/18/17 SUBJECTIVE: 71 year old white male hospitalized with acute respiratory failure, acute bronchitis/pneumonitis with severe chronic lung disease. The patient's condition it steadily improving. His electrolytes are normal. REVIEW OF SYSTEMS: CONSTITUTIONAL: No night sweats. No fatigue, malaise, lethargy. No fever or chills. HEENT: Eyes: No visual changes. No eye pain. No eye discharge. ENT: No runny nose. No epistaxis. No sinus pain. No sore throat. No odynophagia. No congestion. RESPIRATORY: Mild occasional cough, no congestion. No hemoptysis. No shortness of breath. CARDIOVASCULAR: No angina symptoms. No CHF symptoms. No atypical chest pain for CAD. No palpitations. No orthopnea. GASTROINTESTINAL: No abdominal pain. No nausea or vomiting. No diarrhea or constipation. No hematemesis. No hematochezia. GENITOURINARY: No urgency. No frequency. No dysuria. No hematuria. No obstructive symptoms. No discharge. No pain. No significant abnormal bleeding. MUSCULOSKELETAL: No musculoskeletal pain; no joint swelling. NEUROLOGICAL: No headache. No neck pain. No syncope. No seizures. No dizziness. PSYCHIATRIC: Not anxious. No depression. No suicidal thoughts. No homicidal thoughts. SKIN: No rash. No lesions. No wounds. ENDOCRINE: No unexplained weight loss. No weight gain. HEMATOLOGIC/LYMPHATIC: No anemia. No purpura. No petechiae. No prolonged or excessive bleeding. No palpable lymph nodes. PHYSICAL EXAMINATION: HEENT: Head normocephalic, atraumatic. Eyes: Extraocular muscles are intact. Pupils are equal, round and reactive to light and accommodation. Ears: No lesions. Nose appeared normal. Throat: No exudate or erythema. NECK: Supple. No JVD, no carotid bruit. No lymphadenopathy or thyromegaly. LUNGS: Decreased breath sounds but clear to auscultation. Percussion note normal. Chest symmetrical. HEART: S1, S2, no S3. No murmurs. No cyanosis or clubbing. No ascites. Pulses: Dorsalis pedis and posterior tibial pulses +1 to +2 both sides. ABDOMEN: Soft. Nontender. Bowel sounds active. No CVA tenderness. No mass felt. EXTREMITIES: No edema. Full range of motion of all extremities, equal. NEUROLOGIC: No focal deficit. Cranial nerves II through XII are grossly intact. No headache, no double vision or headache. SKIN: Not dry. Intact. Turgor - normal. LYMPHATIC: No palpable lymph nodes/no lymphedema. MUSCULOSKELETAL: Normal joints with no swelling. Muscle tone is normal. ASSESSMENT: 1. Acute bronchitis 2. Respiratory failure, under control PROGNOSIS: Poor considering the patient's lifestyle, continued smoking and inactivity. The patient declined to do the pulmonary rehab. The patient was seen and examined with Nurse Practitioner. TIME SPENT: More than 30 minutes. Plan and coordination of the patient's care discussed in the presence of nurse. SUSANNE
--- NOTE | 2017-02-03 08:20 | PN ---
DATE OF SERVICE: 01/17/17 SUBJECTIVE: 71 Year old white male hospitalized with acute bronchitis, respiratory failure and the patient has severe COPD on home oxygen continuously. REVIEW OF SYSTEMS: CONSTITUTIONAL: No night sweats. No fatigue, malaise, lethargy. No fever or chills. HEENT: Eyes: No visual changes. No eye pain. No eye discharge. ENT: No runny nose. No epistaxis. No sinus pain. No sore throat. No odynophagia. No congestion. RESPIRATORY:Congested and still coughing up yellowish sputum. No hemoptysis. No shortness of breath. CARDIOVASCULAR: No angina symptoms. No CHF symptoms. No atypical chest pain for CAD. No palpitations. No orthopnea. No PND GASTROINTESTINAL: No abdominal pain. No nausea or vomiting. No diarrhea or constipation. No hematemesis. No hematochezia. GENITOURINARY: No urgency. No frequency. No dysuria. No hematuria. No obstructive symptoms. No discharge. No pain. No significant abnormal bleeding. MUSCULOSKELETAL: No musculoskeletal pain; no joint swelling. NEUROLOGICAL: No headache. No neck pain. No syncope. No seizures. No dizziness. PSYCHIATRIC: Not anxious. No depression. No suicidal thoughts. No homicidal thoughts. SKIN: No rash. No lesions. No wounds. ENDOCRINE: No unexplained weight loss. No weight gain. HEMATOLOGIC/LYMPHATIC: No anemia. No purpura. No petechiae. No prolonged or excessive bleeding. No palpable lymph nodes. PHYSICAL EXAMINATION: GENERAL: The patient is oriented to time, place and person. VITAL SIGNS: Temperature 97, pulse 64, respiratory rate 18, blood pressure 110/ 65 and pulse ox 96% on 2 liters. HEENT: Head normocephalic, atraumatic. Eyes: Extraocular muscles are intact. Pupils are equal, round and reactive to light and accommodation. Ears: No lesions. Nose appeared normal. Throat: No exudate or erythema. NECK: Supple. No JVD, no carotid bruit. No lymphadenopathy or thyromegaly. LUNGS: Decreased breath sounds but good air entry for him. Percussion note normal. Chest symmetrical. HEART: S1, S2, no S3. No murmurs. No cyanosis or clubbing. No ascites. Pulses: Dorsalis pedis and posterior tibial pulses +1 to +2 both sides. ABDOMEN: Soft. Nontender. Bowel sounds active. No CVA tenderness. No mass felt. EXTREMITIES: No edema. Full range of motion of all extremities, equal. NEUROLOGIC: No focal deficit. Cranial nerves II through XII are grossly intact. No headache, no double vision or headache. SKIN: Not dry. Intact. Turgor - normal. LYMPHATIC: No palpable lymph nodes/no lymphedema. MUSCULOSKELETAL: Normal joints with no swelling. Muscle tone is normal. ASSESSMENT: 1. Acute bronchitis 2. Respiratory failure under control 3. Coronary artery disease 4. Hypertension 5. Non-compliance 6. Smoking, counseling for smoking done. PLAN: 1. Continue NEBS Treatments, steroids and antibiotics CONDITION: Stable. TIME SPENT: More than 30 minutes. Plan and coordination of the patient's care discussed in the presence of nurse. SUSANNE
--- NOTE | 2017-02-03 08:27 | PN ---
DATE OF SERVICE: 01/16/17 SUBJECTIVE: 71 year old white male hospitalized with acute bronchitis and respiratory failure. The patient still has a lot sputum production with cough and congestion. He is on NEBS treatment,steroids, IV antibiotics. Counseling for smoking was done. REVIEW OF SYSTEMS: CONSTITUTIONAL: No night sweats. No fatigue, malaise, lethargy. No fever or chills. HEENT: Eyes: No visual changes. No eye pain. No eye discharge. ENT: No runny nose. No epistaxis. No sinus pain. No sore throat. No odynophagia. No congestion. RESPIRATORY: No cough, no congestion. No hemoptysis. No shortness of breath. CARDIOVASCULAR: No angina symptoms. No CHF symptoms. No atypical chest pain for CAD. No palpitations. No orthopnea. GASTROINTESTINAL: No abdominal pain. No nausea or vomiting. No diarrhea or constipation. No hematemesis. No hematochezia. GENITOURINARY: No urgency. No frequency. No dysuria. No hematuria. No obstructive symptoms. No discharge. No pain. No significant abnormal bleeding. MUSCULOSKELETAL: No musculoskeletal pain; no joint swelling. NEUROLOGICAL: No headache. No neck pain. No syncope. No seizures. No dizziness. PSYCHIATRIC: Not anxious. No depression. No suicidal thoughts. No homicidal thoughts. SKIN: No rash. No lesions. No wounds. ENDOCRINE: No unexplained weight loss. No weight gain. HEMATOLOGIC/LYMPHATIC: No anemia. No purpura. No petechiae. No prolonged or excessive bleeding. No palpable lymph nodes. PHYSICAL EXAMINATION: GENERAL: The patient is oriented to time, place and person. VITAL SIGNS: Temperature 97.1, pulse 64, respiratory rate 20, blood pressure 110/60 and pulse ox 94% with 2 liters. HEENT: Head normocephalic, atraumatic. Eyes: Extraocular muscles are intact. Pupils are equal, round and reactive to light and accommodation. Ears: No lesions. Nose appeared normal. Throat: No exudate or erythema. NECK: Supple. No JVD, no carotid bruit. No lymphadenopathy or thyromegaly. LUNGS: Decreased breath sounds with mild expiratory wheeze. Percussion note normal. Chest symmetrical. HEART: S1, S2, no S3. No murmurs. No cyanosis or clubbing. No ascites. Pulses: Dorsalis pedis and posterior tibial pulses +1 to +2 both sides. ABDOMEN: Soft. Nontender. Bowel sounds active. No CVA tenderness. No mass felt. EXTREMITIES: No edema. Full range of motion of all extremities, equal. NEUROLOGIC: No focal deficit. Cranial nerves II through XII are grossly intact. No headache, no double vision or headache. SKIN: Not dry. Intact. Turgor - normal. LYMPHATIC: No palpable lymph nodes/no lymphedema. MUSCULOSKELETAL: Normal joints with no swelling. Muscle tone is normal. LABS: Hgb 12.2, hc t 37, WBC 9,300 normal differential, potassium yesterday was 3 and he has already been given potassium supplement. ASSESSMENT: 1. Acute bronchitis, respiratory failure subsided. The patient had mucus plug with respiratory distress the day before yesterday which improved remarkably with NEBS treatment and oxygen supplements with steroids. PLAN: 1. Advised the patient to have pulmonary rehab 2. Advised to quit smoking 3. Breathing exercises discussed 4. Side effects of steroids discussed with diabetes mellitus and osteoporosis, avascular necrosis of the femur etc. CONDITION: Stable and improving PROGNOSIS: Guarded. The patient is DNR TIME SPENT: More than 30 minutes. Plan and coordination of the patient's care discussed in the presence of nurse. SUSANNE
--- NOTE | 2017-02-03 13:56 | DS ---
DATE OF SERVICE: 01/19/17 FINAL DIAGNOSIS: 1. ACUTE BRONCHITIS 2. RESPIRATORY FAILURE 3. COPD, OXYGEN DEPENDENT 4. DYSLIPIDEMIA 5. HYPOTHYROID 6. GERD 7. ANXIETY 8. DEPRESSION 9. 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 OSTEOARTHRITIS 12. INTRARENAL ABDOMINAL ANEURYSM, 4 CM DISCHARGE INSTRUCTIONS: Followup appointment is scheduled with Dr. Ceja on 01/22/17 at 11 a.m. Continue use of home oxygen at 3L/NC Continue use of nebulizer treatments at least 3 times daily MEDICATIONS AT DISCHARGE: Acetaminophen/Hydrocodone ([place] 5-325) one tab p.o. b.i.d. p.r.n. Aspirin 81 mg p.o. daily with meal [facility] Budesonide/Formoterol Fumarate (Symbicort 160-4.5 mcg) two puff IN b.i.d. [facility] Cholecalciferol (Vitamin D) 1,000 unit p.o. daily Diltiazem 60 mg p.o. q.12hr [facility] Ferrous Sulfate 324 mg p.o. b.i.d. [facility] Gabapentin 300 mg p.o. b.i.d. [facility] Hydrochlorothiazide 25 mg p.o. daily [facility] Lamotrigine (Lamictal) 25 mg p.o. b.i.d. [facility]ANK[facility] Ipratropium/Albuterol one IH b.i.d. Levothyroxine (Synthroid) 75 mcg p.o. q.d a.c [facility] Lorazepam (Ativan) 0.5 mg p.o. t.i.d. [facility] Primidone 50 mg p.o. t.i.d. [facility] Zyprexa 2.5 mg p.o. b.i.d. [facility] Omeprazole 20 mg p.o. q.d a.c. [facility] Miralax 17 gm p.o. daily p.r.n. Daliresp 500 mcg p.o. daily [facility] Zocor 20 mg p.o. 1700 [facility] Carafate 1 gm p.o. t.i.d. [facility] Flomax 0.4 mg p.o. 1700 [facility] NEW PRESCRIPTIONS: Prednisone 20 mg b.i.d. for 2 days then 10 mg b.i.d. for 5 days Levaquin 500 mg daily for 3 days DIET INSTRUCTIONS: Regular ACTIVITY: Gradually resume as tolerated SMOKING: No smoking (has stopped) DISEASE SPECIFIC EDUCATION: Medications Continuation of nebulizer treatments at least 3 times daily Prescriptions Appointment Use of steroids with side effects of bone demineralization, GI upset discussed HOSPITAL COURSE: This is a 71-year-old male who was admitted from the emergency room with shortness of breath, acute respiratory failure and acute bronchitis. Chest x- ray revealed severe COPD but no pneumonia. He was in severe respiratory failure with saturations into the 70s upon arrival. He was started on nebs q.4 to 6 hr along with Solu-Cortef 125 mg q.6hr. Over the course of several days he slowly improved. He did have a bout on day three with a desaturation into the 70s. After rescue nebulizer treatment and coughing up some sputum, his oxygen saturation improved into the upper 80s. For the past two days he has been on p.o. Prednisone 20 mg b.i.d. as tolerated, coming off the Solu-Cortef well. He has been up and about walking for the past two days with minimal exertion. Prior to admission he was unable to walk due to shortness of breath causing dizziness. He was admitted, placed on routine telemetry orders, placed on Levaquin 500 mg IV daily. His oxygen has been at 2 to 3L. All of his home medications were continued. Today, on day of discharge, he reports that he is feeling much better and stronger. He has been eating about 75% of his meals for the past two days. He has remained afebrile since admission. Temperature 98 today, heart rate 66, respirations 24, BP 121/69, pulse ox 92% on 2L. The patient does have a history of being a detention smoker, smoking cessation information was provided. The patient has a nebulizer machine at home which he will continue neb treatments every q.4 to 6hr as needed. He is going home and currently lives with his sister. He will continue Levaquin 500 mg p.o. daily for the next 3 days along with a tapering dose of Prednisone 20 mg b.i.d. for the next two days and then 10 mg b.i.d. times five days. We will followup with him at the end of the week in the office. He is to see us sooner if signs and symptoms do not continue to improve. TIME SPENT: More than 60 minutes. SUSANNE
== END 2017-01-19 13:05 | disposition home or self-care (01) | DRG 202 ==
LOC: MEDSURG A 11:50
PROVIDERS: ADMIT Internal Medicine; ATTEND Internal Medicine
DX: J20.9 Acute bronchitis, unspecified (principal); J96.00 Acute respiratory failure, unspecified whether with hypoxia or hypercapnia; J44.9 Chronic obstructive pulmonary disease, unspecified; E77.8 Other disorders of glycoprotein metabolism; I71.4 Abdominal aortic aneurysm, without rupture; R42 Dizziness and giddiness; E78.5 Hyperlipidemia, unspecified; E03.9 Hypothyroidism, unspecified; K21.9 Gastro-esophageal reflux disease without esophagitis; F41.8 Other specified anxiety disorders; N40.0 Benign prostatic hyperplasia without lower urinary tract symptoms; M19.90 Unspecified osteoarthritis, unspecified site; F17.200 Nicotine dependence, unspecified, uncomplicated; E87.6 Hypokalemia; Z91.19 Patient's noncompliance with other medical treatment and regimen; Z79.899 Other long term (current) drug therapy; Z95.1 Presence of aortocoronary bypass graft; Z99.81 Dependence on supplemental oxygen
CPT/HCPCS: 36415; 80053; 81001; 82550; 82553; 82803; 83874; 84436; 84443; 84484; 85025; 87040; 87070; 87077; 87186; 93005; 93010; 94640; 99223; 99232; 99239

== ENCOUNTER 2017-03-15 22:18 | Inpatient (IN) ==
[2017-03-15] MEDS ORDERED: ROCEPHIN 1 GM in SODIUM CHLORIDE 50 ML IV STA (22:21)
[2017-03-15] MEDS ORDERED: XOPENEX 1.25 MG NEB STA (22:21)
[2017-03-15] MEDS ORDERED: SOLU-MEDROL 125 MG IVP STA (22:21)
[2017-03-15] MEDS ORDERED: DUONEB NEB STA (22:21)
[2017-03-15 22:42] LABS: BASOPHILS % (AUTO) 0.4 % (0.0-3.0); EOSINOPHILS # (AUTO) 0.2 K/ul (0.0-0.7); EOSINOPHILS % (AUTO) 3.2 % (0.0-7.0); HEMATOCRIT 42.5 % (42.0-52.0); HEMOGLOBIN 14.3 g/dl (14.0-18.0); IMMATURE GRANULOCYTE % (AUTO) 0.3 % (0.0-5.0); LYMPHOCYTES # (AUTO) 2.1 K/uL (0.60-3.4); LYMPHOCYTES % (AUTO) 29.1 (10.0-50.0); MEAN CORPUSCULAR HEMOGLOBIN 32.5 pg (27.0-31.0); MEAN CORPUSCULAR HGB CONC 33.6 (31.8-35.4); MEAN CORPUSCULAR VOLUME 96.6 fl (80.0-94.0); MONOCYTES # (AUTO) 0.7 K/uL (0.4-2.0); MONOCYTES % (AUTO) 9.8 (0-10); NEUTROPHILS # (AUTO) 4.1 K/ul (2.0-6.9); NEUTROPHILS % (AUTO) 57.2; PLATELET COUNT 185 10^3/uL (140-440); WHITE BLOOD COUNT 7.17 K/ul (4.2-10.2)
[2017-03-15] MEDS ORDERED: ROCEPHIN ONE (22:42)
[2017-03-15 23:09] LABS: ALBUMIN 3.5 g/dL (3.4-5.0); ALBUMIN/GLOBULIN RATIO 0.95; ANION GAP 14.3; BILIRUBIN,TOTAL 0.17 mg/dL (0.00-1.20); BUN/CREATININE RATIO 9.41; CALCIUM 9.4 mg/dL (8.2-10.2); CREATININE 0.85 mg/dL (0.60-1.10); POTASSIUM 3.3 mmol/L (3.5-5.1); TOTAL PROTEIN 7.2 g/dL (5.8-8.1); TROPONIN I 0.021 ng/ml (0.0000-0.4000)
--- NOTE | 2017-03-15 23:34 | CT ---
EXAM: CT scan thorax without contrast HISTORY: Dyspnea COMPARISON: CT scan thorax 11/01/2014 FINDINGS: Contiguous axial images obtained through the thorax without contrast utilizing 5-mm collim ation. Sagittal and coronal reconstructions were imaged and reviewed.. The thoracic inlet is unrema rkable. There are subcentimeter prevascular and pretracheal lymph nodes.. There are calcified left hilar lymph nodes. The ascending aorta is ectatic measuring 3.8 cm. Heart is normal in size with co ronary artery calcification. There is no pericardial effusion. The lungs are emphysematous. There a re bibasilar opacities which may be related to developing infiltrates. There has been prior cholecys tectomy.. IMPRESSION: Atelectasis and/or pneumonia at both lung bases.. Ectatic ascending aorta. Marked emphysema.
[2017-03-15 23:49] LABS: ABG PCO2 65.9 mmHg (35-45); ABG PH 7.393 (7.35-7.45)
--- NOTE | 2017-03-15 23:52 | ED.PDOC ---
General ED Provider: Dr. JOSE F SHORT-ER Chief Complaint: Shortness of Air Stated Complaint: STEPHEN BEEN COUGHING AND SOB TODAY Time Seen by Physician: 22:20 Mode of Arrival: Ambulance Information Source: Patient, Family, EMT Exam Limitations: No limitations Primary Care Provider: MARLENY WELLER Nursing and Triage Documentation Reviewed and Agree: Yes Respiratory Complaint Exam - Shortness of Air Complaint/Exam Onset/Duration: 24 HRS Symptoms Are: Still present Timing: Intermittent Initial Severity: Mild Current Severity: Moderate Character: Reports: Dyspnea at rest Aggravating: Reports: None Alleviating: Reports: None Associated Signs and Symptoms: Reports: Cough, Wheezing, Nasal congestion, Labored breathing. Denies: Chest pain with cough, Chest pain, Fever, Chills, Diaphoresis, Dizziness, Calf pain, Calf swelling, Edema, Rapid breathing, Decreased intake Related History: Reports: Similar episode History of Healthcare-Acquired Pneumonia: No Pulmonary Embolism Risk Factors: Reports: None Cardiac Risk Factors: Reports: None Pseudomonas Risk Factors: Reports: Chronic Lung Disease Tuberculosis Risk Factors: Reports: Chronic Resp. Faliure Home Oxygen Use: Yes Recent Stress Test: No Recent Echo/LV Function: No Respiratory Distress: Mild Stridor Present: No Tracheal Deviation: No Subcutaneous Emphysema: No Accessory Muscle Use: Yes Retractions: Not Present Diminished Breath Sounds: No Prolonged Expiratory Phase: No Unable to Speak Full Sentences: Yes Fatigue: No Leg Swelling: No Bessy's Sign Present: No Grunting Respirations: No Kussmaul Respirations: No Differential Diagnoses: COPD Exacerbation, Pneumonia Quality Indicator For Non-Traumatic Chest Pain/Syncope: EKG Performed Quality Indicators For Pneumonia/CAP: Blood Cultures-SCU admit, Antibiotics in 6hr-admit, SpO2 assessed, Empiric Antibiotic Rx, Vital signs, Mental status assessed Review of Systems - Review Of Systems Constitutional: Reports: No symptoms Eyes: Reports: No symptoms Ears, Nose, Mouth, Throat: Reports: No symptoms Respiratory: Reports: Cough, Short of air, Wheezing Cardiac: Reports: No symptoms GI: Reports: No symptoms : Reports: No symptoms Musculoskeletal: Reports: No symptoms Skin: Reports: No symptoms Neurological: Reports: No symptoms Endocrine: Reports: No symptoms Hematologic/Lymphatic: Reports: No symptoms All Other Systems: Reviewed and Negative Past Medical History - Past Medical History Previously Healthy: No (Pneumonia; DC'd June 17) Endocrine: Reports: Hypothyroid, Dyslipidemia Cardiovascular: Reports: CAD, Hypertension Respiratory: Reports: COPD Hematological: Reports: Anemia Gastrointestinal: Reports: GERD Genitourinary: Reports: None Neuro/Psych: Reports: Anxiety, Depression Musculoskeletal: Reports: Arthritis, Back Pain, Joint Pain Cancer: Reports: Other Other Pertinent Past Medical History: sepd - Surgical History General Surgical History: Reports: Cholecystectomy - Family History Family History: Reports: Unknown - Social History Smoking Status: Former smoker, Light tobacco smoker Hx Substance Use: No Alcohol Screening: None Lives: With family - Immunizations Tetanus Shot up to Date: Yes Physical Exam - Physical Exam Appearance: Well-appearing, No pain distress, Well-nourished Eyes: WILLIAM ENT: Ears normal, Nose normal, Oropharynx normal Neck: Supple Respiratory: Crackles, Rhonchi Cardiovascular: RRR, Pulses normal, No rub, No murmur GI/: Soft, Nontender, No masses, Bowel sounds normal, No Organomegaly Musculoskeletal: Normal strength, ROM intact, No edema, No calf tenderness Skin: Warm Neurological: Sensation intact Psychiatric: Affect appropriate, Mood appropriate Interpretation - Radiology Interpretation Radiology Interpretation By: Radiologist Radiology Results: Negative Exam Interpreted: CT Scan - EKG Interpretation Time of EKG #1: 23:53 Rate: Normal Rhythm: Sinus Ectopy: None [place]: NL ST Segment: Normal Interpretation: NSR Re-Evaluation - Re-Evaluation Time of Re-Evaluation: 00:00 Status: Improved Vital Signs Stable: Yes Pain Level: 0 Lungs: Clear Skin: Warm and Dry Neuro: Alert and Oriented X3 CV: RRR Physician Notification - Case Discussed Physician Notified: DR WELLER Time of Notification: 00:00 Critical Care Note - Critical Care Note Total Time (mins): 0 Course - Course Hematology/Chemistry: 03/15/17 22:25 03/15/17 22:25 Orders, Labs, Meds: Lab Review 03/15/17 03/15/17 03/15/17 22:25 22:25 22:25 WBC 7.17 RBC 4.40 L Hgb 14.3 Hct 42.5 MCV 96.6 H MCH 32.5 H MCHC 33.6 RDW Coeff of Evan 14.3 Plt Count 185 Immature Gran % (Auto) 0.3 Neut % (Auto) 57.2 Lymph % (Auto) 29.1 [place] % (Auto) 9.8 Eos % (Auto) 3.2 Baso % (Auto) 0.4 Immature Gran # (Auto) 0.0 Neut # 4.1 Lymph # 2.1 [place] # 0.7 Eos # 0.2 Baso # 0.0 D-Dimer (Manual) Sodium 139 Potassium 3.3 L Chloride 93 L Carbon Dioxide 35 H Anion Gap 14.3 BUN 8 Creatinine 0.85 Estimated GFR (MDRD) 89.00 BUN/Creatinine Ratio 9.41 Glucose 86 Calcium 9.4 Total Bilirubin 0.17 AST 14 L ALT 12 Alkaline Phosphatase 60 Total Creatine Kinase 87 Troponin I 0.0210 B-Natriuretic Peptide 11 Total Protein 7.2 Albumin 3.5 Globulin 3.7 Albumin/Globulin Ratio 0.95 03/15/17 22:25 WBC RBC Hgb Hct MCV MCH MCHC RDW Coeff of Evan Plt Count Immature Gran % (Auto) Neut % (Auto) Lymph % (Auto) [place] % (Auto) Eos % (Auto) Baso % (Auto) Immature Gran # (Auto) Neut # Lymph # [place] # Eos # Baso # D-Dimer (Manual) 451.91 Sodium Potassium Chloride Carbon Dioxide Anion Gap BUN Creatinine Estimated GFR (MDRD) BUN/Creatinine Ratio Glucose Calcium Total Bilirubin AST ALT Alkaline Phosphatase Total Creatine Kinase Troponin I B-Natriuretic Peptide Total Protein Albumin Globulin Albumin/Globulin Ratio Orders Category Date Time Status ABG DRAW REQUEST Stat CARDIO 03/15/17 22:27 Completed EKG-(ED ONLY) Stat CARDIO 03/15/17 22:35 Completed NEBULIZER TREATMENT Stat CARDIO 03/15/17 22:21 Completed ED IV/MEDIPORT/POWERPORT .ONCE EMERGENCY 03/15/17 22:20 Active ABG Stat LAB 03/15/17 22:27 Received B-TYPE NATRIURETIC PEPTIDE Stat LAB 03/15/17 22:25 Completed BLOOD CULTURE (ED ONLY) Stat LAB 03/15/17 22:25 Received CBC W/ AUTO DIFF Stat LAB 03/15/17 22:25 Completed COMPREHENSIVE METABOLIC PANEL Stat LAB 03/15/17 22:25 Completed CREATINE KINASE Stat LAB 03/15/17 22:25 Completed D-DIMER Stat LAB 03/15/17 22:25 Completed FLU A & B RAPID TEST [RAPID FLU A/B] Stat LAB 03/15/17 22:20 Uncollected TROPONIN I Stat LAB 03/15/17 22:25 Completed 0.9 % Sodium Chloride [Saline Flush] MEDS 03/15/17 22:20 Ordered 1 syr IVF PRN PRN Ceftriaxone Sodium [Rocephin] MEDS 03/15/17 22:42 Discontinued 1 gm .ROUTE .STK-MED ONE Ceftriaxone Sodium [Rocephin] 1 gm MEDS 03/15/17 22:21 Discontinued 0.9 % Sodium Chloride [Sodium Chloride] 50 ml IV ONCE Ipratropium/Albuterol Neb [Duoneb] MEDS 03/15/17 22:21 Discontinued 1 vial NEB ONCE STA Levalbuterol HCl [Xopenex 1.25 mg] MEDS 03/15/17 22:21 Discontinued 1 vial NEB ONCE STA Methylprednisolone Sod Succ/Pf [Solu-Medrol 125 mg] MEDS 03/15/17 22:21 Discontinued 125 [address] IVP ONCE STA CT CHEST W/O CONTRAST Stat RADS 03/15/17 22:22 Completed Medications Generic Name Dose Route Start Last Admin Trade Name Freq PRN Reason Stop Dose Admin Sodium Chloride 1 syr 03/15/17 22:20 03/15/17 22:46 Saline Flush IVF 1 syr PRN PRN Administration To flush IV Discontinued Medications Generic Name Dose Route Start Last Admin Trade Name Freq PRN Reason Stop Dose Admin Albuterol/Ipratropium 1 vial 03/15/17 22:21 03/15/17 22:28 Duoneb NEB 03/15/17 22:22 1 vial ONCE STA Administration Ceftriaxone Sodium 1 gm/ 50 mls @ 75 mls/hr 03/15/17 22:21 03/15/17 23:01 Sodium Chloride IV 03/15/17 23:00 75 mls/hr ONCE STA Administration Levalbuterol HCl 1 vial 03/15/17 22:21 03/15/17 22:38 Xopenex 1.25 Mg NEB 03/15/17 22:22 1 vial ONCE STA Administration Methylprednisolone Sodium Succinate 125 mg 03/15/17 22:21 03/15/17 22:46 Solu-Medrol 125 Mg IVP 03/15/17 22:22 125 mg ONCE STA Administration Vital Signs: Temp Pulse Resp BP Pulse Ox 03/15/17 22:19 98.5 F 78 28 H 125/81 97 Departure - Departure Time of Disposition: 00:00 Disposition: ADMITTED INPATIENT Discharge Problem: Pneumonia Qualifiers: Pneumonia type: due to unspecified organism Laterality: unspecified laterality Lung location: unspecified part of lung Qualified Code(s): J18.9 - Pneumonia, unspecified organism Instructions: Community Acquired Pneumonia (ED) Condition: Good Pt referred to PMD for follow-up: Yes Allergies/Adverse Reactions: Allergies codeine Adverse Reaction (Verified 03/15/17 22:27) metoclopramide HCl [From Reglan] Adverse Reaction (Verified 03/15/17 22:27) Home Medications: Ambulatory Orders Gabapentin 300 mg PO BID 11/18/13 Simvastatin [Zocor] 20 mg PO 1700 11/18/13 Tamsulosin HCl 0.4 mg PO 1700 11/18/13 Ipratropium/Albuterol Neb [Duoneb] 1 vial INH BID 01/13/14 Levothyroxine Sodium [Synthroid] 75 mcg PO QDAC 01/13/14 Budesonide/Formoterol Fumarate [Symbicort 160-4.5 Mcg Inhaler] 2 puff IH BID Hydrochlorothiazide 25 mg PO DAILY 05/10/15 Sucralfate [Carafate] 1 gm PO QID 05/10/15 Lamotrigine [Lamictal] 25 mg PO BID #60 11/21/15 Lorazepam 0.5 mg PO TID #90 11/21/15 Omeprazole [Prilosec] 20 mg PO QDAC 02/29/16 Roflumilast [Daliresp] 500 mcg PO DAILY 02/29/16 Primidone 50 mg PO TID #90 05/07/16 Aspirin [Ecotrin] 81 mg PO DAILY 06/10/16 Diltiazem HCl [Cardizem] 60 mg PO Q12HR #60 tablet 06/17/16 Olanzapine [Zyprexa] 2.5 mg PO BID #60 07/30/16 Cholecalciferol (Vitamin D3) [Vitamin D] 1 tab PO DAILY 01/13/17 Ferrous Sulfate 1 tab PO BID 01/13/17 Polyethylene Glycol 3350 [Miralax] 1 pkt PO DAILY PRN 01/13/17 Hydrocodone Bit/Acetaminophen [[place] 5-325] 1 tab PO BID PRN 03/15/17 Transfer Form Completed: No Disposition Discussed With: Patient, Family
[2017-03-15 23:58] LABS: ABG BASE EXCESS 15 (-2.0-2.0); ABG HCO3 40.2 (22.0-26.0); ABG TCO2 42 (22.0-28.0)
[2017-03-16] MEDS ORDERED: TYLENOL PO PRN (00:02)
[2017-03-16] MEDS ORDERED: MIRALAX PO PRN (00:05)
[2017-03-16 00:21] LABS: FLU INTERNAL QC INTERNAL QC VALID; RAPID FLU A NEGATIVE (NEGATIVE); RAPID FLU B NEGATIVE (NEGATIVE)
[2017-03-16 00:55] VITALS: BMI 25.6
[2017-03-16 04:55] LABS: BASOPHILS % (AUTO) 0.1 % (0.0-3.0); HEMOGLOBIN 13.5 g/dl (14.0-18.0); IMMATURE GRANULOCYTE % (AUTO) 0.2 % (0.0-5.0); LYMPHOCYTES # (AUTO) 0.3 K/uL (0.60-3.4); LYMPHOCYTES % (AUTO) 3.4 (10.0-50.0); MEAN CORPUSCULAR HEMOGLOBIN 32.1 pg (27.0-31.0); MEAN CORPUSCULAR HGB CONC 33.8 (31.8-35.4); MEAN CORPUSCULAR VOLUME 95.2 fl (80.0-94.0); MONOCYTES # (AUTO) 0.1 K/uL (0.4-2.0); MONOCYTES % (AUTO) 0.6 (0-10); NEUTROPHILS # (AUTO) 7.9 K/ul (2.0-6.9); NEUTROPHILS % (AUTO) 95.7; PLATELET COUNT 179 10^3/uL (140-440); WHITE BLOOD COUNT 8.29 K/ul (4.2-10.2)
[2017-03-16 05:28] LABS: ALBUMIN 3.2 g/dL (3.4-5.0); ALBUMIN/GLOBULIN RATIO 0.91; ANION GAP 13.6; BILIRUBIN,TOTAL 0.16 mg/dL (0.00-1.20); BUN/CREATININE RATIO 11.9; CALCIUM 9.3 mg/dL (8.2-10.2); CREATININE 0.84 mg/dL (0.60-1.10); POTASSIUM 3.6 mmol/L (3.5-5.1); TOTAL PROTEIN 6.7 g/dL (5.8-8.1)
[2017-03-16] MEDS: DUONEB NEB SCH ×3 (05:36→17:00)
[2017-03-16] MEDS: PRILOSEC PO SCH (05:53)
[2017-03-16] MEDS: SYNTHROID PO SCH (05:53)
[2017-03-16] MEDS: CARAFATE PO SCH ×4 (08:05→20:20)
[2017-03-16] MEDS: NEURONTIN PO SCH ×2 (08:57→20:20)
[2017-03-16] MEDS: SYMBICORT 160-4.5 MCG INHALER IH SCH ×2 (08:57→20:19)
[2017-03-16] MEDS: VITAMIN D PO SCH (08:58)
[2017-03-16] MEDS: ZITHROMAX PO SCH (08:58)
[2017-03-16] MEDS: PRIMIDONE 50 MG PO SCH ×3 (08:58→20:21)
[2017-03-16] MEDS: FERROUS SULFATE PO SCH ×2 (08:58→20:20)
[2017-03-16] MEDS: DALIRESP PO SCH (08:59)
[2017-03-16] MEDS: HYDROCHLOROTHIAZIDE PO SCH (08:59)
[2017-03-16] MEDS: LAMICTAL PO SCH ×2 (08:59→20:20)
[2017-03-16] MEDS: ASPIRIN EC PO SCH (09:00)
[2017-03-16] MEDS ORDERED: NON-FORMULARY MEDICATION (Hydrochlorothiazide [Hydrochlorothiazide] 25 MG) PO SCH ×22 (09:00)
[2017-03-16] MEDS: CARDIZEM PO SCH ×2 (09:00→20:20)
[2017-03-16] MEDS ORDERED: NON-FORMULARY MEDICATION (Gabapentin [Gabapentin] 300 MG) PO SCH (09:00)
[2017-03-16] MEDS: ZYPREXA PO SCH ×2 (09:00→20:20)
[2017-03-16] MEDS ORDERED: NON-FORMULARY MEDICATION (Ferrous Sulfate [Ferrous Sulfate] 1 TAB) PO SCH (09:00)
[2017-03-16] MEDS ORDERED: SOLU-MEDROL 40 MG IVP SCH ×2 (09:00)
[2017-03-16] MEDS: LOVENOX SUBCUT SCH (09:01)
[2017-03-16] MEDS: ATIVAN PO SCH ×3 (09:11→20:20)
[2017-03-16] MEDS: SOLU-MEDROL 125 MG IVP SCH ×3 (10:03→20:20)
--- NOTE | 2017-03-16 10:27 | PCM.PROG ---
Attending Provider: ATTENDING PROVIDER: Dr. MARLENY WELLER This patient is seen with Amber Guadalupe, Nurse Practitioner. DATE OF SERVICE: 03/16/17 SUBJECTIVE: This 71 year old WHITE/ M was hospitalized 03/16/17. The patient is alert lying in bed still wheezing. He had extreme shortness of breath at home with near syncopal episode. REVIEW OF SYSTEMS: CONSTITUTIONAL: Malaise. No night sweats. No fever or chills. HEENT: Eyes: No visual changes. No eye pain. No eye discharge. ENT: No runny nose. No epistaxis. No sinus pain. No odynophagia. No congestion. RESPIRATORY: Cough and congestion. . No hemoptysis. Shortness of breath. CARDIOVASCULAR: No angina symptoms. No CHF symptoms. No atypical chest pain for CAD. No palpitations. No orthopnea.. GASTROINTESTINAL: No abdominal pain. No nausea or vomiting. No diarrhea or constipation. No hematemesis. No hematochezia. GENITOURINARY: No urgency. No frequency. No dysuria. No hematuria. No obstructive symptoms. No discharge. No pain. No significant abnormal bleeding. MUSCULOSKELETAL: No musculoskeletal pain; no joint swelling. NEUROLOGICAL: Awake, alert, oriented to time, place and person. No headache. No neck pain. No syncope. No seizures. No dizziness. PSYCHIATRIC: Not anxious. No depression. No suicidal thoughts. No homicidal thoughts. SKIN: No rash. No lesions. No wounds. ENDOCRINE: No unexplained weight loss. No weight gain. HEMATOLOGIC/LYMPHATIC: No anemia. No purpura. No petechiae. No prolonged or excessive bleeding. No palpable lymph nodes. PHYSICAL EXAMINATION: GENERAL: The patient is awake, alert and oriented, lying in bed in no distress. VITAL SIGNS: Temperature 97.8 F, Pulse 71, Respiratory Rate 18, BP 107/66, Pulse Ox 92% HEENT: Head normocephalic, atraumatic. Eyes: Extraocular muscles are intact. Pupils are equal, round and reactive to light and accommodation. Ears: No lesions. Nose appeared normal. Throat: No exudate or erythema. NECK: Supple. No JVD, no carotid bruit. No lymphadenopathy or thyromegaly. LUNGS: Diminished breath sounds bilaterally with bilateral inspiratory and expiratory wheeze and rhonchi. Percussion note normal. Chest symmetrical. HEART: S1, S2, no S3. No murmurs. No cyanosis or clubbing. No ascites. Pulses: Dorsalis pedis and posterior tibial pulses +1 to +2 both sides. ABDOMEN: Soft. Non-tender. Bowel sounds active. No CVA tenderness. No mass felt. EXTREMITIES: No edema. Full range of motion of all extremities, equal. NEUROLOGIC: No focal deficit. Cranial nerves II through XII are grossly intact. No headache, no double vision or headache. SKIN: Not dry. Intact. Turgor-normal. LYMPHATIC: No palpable lymph nodes/no lymphedema. MUSCULOSKELETAL: Normal joints with no swelling. Muscle tone is normal. LAB REVIEW: 03/16/17 04:45 03/16/17 04:45 03/16/17 04:45: Sodium 138, Potassium 3.6, Chloride 94 L, Carbon Dioxide 34 H, Anion Gap 13.6, BUN 10, Creatinine 0.84, Estimated GFR (MDRD) 90.00, BUN/ Creatinine Ratio 11.90, Glucose 254 H D, Calcium 9.3, Total Bilirubin 0.16, AST 13 L, ALT 11 L, Alkaline Phosphatase 58, Total Protein 6.7, Albumin 3.2 L, Globulin 3.5, Albumin/Globulin Ratio 0.91 03/16/17 04:45: WBC 8.29, RBC 4.20 L, Hgb 13.5 L, Hct 40.0 L, MCV 95.2 H, MCH 32.1 H, MCHC 33.8, RDW Coeff of Evan 14.1, Plt Count 179, Immature Gran % (Auto) 0.2, Neut % (Auto) 95.7, Lymph % (Auto) 3.4 L, [place] % (Auto) 0.6, Eos % (Auto) 0.0, Baso % (Auto) 0.1, Immature Gran # (Auto) 0.0, Neut # 7.9 H, Lymph # 0.3 L , [place] # 0.1 L, Eos # 0.0, Baso # 0.0 ASSESSMENT: 1. BILATERAL PNEUMONIA 2. SEVERE COPD 3. SMOKER PLAN: 1. Solu-Medrol 125 q.8hr 2. Continue Duonebs q.6HR Plan and coordination of the patient's care discussed in the presence of Hookman and nurse. CONDITION: Stable SCRIBED BY: SANDY CASANOVA Bar Catcher scribed while in presence of service performed by Dr. Weller/Amber Guadalupe APRN on 03/16/17 ([id number])
[2017-03-16] MEDS ORDERED: NON-FORMULARY MEDICATION (Simvastatin [Zocor] 20 MG) PO SCH ×22 (17:00)
[2017-03-16] MEDS: ZOCOR PO SCH (17:08)
[2017-03-16] MEDS: FLOMAX PO SCH (17:08)
[2017-03-16] MEDS: ROCEPHIN 1 GM in SODIUM CHLORIDE 50 ML IV SCH (20:19)
[2017-03-16] MEDS: NORCO 5-325 PO PRN (20:20)
[2017-03-17] MEDS: DUONEB NEB SCH ×5 (00:22→23:00)
[2017-03-17 05:25] LABS: HEMATOCRIT 36.4 % (42.0-52.0); HEMOGLOBIN 12.4 g/dl (14.0-18.0); IMMATURE GRANULOCYTE % (AUTO) 0.3 % (0.0-5.0); LYMPHOCYTES # (AUTO) 0.5 K/uL (0.60-3.4); MEAN CORPUSCULAR HEMOGLOBIN 32.1 pg (27.0-31.0); MEAN CORPUSCULAR HGB CONC 34.1 (31.8-35.4); MEAN CORPUSCULAR VOLUME 94.3 fl (80.0-94.0); MONOCYTES # (AUTO) 0.2 K/uL (0.4-2.0); MONOCYTES % (AUTO) 3.2 (0-10); NEUTROPHILS # (AUTO) 5.2 K/ul (2.0-6.9); NEUTROPHILS % (AUTO) 88.5; PLATELET COUNT 179 10^3/uL (140-440); RED BLOOD COUNT 3.86 10^6/ul (4.70-6.10); WHITE BLOOD COUNT 5.86 K/ul (4.2-10.2)
[2017-03-17 05:54] LABS: ALBUMIN 3.1 g/dL (3.4-5.0); ALBUMIN/GLOBULIN RATIO 0.94; ANION GAP 15.4; BILIRUBIN,TOTAL 0.12 mg/dL (0.00-1.20); BUN/CREATININE RATIO 17.44; CALCIUM 9.1 mg/dL (8.2-10.2); CREATININE 0.86 mg/dL (0.60-1.10); POTASSIUM 3.4 mmol/L (3.5-5.1); TOTAL PROTEIN 6.4 g/dL (5.8-8.1)
[2017-03-17] MEDS: PRILOSEC PO SCH (06:19)
[2017-03-17] MEDS: SYNTHROID PO SCH (06:19)
[2017-03-17] MEDS: CARAFATE PO SCH ×4 (06:19→21:07)
[2017-03-17] MEDS: SOLU-MEDROL 125 MG IVP SCH ×3 (06:19→20:57)
[2017-03-17] MEDS: ASPIRIN EC PO SCH (09:05)
[2017-03-17] MEDS: CARDIZEM PO SCH ×2 (09:06→21:06)
[2017-03-17] MEDS: HYDROCHLOROTHIAZIDE PO SCH (09:06)
[2017-03-17] MEDS: FERROUS SULFATE PO SCH ×2 (09:06→21:06)
[2017-03-17] MEDS: DALIRESP PO SCH (09:06)
[2017-03-17] MEDS: LOVENOX SUBCUT SCH (09:07)
[2017-03-17] MEDS: LAMICTAL PO SCH ×2 (09:07→21:07)
[2017-03-17] MEDS: NEURONTIN PO SCH ×2 (09:08→21:07)
[2017-03-17] MEDS: SYMBICORT 160-4.5 MCG INHALER IH SCH ×2 (09:09→21:06)
[2017-03-17] MEDS: VITAMIN D PO SCH (09:09)
[2017-03-17] MEDS: ZITHROMAX PO SCH (09:09)
[2017-03-17] MEDS: PRIMIDONE 50 MG PO SCH ×3 (09:09→21:08)
[2017-03-17] MEDS: ZYPREXA PO SCH ×2 (09:10→21:07)
[2017-03-17] MEDS ORDERED: K-DUR ONE (09:14)
[2017-03-17] MEDS: K-DUR PO SCH ×2 (09:16→17:45)
[2017-03-17] MEDS: ATIVAN PO SCH ×3 (09:16→21:07)
--- NOTE | 2017-03-17 10:54 | PCM.PROG ---
Attending Provider: ATTENDING PROVIDER: Dr. MARLENY WELLER DATE OF SERVICE: 03/17/17 SUBJECTIVE: This 71 year old WHITE/ M was hospitalized 03/16/17. The patient is hospitalized with pneumonia. The patient is still coughing up green sputum. No fever, no chills. No PND, no orthopnea. REVIEW OF SYSTEMS: CONSTITUTIONAL: No night sweats. No fatigue, malaise, lethargy. No fever or chills. HEENT: Eyes: No visual changes. No eye pain. No eye discharge. ENT: No runny nose. No epistaxis. No sinus pain. No odynophagia. No congestion. RESPIRATORY: Cough and congestion. No hemoptysis. No shortness of breath. CARDIOVASCULAR: No angina symptoms. No CHF symptoms. No atypical chest pain for CAD. No palpitations. No orthopnea.. GASTROINTESTINAL: No abdominal pain. No nausea or vomiting. No diarrhea or constipation. No hematemesis. No hematochezia. GENITOURINARY: No urgency. No frequency. No dysuria. No hematuria. No obstructive symptoms. No discharge. No pain. No significant abnormal bleeding. MUSCULOSKELETAL: No musculoskeletal pain; no joint swelling. NEUROLOGICAL: Awake, alert, oriented to time, place and person. No headache. No neck pain. No syncope. No seizures. No dizziness. PSYCHIATRIC: Not anxious. No depression. No suicidal thoughts. No homicidal thoughts. SKIN: No rash. No lesions. No wounds. ENDOCRINE: No unexplained weight loss. No weight gain. HEMATOLOGIC/LYMPHATIC: No anemia. No purpura. No petechiae. No prolonged or excessive bleeding. No palpable lymph nodes. PHYSICAL EXAMINATION: GENERAL: The patient is awake, alert and oriented, lying in bed in no distress. VITAL SIGNS: Temperature 97.6 F, Pulse 71, Respiratory Rate 20, BP 126/80, Pulse Ox 89% HEENT: Head normocephalic, atraumatic. Eyes: Extraocular muscles are intact. Pupils are equal, round and reactive to light and accommodation. Ears: No lesions. Nose appeared normal. Throat: No exudate or erythema. NECK: Supple. No JVD, no carotid bruit. No lymphadenopathy or thyromegaly. LUNGS: Decreased breath sounds. Clear to auscultation. Percussion note normal. Chest symmetrical. HEART: S1, S2, no S3. No murmurs. No cyanosis or clubbing. No ascites. Pulses: Dorsalis pedis and posterior tibial pulses +1 to +2 both sides. ABDOMEN: Soft. Non-tender. Bowel sounds active. No CVA tenderness. No mass felt. EXTREMITIES: No edema. Full range of motion of all extremities, equal. NEUROLOGIC: No focal deficit. Cranial nerves II through XII are grossly intact. No headache, no double vision or headache. SKIN: Not dry. Intact. Turgor-normal. LYMPHATIC: No palpable lymph nodes/no lymphedema. MUSCULOSKELETAL: Normal joints with no swelling. Muscle tone is normal. LAB REVIEW: 03/17/17 04:15 03/17/17 04:15 03/17/17 04:15: Sodium 134 L, Potassium 3.4 L, Chloride 93 L, Carbon Dioxide 29 , Anion Gap 15.4, BUN 15, Creatinine 0.86, Estimated GFR (MDRD) 87.00, BUN/ Creatinine Ratio 17.44, Glucose 220 H, Calcium 9.1, Total Bilirubin 0.12, AST 14 L, ALT 11 L, Alkaline Phosphatase 47 L, Total Protein 6.4, Albumin 3.1 L, Globulin 3.3, Albumin/Globulin Ratio 0.94 03/17/17 04:15: WBC 5.86, RBC 3.86 L, Hgb 12.4 L, Hct 36.4 L, MCV 94.3 H, MCH 32.1 H, MCHC 34.1, RDW Coeff of Evan 14.4, Plt Count 179, Immature Gran % (Auto) 0.3, Neut % (Auto) 88.5, Lymph % (Auto) 8.0 L, [place] % (Auto) 3.2, Eos % (Auto) 0.0, Baso % (Auto) 0.0, Immature Gran # (Auto) 0.0, Neut # 5.2, Lymph # 0.5 L, [place] # 0.2 L, Eos # 0.0, Baso # 0.0 ASSESSMENT: 1. PNEUMONIA, BILATERAL 2. SEVERE COPD 3. SMOKER PLAN: 1. Counseling done for smoking cessation. 2. 20 mEq p.o. twice a day potassium. Plan and coordination of the patient's care discussed in the presence of Congressional Assistant and nurse. CONDITION: Stable SCRIBED BY: SANDY CASANOVA Float Operator scribed while in presence of service performed by Dr. MARLENY WELLER on 03/17/17 ([id number])
[2017-03-17] MEDS: ZOCOR PO SCH (17:45)
[2017-03-17] MEDS: FLOMAX PO SCH (17:45)
[2017-03-17] MEDS: ROCEPHIN 1 GM in SODIUM CHLORIDE 50 ML IV SCH (21:06)
[2017-03-18] MEDS: DUONEB NEB SCH ×3 (05:26→16:42)
[2017-03-18] MEDS: SOLU-MEDROL 125 MG IVP SCH ×3 (05:56→20:28)
[2017-03-18] MEDS: CARAFATE PO SCH ×4 (05:57→20:30)
[2017-03-18] MEDS: PRILOSEC PO SCH (05:57)
[2017-03-18] MEDS: SYNTHROID PO SCH (05:57)
--- NOTE | 2017-03-18 07:36 | PN ---
DATE OF SERVICE: 03/16/17 SUBJECTIVE: The patient was hospitalized today with bilateral pneumonia. The patient has cough and congestion and poor breath sounds on physical exams and poor lung air entry. The patient is on steroids, antibiotics, NEBS treatment. The patient is strongly advised to quit smoking. He has been sneaking around. Vital signs are stable with temperature 97.8, pulse 70, respiratory rate 18, blood pressure 110/ 60 and pulse ox 92% with 2 liters. CONDITION: Stable The patient was seen and examined with Nurse Practitioner. TIME SPENT: More than 30 minutes. Plan and coordination of the patient's care discussed in the presence of nurse. SUSANNE
[2017-03-18 07:53] LABS: HEMATOCRIT 39.6 % (42.0-52.0); HEMOGLOBIN 13.5 g/dl (14.0-18.0); IMMATURE GRANULOCYTE % (AUTO) 0.7 % (0.0-5.0); LYMPHOCYTES # (AUTO) 0.3 K/uL (0.60-3.4); LYMPHOCYTES % (AUTO) 5.6 (10.0-50.0); MEAN CORPUSCULAR HEMOGLOBIN 32.2 pg (27.0-31.0); MEAN CORPUSCULAR HGB CONC 34.1 (31.8-35.4); MEAN CORPUSCULAR VOLUME 94.5 fl (80.0-94.0); MONOCYTES # (AUTO) 0.2 K/uL (0.4-2.0); MONOCYTES % (AUTO) 3.1 (0-10); NEUTROPHILS # (AUTO) 5.5 K/ul (2.0-6.9); NEUTROPHILS % (AUTO) 90.6; PLATELET COUNT 182 10^3/uL (140-440); RED BLOOD COUNT 4.19 10^6/ul (4.70-6.10); WHITE BLOOD COUNT 6.09 K/ul (4.2-10.2)
[2017-03-18 08:13] LABS: ALBUMIN 3.4 g/dL (3.4-5.0); ALBUMIN/GLOBULIN RATIO 1.06; ANION GAP 15.3; BILIRUBIN,TOTAL 0.16 mg/dL (0.00-1.20); CALCIUM 9.5 mg/dL (8.2-10.2); CREATININE 0.78 mg/dL (0.60-1.10); POTASSIUM 3.3 mmol/L (3.5-5.1); TOTAL PROTEIN 6.6 g/dL (5.8-8.1)
[2017-03-18] MEDS: CARDIZEM PO SCH ×2 (08:53→20:31)
[2017-03-18] MEDS: NEURONTIN PO SCH ×2 (08:53→20:30)
[2017-03-18] MEDS: FERROUS SULFATE PO SCH ×2 (08:53→20:30)
[2017-03-18] MEDS: K-DUR PO SCH ×2 (08:53→17:04)
[2017-03-18] MEDS: ZITHROMAX PO SCH (08:53)
[2017-03-18] MEDS: ASPIRIN EC PO SCH (08:53)
[2017-03-18] MEDS: LAMICTAL PO SCH ×2 (08:54→20:30)
[2017-03-18] MEDS: VITAMIN D PO SCH (08:54)
[2017-03-18] MEDS: HYDROCHLOROTHIAZIDE PO SCH (08:54)
[2017-03-18] MEDS: DALIRESP PO SCH (08:54)
[2017-03-18] MEDS: LOVENOX SUBCUT SCH (08:54)
[2017-03-18] MEDS: ZYPREXA PO SCH ×2 (08:54→20:31)
[2017-03-18] MEDS: SYMBICORT 160-4.5 MCG INHALER IH SCH ×2 (09:05→20:30)
[2017-03-18] MEDS: PRIMIDONE 50 MG PO SCH ×3 (09:05→20:39)
[2017-03-18] MEDS: ATIVAN PO SCH ×3 (09:05→20:30)
[2017-03-18 09:48] LABS: BUN/CREATININE RATIO 23.07
--- NOTE | 2017-03-18 11:07 | HP ---
DATE OF SERVICE: 03/16/17 HISTORY OF PRESENT ILLNESS: This is a 71-year-old white male with history of severe COPD who presented to the emergency room complaining of shortness of breath. He stated he almost had a syncopal episode after exerting himself today. Chest x-ray revealed pneumonia. 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 No night sweats. No fever or chills. HEENT: Eyes: No visual changes. No eye pain. No eye discharge or redness. ENT: No runny nose. No nasal congestion. No epistaxis. No sinus pain. No sore throat. No odynophagia. No ear pain. No congestion. RESPIRATORY: Positive for cough, wheeze. No hemoptysis. Positive for shortness of breath. CARDIOVASCULAR: No angina symptoms. No CHF symptoms. No atypical chest pain for CAD. No palpitations. No orthopnea. GASTROINTESTINAL: Good appetite. No abdominal pain. No nausea or vomiting. No diarrhea or constipation. No hematemesis. No hematochezia. GENITOURINARY: No urgency. No increase in frequency. No dysuria. No hematuria. No obstructive symptoms. No discharge. No pain. No significant abnormal bleeding. MUSCULOSKELETAL: Positive for generalized weakness due to severe shortness of breath. NEUROLOGICAL: Alert, oriented. No headache. No neck pain. No syncope. No seizures. No dizziness. PSYCHIATRIC: Not anxious. No depression. No suicidal thoughts. No homicidal thoughts. SKIN: Intact. No rash. No lesions. No wounds. ENDOCRINE: No unexplained weight loss. No weight gain. HEMATOLOGIC/LYMPHATIC: No anemia. No purpura. No petechiae. No prolonged or excessive bleeding. No palpable lymph nodes. PERSONAL/FAMILY/SOCIAL HISTORY: The patient is a long-term smoker with severe COPD. He states that he has quit smoking times two months. He is and currently lives with his sister, Disha, who is also a heavy smoker and has lung disease. MEDICATIONS: Ferrous Sulfate 325 mg b.i.d. Carafate 1 gm t.i.d. Prilosec 20 mg b.i.d. [place] 5/325 mg b.i.d. Cardizem 60 mg b.i.d. Hydrochlorothiazide 25 mg daily Neurontin 300 mg b.i.d. Flomax 0.5 mg daily Simvastatin 20 mg daily Primadone 50 mg t.i.d. Synthroid 75 mcg daily Daliresp 500 mcg daily Ativan 0.5 mg t.i.d. Zyprexa 2.5 mg two tablets daily Symbicort 2 puffs two times daily Miralax as needed ALLERGIES: CODEINE AND REGLAN PHYSICAL EXAMINATION: VITAL SIGNS: Temperature 98.5, heart rate 78, respirations 28, BP 125/81, pulse ox 97%. GENERAL: The patient is well-appearing in mild distress. HEENT: Head normocephalic, atraumatic. Eyes: Extraocular muscles are intact. Pupils are equal, round and reactive to light and accommodation. Ears: TMs within normal limits. No lesions. Nose appeared normal. Throat: No exudate or erythema. NECK: Supple. No JVD, no carotid bruit. No lymphadenopathy or thyromegaly. LUNGS: Severely diminished breath sounds with bilateral rhonchi, inspiratory and expiratory wheeze bilaterally. Percussion note normal. Chest symmetrical. HEART: Regular rate and rhythm. S1, S2, no S3. No murmurs, clicks or rubs. No cyanosis or clubbing. No ascites. Pulses: Dorsalis pedis and posterior tibial pulses +1 to +2 both sides. ABDOMEN: Soft. Nontender. Bowel sounds active times four quadrants. No CVA tenderness. No mass felt. EXTREMITIES: No clubbing, no cyanosis. No joint swelling. No redness, no edema. No calf tenderness. Negative Bessy's sign bilaterally. Full range of motion of all extremities, equal. NEUROLOGIC: No focal deficit. Cranial nerves II through XII are grossly intact. No headache, no double vision or headache. The patient is alert and oriented times three. SKIN: Clean, dry, intact and warm. Turgor - normal. LYMPHATIC: No palpable lymph nodes/no lymphedema. MUSCULOSKELETAL: Normal joints with no swelling. Muscle tone is normal. LABS: White count 7.17, hemoglobin 14.3, hematocrit 42.5, platelets 185. Sodium 139, potassium 3.3, chloride 93, BUN 8, creatinine 0.85, glucose 86. Total CK 87, AST 14, ALT 12, alkaline phosphatase 60, troponin 0.02, BNP 11, total protein 7.2. ABGs on 3L pH 7.393, pc02 65.9, p02 60, base excess of 15, bicarb 40.2, TC02 42, 02 sat 89. D. dimer 451, rapid flu A & B negative. CT scan of the chest shows atelectasis and/or pneumonia at both lung bases, ectatic ascending aorta, marked emphysema. ASSESSMENT: 1. BILATERAL PNEUMONIA 2. SEVERE COPD, OXYGEN DEPENDENT 3. SHORTNESS OF BREATH 4. ANEMIA PLAN: 1. Admit 2. Routine telemetry orders 3. CBC, CMP today and daily 4. Solu-Medrol 125 mg q.8hr IV 5. Rocephin 1 gm IV daily 6. Zithromax 500 mg p.o. daily times three days 7. Duonebs q.6hr scheduled 8. Continue home medications 9. Will follow closely TIME SPENT: More than 70 minutes. MTDD
--- NOTE | 2017-03-18 11:47 | PCM.PROG ---
Attending Provider: ATTENDING PROVIDER: Dr. MARLENY WELLER This patient is seen with Amber Guadalupe, Nurse Practitioner. DATE OF SERVICE: 03/18/17 SUBJECTIVE: This 71 year old WHITE/ M was hospitalized 03/16/17. The patient is lying in bed, alert. Shortness of breath improved. Cough slightly improved, will do repeat chest x-ray today. REVIEW OF SYSTEMS: CONSTITUTIONAL: No night sweats. No fatigue, malaise, lethargy. No fever or chills. HEENT: Eyes: No visual changes. No eye pain. No eye discharge. ENT: No runny nose. No epistaxis. No sinus pain. No odynophagia. No congestion. RESPIRATORY: Cough and congestion. No hemoptysis. Shortness of breath. CARDIOVASCULAR: No angina symptoms. No CHF symptoms. No atypical chest pain for CAD. No palpitations. No orthopnea.. GASTROINTESTINAL: No abdominal pain. No nausea or vomiting. No diarrhea or constipation. No hematemesis. No hematochezia. GENITOURINARY: No urgency. No frequency. No dysuria. No hematuria. No obstructive symptoms. No discharge. No pain. No significant abnormal bleeding. MUSCULOSKELETAL: No musculoskeletal pain; no joint swelling. NEUROLOGICAL: Awake, alert, oriented to time, place and person. No headache. No neck pain. No syncope. No seizures. No dizziness. PSYCHIATRIC: Not anxious. No depression. No suicidal thoughts. No homicidal thoughts. SKIN: No rash. No lesions. No wounds. ENDOCRINE: No unexplained weight loss. No weight gain. HEMATOLOGIC/LYMPHATIC: No anemia. No purpura. No petechiae. No prolonged or excessive bleeding. No palpable lymph nodes. PHYSICAL EXAMINATION: GENERAL: The patient is awake, alert and oriented, lying in bed in no distress. VITAL SIGNS: Temperature 97.8 F, Pulse 70, Respiratory Rate 18, BP 116/70, Pulse Ox 94% HEENT: Head normocephalic, atraumatic. Eyes: Extraocular muscles are intact. Pupils are equal, round and reactive to light and accommodation. Ears: No lesions. Nose appeared normal. Throat: No exudate or erythema. NECK: Supple. No JVD, no carotid bruit. No lymphadenopathy or thyromegaly. LUNGS: Diminished breath sounds bilaterally. Mild expiratory wheeze. Percussion note normal. Chest symmetrical. HEART: S1, S2, no S3. No murmurs. No cyanosis or clubbing. No ascites. Pulses: Dorsalis pedis and posterior tibial pulses +1 to +2 both sides. ABDOMEN: Soft. Non-tender. Bowel sounds active. No CVA tenderness. No mass felt. EXTREMITIES: No edema. Full range of motion of all extremities, equal. NEUROLOGIC: No focal deficit. Cranial nerves II through XII are grossly intact. No headache, no double vision or headache. SKIN: Not dry. Intact. Turgor-normal. LYMPHATIC: No palpable lymph nodes/no lymphedema. MUSCULOSKELETAL: Normal joints with no swelling. Muscle tone is normal. LAB REVIEW: 03/18/17 07:35 03/17/17 04:15 03/18/17 07:35: WBC 6.09, RBC 4.19 L, Hgb 13.5 L, Hct 39.6 L, MCV 94.5 H, MCH 32.2 H, MCHC 34.1, RDW Coeff of Evan 14.7, Plt Count 182, Immature Gran % (Auto) 0.7, Neut % (Auto) 90.6, Lymph % (Auto) 5.6 L, Crenshaw % (Auto) 3.1, Eos % (Auto) 0.0, Baso % (Auto) 0.0, Immature Gran # (Auto) 0.0, Neut # 5.5, Lymph # 0.3 L, Crenshaw # 0.2 L, Eos # 0.0, Baso # 0.0 ASSESSMENT: 1. PNEUMONIA, BILATERAL 2. SEVERE COPD 3. SMOKER PLAN: 1. Repeat chest x-ray 2. CBC and CMP today Plan and coordination of the patient's care discussed in the presence of Marketing Analyst and nurse. CONDITION: Stable SCRIBED BY: SANDY CASANOVA Marketing Editor scribed while in presence of service performed by Dr. Weller/Amber Guadalupe APRN on 03/18/17 ([id number])
--- NOTE | 2017-03-18 12:32 | DI ---
EXAM: Single view of the chest. History: Cough, short of breath Comparison: Chest radiograph 01/13/2017, chest CT 03/15/2017 Findings: Severe emphysema again identified. Heart size is within normal limits. No pneumothorax. No acute osseous abnormalities. Atherosclerotic vascular calcifications. Basilar subsegmental atel ectasis or pneumonia not significantly changed. Trace left pleural effusion. No acute osseous abnor malities. Impression: No significant interval change in the basilar subsegmental atelectasis or pneumonia. Tr saba left pleural effusion. Severe emphysema
[2017-03-18] MEDS: FLOMAX PO SCH (17:04)
[2017-03-18] MEDS: ZOCOR PO SCH (17:04)
[2017-03-18] MEDS: ROCEPHIN 1 GM in SODIUM CHLORIDE 50 ML IV SCH (20:29)
[2017-03-19] MEDS: DUONEB NEB SCH ×5 (00:12→22:57)
[2017-03-19 05:13] LABS: HEMATOCRIT 40.9 % (42.0-52.0); HEMOGLOBIN 13.5 g/dl (14.0-18.0); IMMATURE GRANULOCYTE % (AUTO) 0.6 % (0.0-5.0); LYMPHOCYTES # (AUTO) 0.5 K/uL (0.60-3.4); LYMPHOCYTES % (AUTO) 7.7 (10.0-50.0); MEAN CORPUSCULAR HEMOGLOBIN 31.8 pg (27.0-31.0); MEAN CORPUSCULAR VOLUME 96.2 fl (80.0-94.0); MONOCYTES # (AUTO) 0.3 K/uL (0.4-2.0); MONOCYTES % (AUTO) 4.3 (0-10); NEUTROPHILS # (AUTO) 5.7 K/ul (2.0-6.9); NEUTROPHILS % (AUTO) 87.4; PLATELET COUNT 192 10^3/uL (140-440); RED BLOOD COUNT 4.25 10^6/ul (4.70-6.10); WHITE BLOOD COUNT 6.53 K/ul (4.2-10.2)
[2017-03-19 05:37] LABS: ALBUMIN 3.2 g/dL (3.4-5.0); ALBUMIN/GLOBULIN RATIO 1.03; ANION GAP 13.6; BILIRUBIN,TOTAL 0.13 mg/dL (0.00-1.20); BUN/CREATININE RATIO 26.74; CALCIUM 9.3 mg/dL (8.2-10.2); CREATININE 0.86 mg/dL (0.60-1.10); POTASSIUM 3.6 mmol/L (3.5-5.1); TOTAL PROTEIN 6.3 g/dL (5.8-8.1)
[2017-03-19] MEDS: SYNTHROID PO SCH (05:41)
[2017-03-19] MEDS: CARAFATE PO SCH ×4 (05:41→20:56)
[2017-03-19] MEDS: SOLU-MEDROL 125 MG IVP SCH ×2 (05:41→20:55)
[2017-03-19] MEDS: PRILOSEC PO SCH (05:41)
[2017-03-19] MEDS: SYMBICORT 160-4.5 MCG INHALER IH SCH ×2 (09:31→20:57)
[2017-03-19] MEDS: ASPIRIN EC PO SCH (09:32)
[2017-03-19] MEDS: PRIMIDONE 50 MG PO SCH ×3 (09:32→20:56)
[2017-03-19] MEDS: CARDIZEM PO SCH ×2 (09:32→20:56)
[2017-03-19] MEDS: K-DUR PO SCH ×2 (09:32→17:08)
[2017-03-19] MEDS: FERROUS SULFATE PO SCH ×2 (09:32→20:56)
[2017-03-19] MEDS: ZYPREXA PO SCH ×2 (09:32→20:55)
[2017-03-19] MEDS: DALIRESP PO SCH (09:32)
[2017-03-19] MEDS: ZITHROMAX PO SCH (09:32)
[2017-03-19] MEDS: VITAMIN D PO SCH (09:33)
[2017-03-19] MEDS: HYDROCHLOROTHIAZIDE PO SCH (09:33)
[2017-03-19] MEDS: ATIVAN PO SCH ×3 (09:33→20:55)
[2017-03-19] MEDS: LAMICTAL PO SCH ×2 (09:33→20:55)
[2017-03-19] MEDS: NEURONTIN PO SCH ×2 (09:33→20:56)
--- NOTE | 2017-03-19 09:33 | PCM.PROG ---
Attending Provider: ATTENDING PROVIDER: Dr. MARLENY WELLER This patient is seen with Amber Guadalupe, Nurse Practitioner. DATE OF SERVICE: 03/19/17 SUBJECTIVE: This 71 year old WHITE/ M was hospitalized 03/16/17. The patient is sitting up in bed, is alert. Breathing improved. The patient is complaining of bloating. No abdominal pain. REVIEW OF SYSTEMS: CONSTITUTIONAL: No night sweats. No fatigue, malaise, lethargy. No fever or chills. HEENT: Eyes: No visual changes. No eye pain. No eye discharge. ENT: No runny nose. No epistaxis. No sinus pain. No odynophagia. No congestion. RESPIRATORY: Cough and congestion. Shortness of breath. No hemoptysis. CARDIOVASCULAR: No angina symptoms. No CHF symptoms. No atypical chest pain for CAD. No palpitations. No orthopnea.. GASTROINTESTINAL: Positive for abdominal bloating. No abdominal pain. No nausea or vomiting. No diarrhea or constipation. No hematemesis. No hematochezia. GENITOURINARY: No urgency. No frequency. No dysuria. No hematuria. No obstructive symptoms. No discharge. No pain. No significant abnormal bleeding. MUSCULOSKELETAL: No musculoskeletal pain; no joint swelling. NEUROLOGICAL: Awake, alert, oriented to time, place and person. No headache. No neck pain. No syncope. No seizures. No dizziness. PSYCHIATRIC: Not anxious. No depression. No suicidal thoughts. No homicidal thoughts. SKIN: No rash. No lesions. No wounds. ENDOCRINE: No unexplained weight loss. No weight gain. HEMATOLOGIC/LYMPHATIC: No anemia. No purpura. No petechiae. No prolonged or excessive bleeding. No palpable lymph nodes. PHYSICAL EXAMINATION: GENERAL: The patient is awake, alert and oriented, lying/sitting in bed in no distress. VITAL SIGNS: Temperature 97.7 F, Pulse 102, Respiratory Rate 24, BP 112/68, Pulse Ox 95% HEENT: Head normocephalic, atraumatic. Eyes: Extraocular muscles are intact. Pupils are equal, round and reactive to light and accommodation. Ears: No lesions. Nose appeared normal. Throat: No exudate or erythema. NECK: Supple. No JVD, no carotid bruit. No lymphadenopathy or thyromegaly. LUNGS: Severely diminished breath sounds bilaterally. Clear to auscultation. Percussion note normal. Chest symmetrical. HEART: S1, S2, no S3. No murmurs. No cyanosis or clubbing. No ascites. Pulses: Dorsalis pedis and posterior tibial pulses +1 to +2 both sides. ABDOMEN: Distended but soft and nontender. Bowel sounds active. No CVA tenderness. No mass felt. EXTREMITIES: No edema. Full range of motion of all extremities, equal. NEUROLOGIC: No focal deficit. Cranial nerves II through XII are grossly intact. No headache, no double vision or headache. SKIN: Not dry. Intact. Turgor-normal. LYMPHATIC: No palpable lymph nodes/no lymphedema. MUSCULOSKELETAL: Normal joints with no swelling. Muscle tone is normal. LAB REVIEW: 03/19/17 04:55 03/19/17 04:55 03/19/17 04:55: Sodium 141, Potassium 3.6, Chloride 98, Carbon Dioxide 33 H, Anion Gap 13.6, BUN 23 H, Creatinine 0.86, Estimated GFR (MDRD) 87.00, BUN/ Creatinine Ratio 26.74, Glucose 233 H, Calcium 9.3, Total Bilirubin 0.13, AST 10 L, ALT 12, Alkaline Phosphatase 45 L, Total Protein 6.3, Albumin 3.2 L, Globulin 3.1, Albumin/Globulin Ratio 1.03 03/19/17 04:55: WBC 6.53, RBC 4.25 L, Hgb 13.5 L, Hct 40.9 L, MCV 96.2 H, MCH 31.8 H, MCHC 33.0, RDW Coeff of Evan 14.7, Plt Count 192, Immature Gran % (Auto) 0.6, Neut % (Auto) 87.4, Lymph % (Auto) 7.7 L, Bibb % (Auto) 4.3, Eos % (Auto) 0.0, Baso % (Auto) 0.0, Immature Gran # (Auto) 0.0, Neut # 5.7, Lymph # 0.5 L, Bibb # 0.3 L, Eos # 0.0, Baso # 0.0 03/18/17 07:35: Sodium 139, Potassium 3.3 L, Chloride 95 L, Carbon Dioxide 32 H , Anion Gap 15.3, BUN 18, Creatinine 0.78, Estimated GFR (MDRD) 98.00, BUN/ Creatinine Ratio 23.07, Glucose 198 H, Calcium 9.5, Total Bilirubin 0.16, AST 12 L, ALT 13, Alkaline Phosphatase 46 L, Total Protein 6.6, Albumin 3.4, Globulin 3.2, Albumin/Globulin Ratio 1.06 ASSESSMENT: 1. ABDOMINAL BLOATING 2. PNEUMONIA, BILATERAL 3. SEVERE COPD 4. SMOKER PLAN: 1. CT scan of abdomen without contrast 2. Bloating likely due to continuous oxygen 3. Decrease Solu-Medrol Plan and coordination of the patient's care discussed in the presence of Employment Service Specialist and nurse. CONDITION: Stable SCRIBED BY: SANDY CASANOVA Cleaner And Presser scribed while in presence of service performed by Dr. Weller/Amber Guadalupe APRN on 03/19/17 ([id number])
[2017-03-19] MEDS: LOVENOX SUBCUT SCH (09:36)
--- NOTE | 2017-03-19 16:34 | CT ---
EXAM: CT ABDOMEN AND PELVIS HISTORY: Abdominal bloating and pain TECHNIQUE: CT abdomen and pelvis without intravenous contrast. Images were reconstructed using 5 mm section thickness. Reformations were prepared. COMPARISON: 11/23/2016 FINDINGS: Diagnostic limitations exist without including contrast enhanced images. No focal hepatic or splenic lesions identified. Gallbladder is absent. Early fatty lobulation of the pancreas. Adrenal glands appear normal. There is mild nonspecific bilateral perinephric fat stranding which is new since the previous exam. Tiny calculus within the inferior left kidney versus vascular calcification. No hyd ronephrosis or evidence of ureteral calculus. Moderately severe atherosclerotic disease. There is e ither fusiform or atypical saccular aneurysmal caliber of the infrarenal aorta, short segment measuri ng up to 3.7 cm stable since previous exam. No evidence of aortic leakage is identified. No gastric distension. Normal appendix. Scattered colonic diverticulosis becoming more moderate at th e distal descending and sigmoid levels. Normal bowel gas pattern. Urinary bladder is unremarkable. There is mild enlargement of the prostate. No ascites. There is exuberant intraperitoneal fat consi stent with obesity. No ventral abdominal wall hernia. The bones reveal early degenerative facet disease at the lumbosacr al junction. Lung bases reveal evidence of severe pulmonary emphysema. No pneumoperitoneum. IMPRESSION: 1. Nonspecific bilateral perinephric fat stranding without evidence of hydronephrosis or ureteral ob struction. Correlate clinically for any evidence of renal collecting system or parenchymal infection . 2. Severe atherosclerotic disease. There is either fusiform or atypical saccular aneurysmal caliber of the infrarenal aorta, short segment measuring up to 3.7 cm stable since previous exam. No eviden ce of aortic leakage is identified. 3. Colonic diverticulosis without diverticulitis. 4. Mild prostate enlargement. 5. Exuberant intraperitoneal fat consistent with obesity. No ascites. 6. Severe pulmonary emphysema seen in the lung bases.
[2017-03-19] MEDS: FLOMAX PO SCH (17:08)
[2017-03-19] MEDS: ZOCOR PO SCH (17:09)
[2017-03-19] MEDS: ROCEPHIN 1 GM in SODIUM CHLORIDE 50 ML IV SCH (20:56)
[2017-03-19] MEDS: NORCO 5-325 PO PRN (20:56)
[2017-03-20] MEDS: DUONEB NEB SCH ×3 (05:08→17:10)
[2017-03-20 05:15] LABS: HEMOGLOBIN 13.5 g/dl (14.0-18.0); IMMATURE GRANULOCYTE % (AUTO) 0.9 % (0.0-5.0); LYMPHOCYTES # (AUTO) 0.3 K/uL (0.60-3.4); LYMPHOCYTES % (AUTO) 4.5 (10.0-50.0); MEAN CORPUSCULAR HEMOGLOBIN 31.7 pg (27.0-31.0); MEAN CORPUSCULAR HGB CONC 32.1 (31.8-35.4); MEAN CORPUSCULAR VOLUME 98.6 fl (80.0-94.0); MONOCYTES # (AUTO) 0.2 K/uL (0.4-2.0); MONOCYTES % (AUTO) 2.6 (0-10); PLATELET COUNT 203 10^3/uL (140-440); RED BLOOD COUNT 4.26 10^6/ul (4.70-6.10); WHITE BLOOD COUNT 6.49 K/ul (4.2-10.2)
[2017-03-20] MEDS: PRILOSEC PO SCH (05:39)
[2017-03-20] MEDS: CARAFATE PO SCH ×4 (05:39→22:05)
[2017-03-20] MEDS: SYNTHROID PO SCH (05:39)
[2017-03-20 05:40] LABS: ALBUMIN/GLOBULIN RATIO 0.97; ANION GAP 14.4; BILIRUBIN,TOTAL 0.12 mg/dL (0.00-1.20); BUN/CREATININE RATIO 26.74; CALCIUM 8.9 mg/dL (8.2-10.2); CREATININE 0.86 mg/dL (0.60-1.10); POTASSIUM 4.4 mmol/L (3.5-5.1); TOTAL PROTEIN 6.1 g/dL (5.8-8.1)
[2017-03-20] MEDS: ASPIRIN EC PO SCH (09:30)
[2017-03-20] MEDS: LAMICTAL PO SCH ×2 (09:31→22:04)
[2017-03-20] MEDS: K-DUR PO SCH ×2 (09:31→17:08)
[2017-03-20] MEDS: ZYPREXA PO SCH ×2 (09:31→22:05)
[2017-03-20] MEDS: CARDIZEM PO SCH ×2 (09:31→22:05)
[2017-03-20] MEDS: DALIRESP PO SCH (09:32)
[2017-03-20] MEDS: FERROUS SULFATE PO SCH ×2 (09:32→22:04)
[2017-03-20] MEDS: HYDROCHLOROTHIAZIDE PO SCH (09:32)
[2017-03-20] MEDS: VITAMIN D PO SCH (09:33)
[2017-03-20] MEDS: ZITHROMAX PO SCH (09:33)
[2017-03-20] MEDS: NEURONTIN PO SCH ×2 (09:33→22:05)
[2017-03-20] MEDS: LOVENOX SUBCUT SCH (09:34)
[2017-03-20] MEDS: SOLU-MEDROL 125 MG IVP SCH ×2 (09:37→22:04)
[2017-03-20] MEDS: ATIVAN PO SCH ×3 (10:09→22:05)
[2017-03-20] MEDS: PRIMIDONE 50 MG PO SCH ×3 (10:10→22:07)
[2017-03-20] MEDS: SYMBICORT 160-4.5 MCG INHALER IH SCH ×2 (10:10→22:10)
[2017-03-20] MEDS: FLOMAX PO SCH (17:07)
[2017-03-20] MEDS: ZOCOR PO SCH (17:08)
[2017-03-20] MEDS: ROCEPHIN 1 GM in SODIUM CHLORIDE 50 ML IV SCH (22:04)
[2017-03-21] MEDS: DUONEB NEB SCH ×5 (00:12→23:20)
[2017-03-21 05:15] LABS: BASOPHILS % (AUTO) 0.3 % (0.0-3.0); HEMOGLOBIN 13.6 g/dl (14.0-18.0); IMMATURE GRANULOCYTE % (AUTO) 0.9 % (0.0-5.0); LYMPHOCYTES # (AUTO) 0.4 K/uL (0.60-3.4); LYMPHOCYTES % (AUTO) 5.7 (10.0-50.0); MEAN CORPUSCULAR HEMOGLOBIN 32.1 pg (27.0-31.0); MEAN CORPUSCULAR HGB CONC 32.4 (31.8-35.4); MEAN CORPUSCULAR VOLUME 99.1 fl (80.0-94.0); MONOCYTES # (AUTO) 0.2 K/uL (0.4-2.0); MONOCYTES % (AUTO) 2.5 (0-10); NEUTROPHILS # (AUTO) 6.2 K/ul (2.0-6.9); NEUTROPHILS % (AUTO) 90.6; PLATELET COUNT 184 10^3/uL (140-440); RED BLOOD COUNT 4.24 10^6/ul (4.70-6.10); WHITE BLOOD COUNT 6.81 K/ul (4.2-10.2)
[2017-03-21 05:51] LABS: ALBUMIN 2.9 g/dL (3.4-5.0); ALBUMIN/GLOBULIN RATIO 0.97; ANION GAP 12.6; BILIRUBIN,TOTAL 0.19 mg/dL (0.00-1.20); BUN/CREATININE RATIO 32.5; CREATININE 0.8 mg/dL (0.60-1.10); POTASSIUM 4.6 mmol/L (3.5-5.1); TOTAL PROTEIN 5.9 g/dL (5.8-8.1)
[2017-03-21] MEDS: CARAFATE PO SCH ×4 (06:14→22:28)
[2017-03-21] MEDS: PRILOSEC PO SCH (06:14)
[2017-03-21] MEDS: SYNTHROID PO SCH (06:14)
--- NOTE | 2017-03-21 09:06 | DI ---
EXAM: Single view chest COMPARISON: Chest Xray from 03/18/2017 HISTORY: Short of breath FINDINGS: There are patchy areas of air space density in both lung bases likely on the basis of atel ectasis bilaterally which is stable. There is probably a small effusion on the left. There is very e xtensive emphysematous change in the lung apices. There is no lobar infiltrate or failure or large e ffusion. Cardiac and mediastinal silhouettes show no acute abnormality. No acute soft tissue or osse ous abnormalities. IMPRESSION: 1. Stable chest with bibasilar atelectasis and small left effusion. 2. Advanced emphysematous changes.
[2017-03-21] MEDS: LOVENOX SUBCUT SCH (10:04)
[2017-03-21] MEDS: ZITHROMAX PO SCH (10:04)
[2017-03-21] MEDS: K-DUR PO SCH ×2 (10:04→16:29)
[2017-03-21] MEDS: HYDROCHLOROTHIAZIDE PO SCH (10:04)
[2017-03-21] MEDS: NEURONTIN PO SCH ×2 (10:04→22:28)
[2017-03-21] MEDS: DALIRESP PO SCH (10:05)
[2017-03-21] MEDS: FERROUS SULFATE PO SCH ×2 (10:05→22:28)
[2017-03-21] MEDS: ASPIRIN EC PO SCH (10:05)
[2017-03-21] MEDS: LAMICTAL PO SCH ×2 (10:05→22:28)
[2017-03-21] MEDS: CARDIZEM PO SCH ×2 (10:05→22:28)
[2017-03-21] MEDS: ZYPREXA PO SCH ×2 (10:05→22:28)
[2017-03-21] MEDS: SOLU-MEDROL 125 MG IVP SCH ×2 (10:06→22:20)
[2017-03-21] MEDS: VITAMIN D PO SCH (10:06)
[2017-03-21] MEDS: SYMBICORT 160-4.5 MCG INHALER IH SCH ×2 (10:07→22:27)
[2017-03-21] MEDS: ATIVAN PO SCH ×3 (10:43→22:28)
[2017-03-21] MEDS: PRIMIDONE 50 MG PO SCH ×3 (10:44→22:29)
[2017-03-21] MEDS: FLOMAX PO SCH (18:15)
[2017-03-21] MEDS: ZOCOR PO SCH (18:16)
[2017-03-21] MEDS: ROCEPHIN 1 GM in SODIUM CHLORIDE 50 ML IV SCH (22:24)
[2017-03-22 04:46] LABS: BASOPHILS % (AUTO) 0.1 % (0.0-3.0); HEMATOCRIT 42.4 % (42.0-52.0); HEMOGLOBIN 13.7 g/dl (14.0-18.0); IMMATURE GRANULOCYTE % (AUTO) 0.8 % (0.0-5.0); LYMPHOCYTES # (AUTO) 0.3 K/uL (0.60-3.4); LYMPHOCYTES % (AUTO) 2.8 (10.0-50.0); MEAN CORPUSCULAR HEMOGLOBIN 31.7 pg (27.0-31.0); MEAN CORPUSCULAR HGB CONC 32.3 (31.8-35.4); MEAN CORPUSCULAR VOLUME 98.1 fl (80.0-94.0); MONOCYTES # (AUTO) 0.3 K/uL (0.4-2.0); MONOCYTES % (AUTO) 2.4 (0-10); NEUTROPHILS # (AUTO) 9.6 K/ul (2.0-6.9); NEUTROPHILS % (AUTO) 93.9; PLATELET COUNT 188 10^3/uL (140-440); RED BLOOD COUNT 4.32 10^6/ul (4.70-6.10); WHITE BLOOD COUNT 10.24 K/ul (4.2-10.2)
[2017-03-22 05:09] LABS: ALBUMIN 2.8 g/dL (3.4-5.0); ALBUMIN/GLOBULIN RATIO 0.93; ANION GAP 14.5; BILIRUBIN,TOTAL 0.21 mg/dL (0.00-1.20); BUN/CREATININE RATIO 31.25; CALCIUM 8.8 mg/dL (8.2-10.2); CREATININE 0.8 mg/dL (0.60-1.10); POTASSIUM 4.5 mmol/L (3.5-5.1); TOTAL PROTEIN 5.8 g/dL (5.8-8.1)
[2017-03-22] MEDS: DUONEB NEB SCH ×2 (05:25→11:22)
[2017-03-22] MEDS: PRILOSEC PO SCH (05:58)
[2017-03-22] MEDS: SYNTHROID PO SCH (05:58)
[2017-03-22] MEDS: CARAFATE PO SCH ×2 (05:58→11:20)
[2017-03-22] MEDS: ZYPREXA PO SCH (08:40)
[2017-03-22] MEDS: LAMICTAL PO SCH (08:41)
[2017-03-22] MEDS: ZITHROMAX PO SCH (08:41)
[2017-03-22] MEDS: ATIVAN PO SCH ×2 (08:41→14:24)
[2017-03-22] MEDS: CARDIZEM PO SCH (08:41)
[2017-03-22] MEDS: HYDROCHLOROTHIAZIDE PO SCH (08:41)
[2017-03-22] MEDS: VITAMIN D PO SCH (08:41)
[2017-03-22] MEDS: DALIRESP PO SCH (08:41)
[2017-03-22] MEDS: K-DUR PO SCH (08:41)
[2017-03-22] MEDS: ASPIRIN EC PO SCH (08:41)
[2017-03-22] MEDS: FERROUS SULFATE PO SCH (08:41)
[2017-03-22] MEDS: NEURONTIN PO SCH (08:42)
[2017-03-22] MEDS: LOVENOX SUBCUT SCH (08:42)
[2017-03-22] MEDS: SYMBICORT 160-4.5 MCG INHALER IH SCH (08:42)
[2017-03-22] MEDS: PRIMIDONE 50 MG PO SCH ×2 (08:44→14:24)
[2017-03-22] MEDS: SOLU-MEDROL 125 MG IVP SCH (08:45)
--- NOTE | 2017-03-22 09:29 | PN ---
DATE OF SERVICE: 03/18/17 SUBJECTIVE: 71 year old white male hospitalized with pneumonia. The patient's condition is slowly improving. PHYSICAL EXAMINATION: HEENT: Head normocephalic, atraumatic. Eyes: Extraocular muscles are intact. Pupils are equal, round and reactive to light and accommodation. Ears: No lesions. Nose appeared normal. Throat: No exudate or erythema. NECK: Supple. No JVD, no carotid bruit. No lymphadenopathy or thyromegaly. LUNGS: More air entry. Clear to auscultation. Percussion note normal. Chest symmetrical. HEART: S1, S2, no S3. No murmurs. No cyanosis or clubbing. No ascites. Pulses: Dorsalis pedis and posterior tibial pulses +1 to +2 both sides. ABDOMEN: Soft. Nontender. Bowel sounds active. No CVA tenderness. No mass felt. EXTREMITIES: No edema. Full range of motion of all extremities, equal. NEUROLOGIC: No focal deficit. Cranial nerves II through XII are grossly intact. No headache, no double vision or headache. SKIN: Not dry. Intact. Turgor - normal. LYMPHATIC: No palpable lymph nodes/no lymphedema. MUSCULOSKELETAL: Normal joints with no swelling. Muscle tone is normal. LABS: Hgb 12.4, hct 36, WBC 5,000 normal differential The patient was seen and examined with Nurse Practitioner and Consulting Services Associate. CONDITION: Improving with steroids, antibiotics and NEBS TIME SPENT: More than 30 minutes. Plan and coordination of the patient's care discussed in the presence of nurse. SUSANNE
[2017-03-22 09:58] LABS: ABG BASE EXCESS 11 (-2.0-2.0); ABG HCO3 35.4 (22.0-26.0); ABG PCO2 52.2 mmHg (35-45); ABG PH 7.439 (7.35-7.45); ABG TCO2 37 (22.0-28.0)
[2017-03-22 10:43] VITALS: BP 150/70; TEMP 97.9
--- NOTE | 2017-03-22 10:43 | PN ---
DATE OF SERVICE: 03/19/17 SUBJECTIVE: 71-year-old white male hospitalized with pneumonia. The patient's condition has improved with Solu-Cortef, antibiotics, nebs. Smoking counseling done. PHYSICAL EXAMINATION: HEENT: Head normocephalic, atraumatic. Eyes: Extraocular muscles are intact. Pupils are equal, round and reactive to light and accommodation. Ears: No lesions. Nose appeared normal. Throat: No exudate or erythema. NECK: Supple. No JVD, no carotid bruit. No lymphadenopathy or thyromegaly. LUNGS: Decreased breath sounds but clear to auscultation. Percussion note normal. Chest symmetrical. HEART: S1, S2, no S3. No murmurs. No cyanosis or clubbing. No ascites. Pulses: Dorsalis pedis and posterior tibial pulses +1 to +2 both sides. ABDOMEN: Soft. Nontender. Bowel sounds active. No CVA tenderness. No mass felt. EXTREMITIES: No edema. Full range of motion of all extremities, equal. NEUROLOGIC: No focal deficit. Cranial nerves II through XII are grossly intact. No headache, no double vision or headache. SKIN: Not dry. Intact. Turgor - normal. LYMPHATIC: No palpable lymph nodes/no lymphedema. MUSCULOSKELETAL: Normal joints with no swelling. Muscle tone is normal. LABS: Labs are accetable. Sugar 233 likely from steroids CONDITION: Stable The patient was seen and examined with nurse practitioner. TIME SPENT: More than 30 minutes. Plan and coordination of the patient's care discussed in the presence of nurse. SUSANNE
--- NOTE | 2017-03-22 13:30 | CM.DICTOOL ---
ADMISSION: 03/16/17 00:10 DISCHARGE: 03/22/17 FINAL DIAGNOSIS Pneumonia (Acute) HYPERTENSION HYPOTHYROID GERD OSTEOARTHRITIS ANXIETY DEPRESSION INFRA RENAL ABDOMINAL ANEURYSM HERNIA REPAIR CHOLECYSTECTOMY CHRONIC BRONCHITIS CHRONIC RESPIRATORY FAILURE COPD DYSLIPIDEMIA BPH HYPOLIPOPROTENEMIA ANEMIA CATARACT SURGERY LAST VITALS Temp Pulse Resp BP Pulse Ox 97.9 F 94 H 28 H 150/70 H 98 03/22/17 10:00 03/22/17 10:00 03/22/17 10:00 03/22/17 10:00 03/22/17 10:00 ACTIVE HOME MEDICATIONS Acetaminophen/Hydrocodone Bitart (Gardner 5-325) 1 tab PO BID PRN PRN Reason: MODERATE PAIN Last Admin: 03/19/17 20:56 Dose: 1 tab Albuterol/Ipratropium (Duoneb) 1 vial NEB RTQ6H [facility] Last Admin: 03/22/17 05:25 Dose: 1 vial Aspirin (Aspirin Ec) 81 mg PO DAILYWM [facility] Last Admin: 03/22/17 08:41 Dose: 81 mg Budesonide/Formoterol Fumarate (Symbicort 160-4.5 Mcg Inhaler) 2 puff IH BID [facility] Last Admin: 03/22/17 08:42 Dose: 2 puff Cholecalciferol (Vitamin D) 1,000 unit PO DAILY [facility] Last Admin: 03/22/17 08:41 Dose: 1,000 unit Diltiazem HCl (Cardizem) 60 mg PO Q12HR [facility] Last Admin: 03/22/17 08:41 Dose: 60 mg Ferrous Sulfate (Ferrous Sulfate) 324 mg PO BID [facility] Last Admin: 03/22/17 08:41 Dose: 324 mg Gabapentin (Neurontin) 300 mg PO BID [facility] Last Admin: 03/22/17 08:42 Dose: 300 mg Hydrochlorothiazide (Hydrochlorothiazide) 25 mg PO DAILY [facility] Last Admin: 03/22/17 08:41 Dose: 25 mg Lamotrigine (Lamictal) 25 mg PO BID [facility] Last Admin: 03/22/17 08:41 Dose: 25 mg Levothyroxine Sodium (Synthroid) 75 mcg PO QDAC [facility] Last Admin: 03/22/17 05:58 Dose: 75 mcg Lorazepam (Ativan) 0.5 mg PO TID [facility] Last Admin: 03/22/17 08:41 Dose: 0.5 mg Non-Formulary Medication (Primidone [Primidone]) 50 mg PO TID [facility] Last Admin: 03/22/17 08:44 Dose: Not Given Olanzapine (Zyprexa) 2.5 mg PO BID [facility] Last Admin: 03/22/17 08:40 Dose: 2.5 mg Omeprazole (Prilosec) 20 mg PO QDAC [facility] Last Admin: 03/22/17 05:58 Dose: 20 mg Polyethylene Glycol (Miralax) 17 gm PO DAILY PRN PRN Reason: Constipation Roflumilast (Daliresp) 500 mcg PO DAILY [facility] Last Admin: 03/22/17 08:41 Dose: 500 mcg Simvastatin (Zocor) 20 mg PO 1700 [facility] Last Admin: 03/21/17 18:16 Dose: 20 mg Last Admin: 03/22/17 05:58 Dose: 1 gm Tamsulosin HCl (Flomax) 0.4 mg PO 1700 [facility] Last Admin: 03/21/17 18:15 Dose: 0.4 mg ALLERGIES codeine Adverse Reaction (Verified 03/15/17 22:27) metoclopramide HCl [From Reglan] Adverse Reaction (Verified 03/15/17 22:27) NEW PRESCRIPTIONS: NEW MEDICATIONS: 1. KEFLEX 500MG TAKE 1 CAPSULE 3 TIMES A DAY FOR 5 DAYS. TAKE UNTIL ALL GONE. 2. PREDNISONE 10MG TAKE 1 TABLET 2 TIMES A DAY FOR 5 DAYS. TAKE WITH FOOD. SMOKING: NO SMOKING. AVOID SECOND HAND SMOKE. DISEASE SPECIFIC EDUCATION: PNEUMONIA SMOKING CESSATION AND COUNSELING. ACTIVITY MEDICATIONS STEROID THERAPY LAB REVIEW: 03/22/17 04:30 03/22/17 04:30 03/22/17 09:10: Puncture Site Lrad, O2 Saturation 94.0 L, ABG pH 7.439, ABG pCO2 52.2 H, ABG pO2 69.0 L, ABG HCO3 35.4 H, ABG Total CO2 37 H, ABG Base Excess 11 H, Julio Cesar Test +, O2 Delivery Device Nc, Oxygen Liter Flow 2.50 03/22/17 04:35: Hemoglobin A1c 6.7 H 03/22/17 04:30: Sodium 141, Potassium 4.5, Chloride 99, Carbon Dioxide 32 H, Anion Gap 14.5, BUN 25 H, Creatinine 0.80, Estimated GFR (MDRD) 95.00, BUN/ Creatinine Ratio 31.25, Glucose 234 H, Calcium 8.8, Total Bilirubin 0.21, AST 11 L, ALT 9 L, Alkaline Phosphatase 44 L, Total Protein 5.8, Albumin 2.8 L, Globulin 3.0, Albumin/Globulin Ratio 0.93 03/22/17 04:30: WBC 10.24 H, RBC 4.32 L, Hgb 13.7 L, Hct 42.4, MCV 98.1 H, MCH 31.7 H, MCHC 32.3, RDW Coeff of Evan 14.4, Plt Count 188, Immature Gran % (Auto) 0.8, Neut % (Auto) 93.9, Lymph % (Auto) 2.8 L, Whitfield % (Auto) 2.4, Eos % (Auto) 0.0, Baso % (Auto) 0.1, Immature Gran # (Auto) 0.1, Neut # 9.6 H, Lymph # 0.3 L , Whitfield # 0.3 L, Eos # 0.0, Baso # 0.0 PLAN: DISCHARGE HOME. CONTINUE HOME MEDICATIONS PER NURSING SHEET. NEW MEDICATIONS: 1. KEFLEX 500MG TAKE 1 CAPSULE 3 TIMES A DAY FOR 5 DAYS. TAKE UNTIL ALL GONE. 2. PREDNISONE 10MG TAKE 1 TABLET 2 TIMES A DAY FOR 5 DAYS. TAKE WITH FOOD. DIET TOLERATED. GRADUALLY RESUME ACTIVITY. NO SMOKING. AVOID SECOND HAND SMOKE. FOLLOW UP WITH DR. WELLER ON WednesdayMarch AT 145PM. IF UNABLE TO KEEP APPOINTMENT CALL TO RESCHEDULE. [phone]. SITTING UP IN BED. ALERT AND ORIENTED X 4. DR. WELLER IN TO SEE PATIENT THIS AM. APPETITE IS FAIR. VITALS SIGNS STABLE. HAS BEEN AFEBRILE. POX 93% AT 2.5L/C. HEART TONES ARE REGULAR. LUNGS WITH RHONCHI AND DIMINISHED BREATH SOUNDS. HAS PRODUCTIVE COUGH OF YELLOW SPUTUM. IS DYSPNEIC WITH ACTIVITY. ABDOMEN IS SOFT, NON-TENDER WITH BOWEL SOUNDS POSITIVE IN ALL 4 QUADS. LAST BM 03/22. PEDAL PULSE POSITIVE WITHOUT EDEMA. HAS SALINE LOCK IN RIGHT HAND SITE IS CLEAR. IS A FALL RISK WITH FALL PRECAUTIONS IN USE. IS STAND BY ASSIST WITH STEADY/SLOW GAIT. DR. MARLENY WELLER MD Omer MORA APRN
--- NOTE | 2017-03-23 08:28 | PN ---
DATE OF SERVICE: 03/20/17 SUBJECTIVE: 71 year old white male hospitalized with pneumonia. The patient's condition has improved. He is still coughing mild, the cough is somewhat dry. He says that he is coughing up clear sputum now. REVIEW OF SYSTEMS: CONSTITUTIONAL: No night sweats. No fatigue, malaise, lethargy. No fever or chills. HEENT: Eyes: No visual changes. No eye pain. No eye discharge. ENT: No runny nose. No epistaxis. No sinus pain. No sore throat. No odynophagia. No congestion. RESPIRATORY: No cough, no congestion. No hemoptysis. No shortness of breath. CARDIOVASCULAR: No angina symptoms. No CHF symptoms. No atypical chest pain for CAD. No palpitations. No orthopnea. GASTROINTESTINAL: No abdominal pain. No nausea or vomiting. No diarrhea or constipation. No hematemesis. No hematochezia. GENITOURINARY: No urgency. No frequency. No dysuria. No hematuria. No obstructive symptoms. No discharge. No pain. No significant abnormal bleeding. MUSCULOSKELETAL: No musculoskeletal pain; no joint swelling. NEUROLOGICAL: No headache. No neck pain. No syncope. No seizures. No dizziness. PSYCHIATRIC: Not anxious. No depression. No suicidal thoughts. No homicidal thoughts. SKIN: No rash. No lesions. No wounds. ENDOCRINE: No unexplained weight loss. No weight gain. HEMATOLOGIC/LYMPHATIC: No anemia. No purpura. No petechiae. No prolonged or excessive bleeding. No palpable lymph nodes. PHYSICAL EXAMINATION: VITAL SIGNS: Temperature 97.1, pulse 70, respiratory rate 16, blood pressure 110/64, pulse ox 95%. HEENT: Head normocephalic, atraumatic. Eyes: Extraocular muscles are intact. Pupils are equal, round and reactive to light and accommodation. Ears: No lesions. Nose appeared normal. Throat: No exudate or erythema. NECK: Supple. No JVD, no carotid bruit. No lymphadenopathy or thyromegaly. LUNGS: Decreased breath sounds with mild wheeze but good air entry. Percussion note normal. Chest symmetrical. HEART: S1, S2, no S3. No murmurs. No cyanosis or clubbing. No ascites. Pulses: Dorsalis pedis and posterior tibial pulses +1 to +2 both sides. ABDOMEN: Soft. Nontender. Bowel sounds active. No CVA tenderness. No mass felt. EXTREMITIES: No edema. Full range of motion of all extremities, equal. NEUROLOGIC: No focal deficit. Cranial nerves II through XII are grossly intact. No headache, no double vision or headache. SKIN: Not dry. Intact. Turgor - normal. LYMPHATIC: No palpable lymph nodes/no lymphedema. MUSCULOSKELETAL: Normal joints with no swelling. Muscle tone is normal. LABS: Hgb 13.5, hct 42, WBC 6,400 normal differential, creatinine 0.8, BUN 23. ASSESSMENT: 1. Pneumonia seems to be resolving clinically 2. Severe chronic lung disease 3. Hyperglycemia from glucose intolerance. PLAN: 1. Continue steroids, antibiotics and NEBS 2. Advised to quit smoking 3. Counseling for smoking done. TIME SPENT: More than 30 minutes. Plan and coordination of the patient's care discussed in the presence of nurse. SUSANNE
--- NOTE | 2017-03-23 14:17 | PN ---
DATE OF SERVICE: 03/21/17 SUBJECTIVE: 71 year old white male hospitalized with COPD and pneumonia. The patient's condition has steadily improved. It has taken a long time but he is coughing much less. REVIEW OF SYSTEMS: CONSTITUTIONAL: No night sweats. No fatigue, malaise, lethargy. No fever or chills. HEENT: Eyes: No visual changes. No eye pain. No eye discharge. ENT: No runny nose. No epistaxis. No sinus pain. No sore throat. No odynophagia. No congestion. RESPIRATORY: No cough, no congestion. No hemoptysis. No shortness of breath. CARDIOVASCULAR: No angina symptoms. No CHF symptoms. No atypical chest pain for CAD. No palpitations. No orthopnea. GASTROINTESTINAL: No abdominal pain. No nausea or vomiting. No diarrhea or constipation. No hematemesis. No hematochezia. GENITOURINARY: No urgency. No frequency. No dysuria. No hematuria. No obstructive symptoms. No discharge. No pain. No significant abnormal bleeding. MUSCULOSKELETAL: No musculoskeletal pain; no joint swelling. NEUROLOGICAL: No headache. No neck pain. No syncope. No seizures. No dizziness. PSYCHIATRIC: Not anxious. No depression. No suicidal thoughts. No homicidal thoughts. SKIN: No rash. No lesions. No wounds. ENDOCRINE: No unexplained weight loss. No weight gain. HEMATOLOGIC/LYMPHATIC: No anemia. No purpura. No petechiae. No prolonged or excessive bleeding. No palpable lymph nodes. PHYSICAL EXAMINATION: GENERAL: The patient is oriented to time, place and person VITAL SIGNS: Temperature 97.6, pulse 60, respiratory rate 20, blood pressure 120/70 and pulse ox 94%. HEENT: Head normocephalic, atraumatic. Eyes: Extraocular muscles are intact. Pupils are equal, round and reactive to light and accommodation. Ears: No lesions. Nose appeared normal. Throat: No exudate or erythema. NECK: Supple. No JVD, no carotid bruit. No lymphadenopathy or thyromegaly. LUNGS: Decreased breath sounds but clear to auscultation. Percussion note normal. Chest symmetrical. HEART: S1, S2, no S3. No murmurs. No cyanosis or clubbing. No ascites. Pulses: Dorsalis pedis and posterior tibial pulses +1 to +2 both sides. ABDOMEN: Soft. Nontender. Bowel sounds active. No CVA tenderness. No mass felt. EXTREMITIES: No edema. Full range of motion of all extremities, equal. NEUROLOGIC: No focal deficit. Cranial nerves II through XII are grossly intact. No headache, no double vision or headache. SKIN: Not dry. Intact. Turgor - normal. LYMPHATIC: No palpable lymph nodes/no lymphedema. MUSCULOSKELETAL: Normal joints with no swelling. Muscle tone is normal. LABS: Hgb 13, hct 42, WBC 6,800 normal differential, creatinine 0.8, BUN 26, potassium 4.6, glucose 223 likely from steroid effect. ASSESSMENT: 1. Pneumonia 2. COPD 3. Hypertension 4. Dyslipidemia 5. Neuropathy 6. Hyperglycemia from steroids PLAN: 1. Counseling for smoking done 2. Advised to join pulmonary rehab 3. PFT would be done 4. We will whether the patient had an echocardiogram done or not to evaluate LV function for his shortness of breath. Very likely shortness of breath from severe chronic lung disease 5. The patient is advised to take his medication on regular basis PROGNOSIS: Poor The patient is DNR CONDITION: Stable TIME SPENT: More than 30 minutes. Plan and coordination of the patient's care discussed in the presence of nurse. SUSANNE
--- NOTE | 2017-03-24 11:01 | DS ---
DATE OF SERVICE: 03/22/17 FINAL DIAGNOSIS: 1. Pneumonia (acute) 2. Hypertension 3. Hypothyroid 4. GERD 5. Osteoarthritis 6. Anxiety 7. Depression 8. Infrarenal abdominal aneurysm 9. 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 DISCHARGE INSTRUCTIONS: Discharge home. No Smoking. Avoid second hand smoke. Followup with Dr. Ceja on WednesdayMarch 29 at 1:45pm. MEDICATIONS AT DISCHARGE: Krypton 5-325 Po twice a day PRN DUO NEB one vial RT Q 6 hours Aspirin 81mg PO daily Symbicort 160-4.5mcg inhaler two puffs IH twice a day Vitamin D 1,000 unit PO daily Cardizem 60mg PO Q 12 hours Ferrous sulfate 324mg PO twice a day Neurontin 300mg Po twice a day Hydrochlorothiazide 25mg PO daily Lamictal 25mg PO twice a day Synthroid 75mcg PO QDAC Ativan 0.5mg PO three times a day Primidone 50mg PO three times a day Zyprexa 2.5mg PO twice a day Prilosec 20mg PO QDAC Miralax 17gram PO daily PRN Daliresp 500mcg Po daily Zocor 20mg PO 1700 sotero Flomax 0.4mg PO 1700 ALLERGIES: Codeine Metoclopramide NEW PRESCRIPTIONS: Keflex 500mg take one capsule three times a day for 5 days. Take until all gone. Prednisone 10mg take one tablet two times a day for 5 days. Take with food. DIET INSTRUCTIONS: As tolerated ACTIVITY: Gradually resume activity SMOKING: No smoking. Avoid second hand smoke. DISEASE SPECIFIC EDUCATION: Pneumonia Smoking cessation and counseling Activity Medications Steroid Therapy HOSPITAL COURSE: 71 year old white male hospitalized with pneumonia. The patient is heavy smoker. He was treated in the hospital with Zithromax, Rocephin and was given NEBS steroids. He was strongly advised to quit smoking. He is taken care of by sister who has also got lung cancer and also used to be smoker. The patient doesn't have way to be taken care of at home. He was advised jail placement to which he declined. At that time of discharge his vitals were stable. He was feeling fine and less coughing. The x-ray showed some improvement clinically he was improved a lot. Both lungs being clear with maybe mild fainting wheezing, expiratory. The patient at the time of discharge stable. Side of effects of steroids discussed with him including avascular necrosis of femoral bones. Pulmonary rehab declined by the patient. TIME SPENT: More than 60 minutes. [facility]
--- NOTE | 2017-03-24 11:06 | PN ---
03/16/17: Level 5 03/17/17: Intermediate 03/18/17: Intermediate 03/19/17: Intermediate 03/20/17: Intermediate 03/21/17: Intermediate 03/22/17: D as in discharge MTDD
--- NOTE | 2017-03-24 11:19 | PN ---
DATE OF SERVICE: 03/22/17 SUBJECTIVE: 71 year old white male hospitalized with acute bronchitis and bilateral pneumonia. The patient's chest x-ray is stable. The patient's overall condition has improved remarkably. PHYSICAL EXAMINATION: VITALS: Temperature 98, pulse 76, respiratory rate 20, blood pressure 116/68 and pulse ox 93% on 2 liters. HEENT: Head normocephalic, atraumatic. Eyes: Extraocular muscles are intact. Pupils are equal, round and reactive to light and accommodation. Ears: No lesions. Nose appeared normal. Throat: No exudate or erythema. NECK: Supple. No JVD, no carotid bruit. No lymphadenopathy or thyromegaly. LUNGS: Decreased breath sounds good air entry on auscultation. Percussion note normal. Chest symmetrical. HEART: S1, S2, no S3. No murmurs. No cyanosis or clubbing. No ascites. Pulses: Dorsalis pedis and posterior tibial pulses +1 to +2 both sides. ABDOMEN: Soft. Nontender. Bowel sounds active. No CVA tenderness. No mass felt. EXTREMITIES: No edema. Full range of motion of all extremities, equal. NEUROLOGIC: No focal deficit. Cranial nerves II through XII are grossly intact. No headache, no double vision or headache. SKIN: Not dry. Intact. Turgor - normal. LYMPHATIC: No palpable lymph nodes/no lymphedema. MUSCULOSKELETAL: Normal joints with no swelling. Muscle tone is normal. LABS: Hgb 13, hct 42, WBC 10,000, creatinine 0.8, BUN 25, potassium 4.5 ASSESSMENT: 1. Pneumonia, resolved 2. COPD, advised to quit smoking PLAN: 1. The patient is to be discharged home on Steroids, antibiotics, NEBS treatment 2. Strongly advised to join pulmonary rehab which he has declined 3. Advised to quit smoking, counseling for smoking done 4. Will do A1c before discharge 5. PFT before discharge 6. Echo if it is not within a year will do it before discharge The patient was seen and examined with Nurse Practitioner and Toe Stripper. CONDITION: Stable. TIME SPENT: More than 30 minutes. Plan and coordination of the patient's care discussed in the presence of nurse. SUSANNE
== END 2017-03-22 14:34 | disposition home or self-care (01) | DRG 194 ==
LOC: ED 22:18 → MEDSURG A 03-16 00:10
PROVIDERS: ADMIT Internal Medicine; ATTEND Internal Medicine
DX: J18.9 Pneumonia, unspecified organism (principal); J96.10 Chronic respiratory failure, unspecified whether with hypoxia or hypercapnia; R06.02 Shortness of breath; I10 Essential (primary) hypertension; I71.4 Abdominal aortic aneurysm, without rupture; J44.9 Chronic obstructive pulmonary disease, unspecified; D64.9 Anemia, unspecified; E03.9 Hypothyroidism, unspecified; K21.9 Gastro-esophageal reflux disease without esophagitis; M19.90 Unspecified osteoarthritis, unspecified site; F41.8 Other specified anxiety disorders; E78.5 Hyperlipidemia, unspecified; N40.0 Benign prostatic hyperplasia without lower urinary tract symptoms; E78.6 Lipoprotein deficiency; F17.200 Nicotine dependence, unspecified, uncomplicated; R14.0 Abdominal distension (gaseous); R73.9 Hyperglycemia, unspecified; Z99.81 Dependence on supplemental oxygen; Z79.899 Other long term (current) drug therapy; Z98.890 Other specified postprocedural states; Z90.49 Acquired absence of other specified parts of digestive tract
CPT/HCPCS: 36415; 80053; 82550; 82803; 83036; 83880; 84484; 85025; 85379; 87040; 87804; 93005; 93010; 94640; 96365; 96375; 99285

== ENCOUNTER 2017-04-01 09:12 | Inpatient (IN) ==
[2017-04-01 09:18] VITALS: BMI 25.5
--- NOTE | 2017-04-01 09:23 | ED.PDOC ---
General ED Provider: Dr. GEOFFREY LOO Chief Complaint: Non-specific Complaint Stated Complaint: Hurts all over, short of air - worsening last night Time Seen by Physician: 09:35 Mode of Arrival: Ambulance Information Source: Patient, EMT Exam Limitations: Physical impairment (Difficult to understand rambling speach - but appears to be communicating logically) Primary Care Provider: MARLENY WELLER Nursing and Triage Documentation Reviewed and Agree: Yes Reviewed sepsis parameters & appropriate labs ordered?: Yes System Inflammatory Response Syndrome: Not Applicable System Inflammatory Response Syndrome: Not Applicable Review of Systems - Review Of Systems Constitutional: Reports: Malaise Respiratory: Reports: Short of air Musculoskeletal: Reports: Back pain, Joint pain, Muscle pain (Pain all over last night) All Other Systems: Reviewed and Negative Past Medical History - Past Medical History Previously Healthy: No (Pneumonia; DC'd June 17) Endocrine: Reports: Hypothyroid, Dyslipidemia Cardiovascular: Reports: CAD, Hypertension Respiratory: Reports: COPD Hematological: Reports: Anemia Gastrointestinal: Reports: GERD Genitourinary: Reports: None Neuro/Psych: Reports: Anxiety, Depression Musculoskeletal: Reports: Arthritis, Back Pain, Joint Pain Cancer: Reports: Other Other Pertinent Past Medical History: sepd - Surgical History General Surgical History: Reports: Cholecystectomy - Family History Family History: Reports: Unknown - Social History Smoking Status: Former smoker, Light tobacco smoker Hx Substance Use: No Alcohol Screening: None Physical Exam - Physical Exam Appearance: Ill-appearing Ill-appearing: Moderate Pain Distress: Mild Eyes: WILLIAM, Conjunctiva clear ENT: Oropharynx normal Neck: Supple Respiratory: Airway patent, Breath sounds equal, Breath sounds diminished Cardiovascular: RRR, Pulses normal GI/: Soft, Nontender Musculoskeletal: Normal strength, ROM intact, No calf tenderness Skin: Warm, Dry, Pale Neurological: Sensation intact, Motor intact, Alert Psychiatric: Affect appropriate, Mood appropriate Interpretation - EKG Interpretation Time of EKG #1: 09:22 Rate: Normal Rhythm: Sinus Ectopy: None [place]: NL ST Segment: Normal Interpretation: No acute changes Physician Notification - Case Discussed Physician Notified: Dr. Weller Time of Notification: 11:20 (Discussed admission) Critical Care Note - Critical Care Note Total Time (mins): 35 Course - Course Hematology/Chemistry: 04/07/17 04:40 04/07/17 04:40 Orders, Labs, Meds: Lab Review 04/01/17 04/01/1717 09:30 09:40 09:40 WBC 9.06 RBC 4.95 Hgb 16.2 Hct 49.5 MCV 100.0 H MCH 32.7 H MCHC 32.7 RDW Coeff of Evan 12.7 Plt Count 128 L Immature Gran % (Auto) 0.4 Neut % (Auto) 81.2 Lymph % (Auto) 13.9 [place] % (Auto) 3.6 Eos % (Auto) 0.8 Baso % (Auto) 0.1 Immature Gran # (Auto) 0.0 Neut # 7.4 H Lymph # 1.3 [place] # 0.3 L Eos # 0.1 Baso # 0.0 Puncture Site R rad O2 Saturation 76.0 L ABG pH 7.431 ABG pCO2 76.6 H ABG pO2 43.0 L* ABG HCO3 51 H ABG Total CO2 > 50 H ABG Base Excess 27 H Julio Cesar Test + FiO2 % 21.0 Sodium 140 Potassium 3.8 Chloride 83 L Carbon Dioxide 47 H* Anion Gap 13.8 BUN 15 Creatinine 0.83 Estimated GFR (MDRD) 91.00 BUN/Creatinine Ratio 18.07 Glucose 145 H Calcium 9.8 Total Bilirubin 0.83 AST 13 L ALT 13 Alkaline Phosphatase 68 Troponin I 0.0250 Total Protein 7.0 Albumin 3.4 Globulin 3.6 Albumin/Globulin Ratio 0.94 Influenza A (Rapid) Influenza B (Rapid) 04/01/17 09:40 WBC RBC Hgb Hct MCV MCH MCHC RDW Coeff of Evan Plt Count Immature Gran % (Auto) Neut % (Auto) Lymph % (Auto) [place] % (Auto) Eos % (Auto) Baso % (Auto) Immature Gran # (Auto) Neut # Lymph # [place] # Eos # Baso # Puncture Site O2 Saturation ABG pH ABG pCO2 ABG pO2 ABG HCO3 ABG Total CO2 ABG Base Excess Julio Cesar Test FiO2 % Sodium Potassium Chloride Carbon Dioxide Anion Gap BUN Creatinine Estimated GFR (MDRD) BUN/Creatinine Ratio Glucose Calcium Total Bilirubin AST ALT Alkaline Phosphatase Troponin I Total Protein Albumin Globulin Albumin/Globulin Ratio Influenza A (Rapid) Negative Influenza B (Rapid) Negative Orders Category Date Time Status ADMIT PATIENT INPATIENT .TO [facility] (MONITORED BED) ADMISSION 04/01/17 11: 49 Inactive ABG DRAW REQUEST Stat CARDIO 04/01/17 09:19 Completed ABG DRAW REQUEST Stat CARDIO 04/01/17 11:41 Completed EKG-(ED ONLY) Stat CARDIO 04/01/17 09:16 Completed EKG-(IP & OP ONLY) DAILY CARDIO 04/03/17 06:00 Completed NEBULIZER TREATMENT Routine CARDIO 04/01/17 11:55 Completed OXYGEN Routine CARDIO 04/01/17 11:50 Completed GIVE HS SNACK 2100 CARE 04/01/17 11:53 Active INTAKE & OUTPUT Q8HR CARE 04/01/17 11:49 Completed TELEMETRY MONITORING TELE CARE 04/01/17 11:53 Completed VITAL SIGNS Q8HR CARE 04/01/17 11:49 Completed HS SNACK DIETARY 04/01/17 Dinner Completed ABG Stat LAB 04/01/17 09:30 Completed ABG Stat LAB 04/01/17 12:10 Completed CBC W/ AUTO DIFF DAILY@0600 LAB 04/02/17 04:05 Completed CBC W/ AUTO DIFF DAILY@0600 LAB 04/03/17 04:25 Completed CBC W/ AUTO DIFF Stat LAB 04/01/17 09:40 Completed COMPREHENSIVE METABOLIC PANEL DAILY@0600 LAB 04/02/17 04:05 Completed COMPREHENSIVE METABOLIC PANEL DAILY@0600 LAB 04/03/17 04:25 Completed COMPREHENSIVE METABOLIC PANEL Stat LAB 04/01/17 09:40 Completed FLU A/B MOLECULAR Stat LAB 04/01/17 09:40 Completed TROPONIN I Stat LAB 04/01/17 09:40 Completed Aspirin [Aspirin EC] MEDS 04/02/17 08:00 Discontinued 81 mg PO DAILYWM Budesonide [Pulmicort 0.5 mg/2 ml] MEDS 04/01/17 18:00 Discontinued 1 vial NEB RTBID Budesonide/Formoterol Fumarate [Symbicort 160-4.5 Mcg MEDS 04/01/17 12:00 Discontinued Inhaler] 2 puff IH BID Ceftriaxone Sodium [Rocephin] 1 gm MEDS 04/01/17 12:00 Discontinued 0.9 % Sodium Chloride [Sodium Chloride] 50 ml IV DAILY Cholecalciferol (Vitamin D3) [Vitamin D] MEDS 04/02/17 09:00 Discontinued 1,000 unit PO DAILY Diltiazem HCl [Cardizem] MEDS 04/01/17 12:00 Discontinued 60 mg PO Q12HR Enoxaparin Sodium [Lovenox] MEDS 04/01/17 12:30 Discontinued 40 mg SUBCUT DAILY Hydrocodone Bit/Acetaminophen [[place] 5-325] MEDS 04/01/17 11:59 Discontinued 1 tab PO BID PRN Hydrocortisone Sod Succ/Pf [Solu-Cortef 250 mg] MEDS 04/01/17 12:00 Discontinued 125 mg IVP Q6HR Lamotrigine [Lamictal] MEDS 04/01/17 21:00 Discontinued 25 mg PO BID Levalbuterol HCl [Xopenex 1.25 mg] MEDS 04/01/17 12:00 Discontinued 1 vial NEB RTQ6H Levothyroxine Sodium [Synthroid] MEDS 04/02/17 06:30 Discontinued 75 mcg PO QDAC Lorazepam [Ativan] MEDS 04/01/17 12:00 Discontinued 0.5 mg PO TID Olanzapine [Zyprexa] MEDS 04/01/17 12:00 Discontinued 2.5 mg PO BID Omeprazole [Prilosec] MEDS 04/02/17 06:30 Discontinued 20 mg PO QDAC Polyethylene Glycol 3350 [Miralax] MEDS 04/01/17 11:59 Discontinued 17 gm PO DAILY PRN Primidone [Primidone] MEDS 04/01/17 15:00 Discontinued 50 mg PO TID Roflumilast [Daliresp] MEDS 04/02/17 09:00 Discontinued 500 mcg PO DAILY Sodium Chloride 0.9% [Sodium Chloride] 1,000 ml MEDS 04/01/17 12:00 Discontinued IV 75 mls/hr Sucralfate [Carafate] MEDS 04/01/17 13:00 Discontinued 1 gm PO QID Tamsulosin HCl [Flomax] MEDS 04/01/17 17:00 Discontinued 0.4 mg PO 1700 RESUSCITATION STATUS Routine OTHERS 04/01/17 11:49 Ordered CHEST, 1V AP ONLY Stat RADS 04/01/17 09:16 Completed Medications Discontinued Medications Generic Name Dose Route Start Last Admin Trade Name Freq PRN Reason Stop Dose Admin Acetaminophen/Hydrocodone Bitart 1 tab 04/01/17 11:59 04/06/17 14:39 [place] 5-325 PO 1 tab BID PRN Administration MODERATE PAIN Aspirin 81 mg 04/02/17 08:00 04/07/17 09:03 Aspirin Ec PO 81 mg DAILYWM PRIYANKA Administration Azithromycin 500 mg 04/01/17 12:30 04/03/17 08:37 Zithromax PO 04/03/17 09:01 500 mg DAILY PRIYANKA Administration Budesonide 1 vial 04/01/17 18:00 04/07/17 05:40 Pulmicort 0.5 Mg/2 Ml NEB 1 vial RTBID PRIYANKA Administration Budesonide/Formoterol Fumarate 2 puff 04/01/17 12:00 04/01/17 13:49 Symbicort 160-4.5 Mcg Inhaler IH Not Given BID [facility] Cephalexin 500 mg 04/06/17 08:30 04/07/17 05:53 Keflex PO 500 mg Q8HR PRIYANKA Administration Cholecalciferol 1,000 unit 04/02/17 09:00 04/07/17 09:05 Vitamin D PO 1,000 unit DAILY PRIYANKA Administration Diltiazem HCl 60 mg 04/01/17 12:00 04/07/17 09:04 Cardizem PO 60 mg Q12HR PRIYANKA Administration Enoxaparin Sodium 40 mg 04/01/17 12:30 04/02/17 17:06 Lovenox SUBCUT Not Given DAILY [facility] Enoxaparin Sodium 40 mg 04/02/17 16:43 04/07/17 09:06 Lovenox SUBCUT 40 mg DAILY PRIYANKA Administration Ferrous Sulfate 324 mg 04/01/17 21:00 04/07/17 09:05 Ferrous Sulfate PO 324 mg BID PRIYANKA Administration Furosemide 40 mg 04/01/17 16:50 04/01/17 17:27 Lasix IVP 04/01/17 16:51 40 mg ONCE STA Administration Gabapentin 300 mg 04/01/17 21:00 04/07/17 09:06 Neurontin PO 300 mg BID [facility] Administration Hydrochlorothiazide 25 mg 04/01/17 12:30 04/07/17 09:06 Hydrochlorothiazide PO 25 mg DAILY PRIYANKA Administration Hydrocortisone Sodium Succinate 125 mg 04/01/17 12:00 04/05/17 05:33 Solu-Cortef 250 Mg IVP 125 mg Q6HR PRIYANKA Administration Hydrocortisone Sodium Succinate 125 mg 04/05/17 18:00 04/05/17 20:53 Solu-Cortef 250 Mg IVP 125 mg Q12HR PRIYANKA Administration Ceftriaxone Sodium 1 gm/ 50 mls @ 75 mls/hr 04/01/17 12:00 04/05/17 08:39 Sodium Chloride IV 75 mls/hr DAILY PRIYANKA Administration Sodium Chloride 1,000 mls @ 75 mls/hr 04/01/17 12:00 04/02/17 17:05 Sodium Chloride IV Not Given .[id number] PRIYANKA Sodium Chloride 1,000 mls @ 50 mls/hr 04/02/17 08:25 04/05/17 07:58 Sodium Chloride IV 50 mls/hr .Q20H PRIYANKA Administration Lamotrigine 25 mg 04/01/17 21:00 04/07/17 09:07 Lamictal PO 25 mg BID PRIYANKA Administration Levalbuterol HCl 1 vial 04/01/17 12:00 04/07/17 11:15 Xopenex 1.25 Mg NEB 1 vial RTQ6H PRIYANKA Administration Levothyroxine Sodium 75 mcg 04/02/17 06:30 04/07/17 05:52 Synthroid PO 75 mcg QDAC PRIYANKA Administration Lorazepam 0.5 mg 04/01/17 12:00 04/07/17 09:16 Ativan PO 0.5 mg TID PRIYANKA Administration Non-Formulary Medication 50 mg 04/01/17 15:00 04/07/17 09:16 Primidone [Primidone] PO Not Given TID PRIYANKA Olanzapine 2.5 mg 04/01/17 12:00 04/07/17 09:06 Zyprexa PO 2.5 mg BID PRIYANKA Administration Omeprazole 20 mg 04/02/17 06:30 04/07/17 05:52 Prilosec PO 20 mg QDAC PRIYANKA Administration Ondansetron HCl 4 mg 04/02/17 20:12 Zofran 4 Mg/2 Ml IVP Q6H PRN Nausea/Vomitting Polyethylene Glycol 17 gm 04/01/17 11:59 Miralax PO DAILY PRN Constipation Potassium Chloride 40 meq 04/02/17 08:00 04/04/17 16:36 K-Dur PO 40 meq BIDWM PRIYANKA Administration Potassium Chloride 20 meq 04/05/17 13:00 04/06/17 05:46 K-Dur PO 20 meq 5XD PRIYANKA Administration Potassium Chloride 20 meq 04/05/17 09:00 K-Dur PO DAILY PRIYANKA Potassium Chloride 40 meq 04/06/17 09:00 04/07/17 09:05 K-Dur PO 40 meq TIDWM PRIYANKA Administration Prednisone 20 mg 12/19/17 08:30 04/07/17 09:06 Prednisone PO 20 mg BIDWM PRIYANKA Administration Roflumilast 500 mcg 04/02/17 09:00 04/07/17 09:06 Daliresp PO 500 mcg DAILY PRIYANKA Administration Simvastatin 20 mg 04/01/17 17:00 04/06/17 17:16 Zocor PO 20 mg 1700 PRIYANKA Administration Sodium Chloride 1 syr 04/05/17 13:00 04/07/17 05:52 Saline Flush IVF 1 syr Q8HR PRIYANKA Administration Sodium Chloride 1 syr 04/05/17 10:24 04/05/17 19:38 Saline Flush IVF 1 syr PRN PRN Administration Maintain IV patency Sucralfate 1 gm 04/01/17 13:00 Carafate PO QID PRIYANKA Sucralfate 1 gm 04/01/17 17:00 04/07/17 11:35 Carafate PO 1 gm ACHS PRIYANKA Administration Tamsulosin HCl 0.4 mg 04/01/17 17:00 04/06/17 17:16 Flomax PO 0.4 mg 1700 PRIYANKA Administration Vital Signs: Temp Pulse Resp BP Pulse Ox 04/01/17 09:13 97.7 F 85 15 136/82 92 L Departure - Departure Time of Disposition: 12:07 Disposition: ADMITTED INPATIENT Discharge Problem: Shortness of breath Condition: Stable Pt referred to PMD for follow-up: Yes (Follow up on discharge) IPMP verified?: No (No narcotics prescribed) Allergies/Adverse Reactions: Allergies codeine Adverse Reaction (Verified 04/01/17 09:17) metoclopramide HCl [From Reglan] Adverse Reaction (Verified 04/01/17 09:17) Home Medications: Ambulatory Orders Gabapentin 300 mg PO BID 11/18/13 Simvastatin [Zocor] 20 mg PO 1700 11/18/13 Tamsulosin HCl 0.4 mg PO 1700 11/18/13 Ipratropium/Albuterol Neb [Duoneb] 1 vial INH BID 01/13/14 Levothyroxine Sodium [Synthroid] 75 mcg PO QDAC 01/13/14 Budesonide/Formoterol Fumarate [Symbicort 160-4.5 Mcg Inhaler] 2 puff IH BID Hydrochlorothiazide 25 mg PO DAILY 05/10/15 Sucralfate [Carafate] 1 gm PO QID 05/10/15 Lamotrigine [Lamictal] 25 mg PO BID #60 11/21/15 Lorazepam 0.5 mg PO TID #90 11/21/15 Omeprazole [Prilosec] 20 mg PO QDAC 02/29/16 Roflumilast [Daliresp] 500 mcg PO DAILY 02/29/16 Primidone 50 mg PO TID #90 05/07/16 Aspirin [Ecotrin] 81 mg PO DAILY 06/10/16 Diltiazem HCl [Cardizem] 60 mg PO Q12HR #60 tablet 06/17/16 Olanzapine [Zyprexa] 2.5 mg PO BID #60 07/30/16 Cholecalciferol (Vitamin D3) [Vitamin D] 1 tab PO DAILY 01/13/17 Ferrous Sulfate 1 tab PO BID 01/13/17 Polyethylene Glycol 3350 [Miralax] 1 pkt PO DAILY PRN 01/13/17 Hydrocodone Bit/Acetaminophen [[place] 5-325] 1 tab PO BID PRN 03/15/17 Cephalexin [Keflex] 500 mg PO Q12HR #10 capsule 04/07/17 Potassium Chloride [K-Dur] 20 meq PO DAILY #30 tab 04/07/17 Prednisone 10 mg PO DIRECTED #40 tablet 04/07/17
--- NOTE | 2017-04-01 09:58 | DI ---
EXAM: Single frontal view of the chest HISTORY: Shortness of breath. COMPARISON: Chest x-ray 03/21/2017 and multiple priors including CT chest 03/21/2017 FINDINGS: Cardiomediastinal silhouette is unremarkable. There is no acute consolidation or mass. Fi ndings are consistent with emphysematous disease. There is questionable bibasilar atelectasis. The osseous structures are unremarkable. IMPRESSION: Emphysema with mild bibasilar atelectasis.
[2017-04-01] MEDS ORDERED: MIRALAX PO PRN (11:59)
[2017-04-01] MEDS ORDERED: SYMBICORT 160-4.5 MCG INHALER IH SCH (12:00)
[2017-04-01] MEDS ORDERED: NON-FORMULARY MEDICATION (Hydrochlorothiazide [Hydrochlorothiazide] 25 MG) PO SCH (12:00)
[2017-04-01] MEDS ORDERED: DUONEB NEB SCH (12:00)
[2017-04-01] MEDS ORDERED: ZITHROMAX 500 MG in SODIUM CHLORIDE 250 ML IV SCH (12:00)
[2017-04-01] MEDS ORDERED: NON-FORMULARY MEDICATION (Gabapentin [Gabapentin] 300 MG) PO SCH (12:00)
[2017-04-01] MEDS: XOPENEX 1.25 MG NEB SCH ×3 (12:50→23:09)
[2017-04-01] MEDS ORDERED: CARAFATE PO SCH (13:00)
[2017-04-01] MEDS: ROCEPHIN 1 GM in SODIUM CHLORIDE 50 ML IV SCH (13:34)
[2017-04-01] MEDS: SODIUM CHLORIDE 1,000 ML IV SCH (13:35)
[2017-04-01] MEDS: SOLU-CORTEF 250 MG IVP SCH ×2 (13:42→20:00)
[2017-04-01] MEDS: CARDIZEM PO SCH ×2 (13:47→22:17)
[2017-04-01] MEDS: LOVENOX SUBCUT SCH (13:48)
[2017-04-01] MEDS: HYDROCHLOROTHIAZIDE PO SCH (13:48)
[2017-04-01] MEDS: ZITHROMAX PO SCH (13:49)
[2017-04-01] MEDS: ZYPREXA PO SCH ×2 (13:49→22:17)
[2017-04-01] MEDS: ATIVAN PO SCH ×3 (14:00→22:17)
[2017-04-01] MEDS ORDERED: LASIX IVP STA (16:50)
[2017-04-01] MEDS: PULMICORT 0.5 MG/2 ML NEB SCH (16:55)
[2017-04-01] MEDS ORDERED: NON-FORMULARY MEDICATION (Simvastatin [Zocor] 20 MG) PO SCH (17:00)
[2017-04-01] MEDS: PRIMIDONE 50 MG PO SCH ×2 (19:17→22:18)
[2017-04-01] MEDS: LASIX ONE ×2 (19:17→19:27)
[2017-04-01] MEDS: FLOMAX PO SCH (19:22)
[2017-04-01] MEDS: ZOCOR PO SCH (19:23)
[2017-04-01] MEDS: CARAFATE PO SCH ×2 (19:23→22:16)
[2017-04-01] MEDS ORDERED: NON-FORMULARY MEDICATION (Ferrous Sulfate [Ferrous Sulfate] 1 TAB) PO SCH (21:00)
[2017-04-01] MEDS: NEURONTIN PO SCH (22:16)
[2017-04-01] MEDS: LAMICTAL PO SCH (22:16)
[2017-04-01] MEDS: FERROUS SULFATE PO SCH (22:17)
[2017-04-02] MEDS: SOLU-CORTEF 250 MG IVP SCH ×4 (01:25→17:04)
[2017-04-02] MEDS: XOPENEX 1.25 MG NEB SCH ×4 (05:13→22:56)
[2017-04-02] MEDS: PULMICORT 0.5 MG/2 ML NEB SCH ×2 (05:14→18:43)
[2017-04-02] MEDS: SYNTHROID PO SCH (06:33)
[2017-04-02] MEDS: CARAFATE PO SCH ×4 (06:33→21:06)
[2017-04-02] MEDS: PRILOSEC PO SCH (06:33)
[2017-04-02] MEDS: LAMICTAL PO SCH ×2 (08:44→21:05)
[2017-04-02] MEDS: ROCEPHIN 1 GM in SODIUM CHLORIDE 50 ML IV SCH (08:44)
[2017-04-02] MEDS: ASPIRIN EC PO SCH (08:44)
[2017-04-02] MEDS: ZITHROMAX PO SCH (08:45)
[2017-04-02] MEDS: FERROUS SULFATE PO SCH ×2 (08:45→21:05)
[2017-04-02] MEDS: VITAMIN D PO SCH (08:45)
[2017-04-02] MEDS: CARDIZEM PO SCH ×2 (08:45→21:06)
[2017-04-02] MEDS: HYDROCHLOROTHIAZIDE PO SCH (08:45)
[2017-04-02] MEDS: NEURONTIN PO SCH ×2 (08:45→21:05)
[2017-04-02] MEDS: DALIRESP PO SCH (08:45)
[2017-04-02] MEDS: K-DUR PO SCH ×2 (08:46→16:56)
[2017-04-02] MEDS: ZYPREXA PO SCH ×2 (08:46→21:05)
--- NOTE | 2017-04-02 08:52 | PCM.PROG ---
Attending Provider: ATTENDING PROVIDER: Dr. MARLENY WELLER This patient is seen with Amber Guadalupe, Nurse Practitioner. DATE OF SERVICE: 04/02/17 SUBJECTIVE: This 71 year old WHITE/ M was hospitalized 04/01/17. The patient is lying in bed, alert. He is still short of breath with mildly labored breathing due to severe COPD and positioning. REVIEW OF SYSTEMS: CONSTITUTIONAL: Weakness. No night sweats. No fever or chills. HEENT: Eyes: No visual changes. No eye pain. No eye discharge. ENT: No runny nose. No epistaxis. No sinus pain. No odynophagia. No congestion. RESPIRATORY: Positive for cough and shortness of breath. No hemoptysis. CARDIOVASCULAR: No angina symptoms. No CHF symptoms. No atypical chest pain for CAD. No palpitations. No orthopnea.. GASTROINTESTINAL: No abdominal pain. No nausea or vomiting. No diarrhea or constipation. No hematemesis. No hematochezia. GENITOURINARY: No urgency. No frequency. No dysuria. No hematuria. No obstructive symptoms. No discharge. No pain. No significant abnormal bleeding. MUSCULOSKELETAL: No musculoskeletal pain; no joint swelling. NEUROLOGICAL: Awake, alert, oriented to time, place and person. No headache. No neck pain. No syncope. No seizures. No dizziness. PSYCHIATRIC: Not anxious. No depression. No suicidal thoughts. No homicidal thoughts. SKIN: No rash. No lesions. No wounds. ENDOCRINE: No unexplained weight loss. No weight gain. HEMATOLOGIC/LYMPHATIC: No anemia. No purpura. No petechiae. No prolonged or excessive bleeding. No palpable lymph nodes. PHYSICAL EXAMINATION: GENERAL: The patient is awake, alert and oriented, lying/sitting in bed in no distress. VITAL SIGNS: Temperature 97.0 F, Pulse 77, Respiratory Rate 20, BP 121/68, Pulse Ox 95% HEENT: Head normocephalic, atraumatic. Eyes: Extraocular muscles are intact. Pupils are equal, round and reactive to light and accommodation. Ears: No lesions. Nose appeared normal. Throat: No exudate or erythema. NECK: Supple. No JVD, no carotid bruit. No lymphadenopathy or thyromegaly. LUNGS: Severely diminished breath sounds bilaterally with bilateral rub. Percussion note normal. Chest symmetrical. HEART: S1, S2, no S3. No murmurs. No cyanosis or clubbing. No ascites. Pulses: Dorsalis pedis and posterior tibial pulses +1 to +2 both sides. ABDOMEN: Soft. Non-tender. Bowel sounds active. No CVA tenderness. No mass felt. EXTREMITIES: No edema. Full range of motion of all extremities, equal. NEUROLOGIC: No focal deficit. Cranial nerves II through XII are grossly intact. No headache, no double vision or headache. SKIN: Not dry. Intact. Turgor-normal. LYMPHATIC: No palpable lymph nodes/no lymphedema. MUSCULOSKELETAL: Normal joints with no swelling. Muscle tone is normal. LAB REVIEW: 04/02/17 04:05 04/02/17 04:05 04/02/17 04:05: Sodium 138, Potassium 3.0 L, Chloride 81 L, Carbon Dioxide 45 H* , Anion Gap 15.0, BUN 16, Creatinine 0.75, Estimated GFR (MDRD) 102.00, BUN/ Creatinine Ratio 21.33, Glucose 152 H, Calcium 9.4, Total Bilirubin 0.74, AST 14 L, ALT 11 L, Alkaline Phosphatase 57, Total Protein 5.8, Albumin 3.0 L, Globulin 2.8, Albumin/Globulin Ratio 1.07 04/02/17 04:05: WBC 10.39 H, RBC 4.55 L, Hgb 14.6, Hct 42.8 D, MCV 94.1 H D, MCH 32.1 H, MCHC 34.1, RDW Coeff of Evan 12.6, Plt Count 137 L, Immature Gran % ( Auto) 0.5, Neut % (Auto) 75.9, Lymph % (Auto) 18.1, [place] % (Auto) 5.0, Eos % ( Auto) 0.3, Baso % (Auto) 0.2, Immature Gran # (Auto) 0.1, Neut # 7.9 H, Lymph # 1.9, [place] # 0.5, Eos # 0.0, Baso # 0.0 04/01/17 12:10: Puncture Site R rad, O2 Saturation 90.0 L, ABG pH 7.494 H, ABG pCO2 64.8 H, ABG pO2 57.0 L*, ABG HCO3 49.9 H, ABG Total CO2 > 50 H, ABG Base Excess 27 H, Julio Cesar Test +, O2 Delivery Device Nc, Oxygen Liter Flow 3.00 ASSESSMENT: 1. Shortness of breath 2. Acute exacerbation of COPD , oxygen dependent 3. Hypokalemia 4. Elevated c02 5. Chronic respiratory failure PLAN: 1. Continue IV steroids 2. Neb treatments 3. Will give potassium 40 mEq b.i.d. today Plan and coordination of the patient's care discussed in the presence of Injection Molding Technician and nurse. CONDITION: Stable SCRIBED BY: SANDY CASANOVA Pilot Safety Inspector scribed while in presence of service performed by Dr. Weller/Amber Guadalupe APRN on 04/02/17 (1718)
[2017-04-02] MEDS: ATIVAN PO SCH ×3 (08:54→21:05)
[2017-04-02] MEDS: SODIUM CHLORIDE 1,000 ML IV SCH ×2 (15:52→17:05)
[2017-04-02] MEDS: PRIMIDONE 50 MG PO SCH ×3 (16:45→22:23)
[2017-04-02] MEDS: FLOMAX PO SCH (16:57)
[2017-04-02] MEDS: ZOCOR PO SCH (16:58)
[2017-04-02] MEDS: LOVENOX SUBCUT SCH ×2 (17:01→17:06)
[2017-04-02] MEDS ORDERED: ZOFRAN 4 MG/2 ML IVP PRN (20:12)
[2017-04-02] MEDS: NORCO 5-325 PO PRN (21:06)
[2017-04-03] MEDS: SOLU-CORTEF 250 MG IVP SCH ×5 (00:15→23:23)
[2017-04-03] MEDS: PULMICORT 0.5 MG/2 ML NEB SCH ×2 (05:16→18:00)
[2017-04-03] MEDS: XOPENEX 1.25 MG NEB SCH ×4 (05:16→23:03)
[2017-04-03] MEDS: CARAFATE PO SCH ×4 (05:30→20:33)
[2017-04-03] MEDS: SYNTHROID PO SCH (05:30)
[2017-04-03] MEDS: PRILOSEC PO SCH (05:30)
[2017-04-03] MEDS: LOVENOX SUBCUT SCH (08:36)
[2017-04-03] MEDS: ROCEPHIN 1 GM in SODIUM CHLORIDE 50 ML IV SCH (08:36)
[2017-04-03] MEDS: NEURONTIN PO SCH ×2 (08:37→20:34)
[2017-04-03] MEDS: ATIVAN PO SCH ×3 (08:37→20:34)
[2017-04-03] MEDS: LAMICTAL PO SCH ×2 (08:37→20:34)
[2017-04-03] MEDS: ZITHROMAX PO SCH (08:37)
[2017-04-03] MEDS: K-DUR PO SCH ×2 (08:37→17:17)
[2017-04-03] MEDS: CARDIZEM PO SCH ×2 (08:37→20:34)
[2017-04-03] MEDS: ZYPREXA PO SCH ×2 (08:37→20:34)
[2017-04-03] MEDS: ASPIRIN EC PO SCH (08:38)
[2017-04-03] MEDS: DALIRESP PO SCH (08:38)
[2017-04-03] MEDS: HYDROCHLOROTHIAZIDE PO SCH (08:38)
[2017-04-03] MEDS: FERROUS SULFATE PO SCH ×2 (08:38→20:34)
[2017-04-03] MEDS: VITAMIN D PO SCH (08:38)
[2017-04-03] MEDS: PRIMIDONE 50 MG PO SCH ×3 (08:38→20:35)
[2017-04-03] MEDS: SODIUM CHLORIDE 1,000 ML IV SCH (12:27)
[2017-04-03] MEDS: ZOCOR PO SCH (17:17)
[2017-04-03] MEDS: FLOMAX PO SCH (17:17)
[2017-04-04] MEDS: XOPENEX 1.25 MG NEB SCH ×4 (05:12→23:50)
[2017-04-04] MEDS: PULMICORT 0.5 MG/2 ML NEB SCH ×2 (05:12→17:00)
[2017-04-04] MEDS: SOLU-CORTEF 250 MG IVP SCH ×3 (06:12→17:55)
[2017-04-04] MEDS: PRILOSEC PO SCH (06:12)
[2017-04-04] MEDS: SYNTHROID PO SCH (06:13)
[2017-04-04] MEDS: CARAFATE PO SCH ×4 (06:13→20:25)
[2017-04-04] MEDS: SODIUM CHLORIDE 1,000 ML IV SCH (08:47)
[2017-04-04] MEDS: ROCEPHIN 1 GM in SODIUM CHLORIDE 50 ML IV SCH (08:47)
[2017-04-04] MEDS: NEURONTIN PO SCH ×2 (08:48→20:25)
[2017-04-04] MEDS: ZYPREXA PO SCH ×2 (08:48→20:25)
[2017-04-04] MEDS: LOVENOX SUBCUT SCH (08:48)
[2017-04-04] MEDS: LAMICTAL PO SCH ×2 (08:48→20:26)
[2017-04-04] MEDS: VITAMIN D PO SCH (08:48)
[2017-04-04] MEDS: CARDIZEM PO SCH ×2 (08:49→20:25)
[2017-04-04] MEDS: K-DUR PO SCH ×2 (08:49→16:36)
[2017-04-04] MEDS: HYDROCHLOROTHIAZIDE PO SCH (08:49)
[2017-04-04] MEDS: ATIVAN PO SCH ×3 (08:49→20:26)
[2017-04-04] MEDS: DALIRESP PO SCH (08:49)
[2017-04-04] MEDS: ASPIRIN EC PO SCH (08:49)
[2017-04-04] MEDS: FERROUS SULFATE PO SCH ×2 (08:49→20:25)
[2017-04-04] MEDS: PRIMIDONE 50 MG PO SCH ×3 (10:40→20:26)
[2017-04-04] MEDS: NORCO 5-325 PO PRN (15:18)
[2017-04-04] MEDS: ZOCOR PO SCH (16:36)
[2017-04-04] MEDS: FLOMAX PO SCH (16:36)
[2017-04-05] MEDS: SOLU-CORTEF 250 MG IVP SCH ×4 (00:11→20:53)
[2017-04-05] MEDS: CARAFATE PO SCH ×4 (05:35→20:55)
[2017-04-05] MEDS: SYNTHROID PO SCH (05:35)
[2017-04-05] MEDS: PRILOSEC PO SCH (05:35)
[2017-04-05] MEDS: PULMICORT 0.5 MG/2 ML NEB SCH ×2 (06:00→16:36)
[2017-04-05] MEDS: XOPENEX 1.25 MG NEB SCH ×4 (06:00→23:08)
[2017-04-05] MEDS: SODIUM CHLORIDE 1,000 ML IV SCH (07:58)
--- NOTE | 2017-04-05 08:35 | PN ---
DATE OF SERVICE: 04/01/17 SUBJECTIVE: The patient was seen and examined in the room. The patient was admitted with acute respiratory failure. The patient's blood gasses on room air was pO2 of 43 with pCO2 71 with pH 7.4 with 76% saturation with 51HCO3. He had severe respiratory failure and chronic respiratory failure. The patient is noncompliant. He is complaining of shortness of breath, cough and congestion. The patient has been given steroid IV with IV antibiotics and NEBS treatment Xopenex. His condition has improved and he is put back on 3 liters and his blood gases is 7.49 with pO2 57, pCO2 64 with oxygen saturation 90%. The patient is noncompliant. The sister is in the room. REVIEW OF SYSTEMS: CONSTITUTIONAL: No night sweats. No fatigue, malaise, lethargy. No fever or chills. HEENT: Eyes: No visual changes. No eye pain. No eye discharge. ENT: No runny nose. No epistaxis. No sinus pain. No sore throat. No odynophagia. No congestion. RESPIRATORY: No cough, no congestion. No hemoptysis. No shortness of breath. CARDIOVASCULAR: No angina symptoms. No CHF symptoms. No atypical chest pain for CAD. No palpitations. No orthopnea. GASTROINTESTINAL: No abdominal pain. No nausea or vomiting. No diarrhea or constipation. No hematemesis. No hematochezia. GENITOURINARY: No urgency. No frequency. No dysuria. No hematuria. No obstructive symptoms. No discharge. No pain. No significant abnormal bleeding. MUSCULOSKELETAL: No musculoskeletal pain; no joint swelling. NEUROLOGICAL: No headache. No neck pain. No syncope. No seizures. No dizziness. PSYCHIATRIC: Not anxious. No depression. No suicidal thoughts. No homicidal thoughts. SKIN: No rash. No lesions. No wounds. ENDOCRINE: No unexplained weight loss. No weight gain. HEMATOLOGIC/LYMPHATIC: No anemia. No purpura. No petechiae. No prolonged or excessive bleeding. No palpable lymph nodes. PLAN: 1. Given IV steroids 2. Antibiotics 3. NEBS treatment CONDITION: Stable for now, he is able to speak sentences without stopping. The patient is oriented to time, place and person but sleepy. The sister is in the room and the patient is DNR. TIME SPENT: More than 30 minutes. Plan and coordination of the patient's care discussed in the presence of nurse. SUSANNE
[2017-04-05] MEDS: NEURONTIN PO SCH ×2 (08:39→20:54)
[2017-04-05] MEDS: ROCEPHIN 1 GM in SODIUM CHLORIDE 50 ML IV SCH (08:39)
[2017-04-05] MEDS: ZYPREXA PO SCH ×2 (08:39→20:54)
[2017-04-05] MEDS: ASPIRIN EC PO SCH (08:39)
[2017-04-05] MEDS: ATIVAN PO SCH ×3 (08:39→20:55)
[2017-04-05] MEDS: LAMICTAL PO SCH ×2 (08:39→20:54)
[2017-04-05] MEDS: CARDIZEM PO SCH ×2 (08:39→20:55)
[2017-04-05] MEDS: FERROUS SULFATE PO SCH ×2 (08:40→20:55)
[2017-04-05] MEDS: VITAMIN D PO SCH (08:40)
[2017-04-05] MEDS: LOVENOX SUBCUT SCH (08:40)
[2017-04-05] MEDS: DALIRESP PO SCH (08:41)
[2017-04-05] MEDS: HYDROCHLOROTHIAZIDE PO SCH (08:41)
[2017-04-05] MEDS: PRIMIDONE 50 MG PO SCH ×3 (08:42→20:57)
[2017-04-05] MEDS ORDERED: K-DUR PO SCH (09:00)
--- NOTE | 2017-04-05 09:19 | PN ---
DATE OF SERVICE: 04/02/17 SUBJECTIVE: The patient was hospitalized with acute respiratory failure with CO2 Narcosis. The patient doesn't remember anything, was asking about his sister who takes care of him and how she is doing. I told him that she was present at the time at the time when he brought to the emergency room and she was present in the room. He doesn't remember that. The patient is oriented to time place and person. He recognized me by name and recognized most of the nursing staff by name. REVIEW OF SYSTEMS: CONSTITUTIONAL: No night sweats. No fatigue, malaise, lethargy. No fever or chills. Not in distress. HEENT: Eyes: No visual changes. No eye pain. No eye discharge. ENT: No runny nose. No epistaxis. No sinus pain. No sore throat. No odynophagia. No congestion. RESPIRATORY: No cough, no congestion. No hemoptysis. No shortness of breath. CARDIOVASCULAR: No angina symptoms. No CHF symptoms. No atypical chest pain for CAD. No palpitations. No orthopnea. GASTROINTESTINAL: No abdominal pain. No nausea or vomiting. No diarrhea or constipation. No hematemesis. No hematochezia. Appetite has improved. GENITOURINARY: No urgency. No frequency. No dysuria. No hematuria. No obstructive symptoms. No discharge. No pain. No significant abnormal bleeding. MUSCULOSKELETAL: No musculoskeletal pain; no joint swelling. NEUROLOGICAL: No headache. No neck pain. No syncope. No seizures. No dizziness. PSYCHIATRIC: Not anxious. No depression. No suicidal thoughts. No homicidal thoughts. SKIN: No rash. No lesions. No wounds. ENDOCRINE: No unexplained weight loss. No weight gain. HEMATOLOGIC/LYMPHATIC: No anemia. No purpura. No petechiae. No prolonged or excessive bleeding. No palpable lymph nodes. PHYSICAL EXAMINATION: HEENT: Head normocephalic, atraumatic. Eyes: Extraocular muscles are intact. Pupils are equal, round and reactive to light and accommodation. Ears: No lesions. Nose appeared normal. Throat: No exudate or erythema. NECK: Supple. No JVD, no carotid bruit. No lymphadenopathy or thyromegaly. LUNGS: Decreased breath sounds but clear to auscultation. Percussion note normal. Chest symmetrical. HEART: S1, S2, no S3. No murmurs. No cyanosis or clubbing. No ascites. Pulses: Dorsalis pedis and posterior tibial pulses +1 to +2 both sides. ABDOMEN: Soft. Nontender. Bowel sounds active. No CVA tenderness. No mass felt. EXTREMITIES: No edema. Full range of motion of all extremities, equal. NEUROLOGIC: No focal deficit. Cranial nerves II through XII are grossly intact. No headache, no double vision or headache. SKIN: Not dry. Intact. Turgor - normal. LYMPHATIC: No palpable lymph nodes/no lymphedema. MUSCULOSKELETAL: Normal joints with no swelling. Muscle tone is normal. PLAN: 1. Continue steroids, antibiotics and NEBS 2. Advised to quit smoking and counseling for smoking done CONDITION: Stable The patient was seen and examined with Nurse Practitioner. TIME SPENT: More than 30 minutes. Plan and coordination of the patient's care discussed in the presence of nurse. SUSANNE
--- NOTE | 2017-04-05 12:41 | HP ---
DATE OF SERVICE: 04/01/17 REASON FOR HOSPITALIZATION/HISTORY OF PRESENT ILLNESS: 71 year old white male with a long history of smoking, severe COPD oxygen dependant who presented to the emergency room by ambulance complaining of hurting all over and shortness of breath. PAST MEDICAL HISTORY: Recurrent pneumonia Hyperthyroidism Dyslipidemia Coronary artery disease Hypertension Severe COPD Oxygen dependent Anemia GERD Anxiety Depression Generalized osteoarthritis Chronic back pain PAST SURGICAL HISTORY: Cholecystectomy REVIEW OF SYSTEMS: CONSTITUTIONAL: No night sweats. Fatigue, malaise and generalized weakness. No fever or chills. HEENT: Eyes: No visual changes. No eye pain. No eye discharge. ENT: No runny nose. No epistaxis. No sinus pain. No sore throat. No odynophagia. No ear pain. No congestion. RESPIRATORY: Cough, no congestion. No hemoptysis. Shortness of breath.Wheezing. CARDIOVASCULAR: No angina symptoms. No CHF symptoms. No atypical chest pain for CAD. No palpitations. No orthopnea. GASTROINTESTINAL: No abdominal pain. No nausea or vomiting. No diarrhea or constipation. No hematemesis. No hematochezia. Decreased appetite. GENITOURINARY: No urgency. No frequency. No dysuria. No hematuria. No obstructive symptoms. No discharge. No pain. No significant abnormal bleeding. MUSCULOSKELETAL: No musculoskeletal pain. No joint swelling. No arthritis. Generalized achiness and weakness. NEUROLOGICAL: No headache. No neck pain. No syncope. No seizures. No dizziness. Somewhat confused and anxious. PSYCHIATRIC: Anxious. No depression. No suicidal thoughts. No homicidal thoughts. SKIN: No rash. No lesions. No wounds. ENDOCRINE: No unexplained weight loss. No weight gain. HEMATOLOGIC/LYMPHATIC: No anemia. No purpura. No petechiae. No prolonged or excessive bleeding. No palpable lymph nodes. PERSONAL/FAMILY/SOCIAL HISTORY: The patient is a heavy smoker and has for the past 40 years. He currently lives with his sister who has lung cancer and also heavy smoker. He denies any alcohol or elicit drug use. MEDICATIONS: Neurontin 300mg twice a day Zocor 20mg daily Flomax 0.4mg daily DUO NEBS Q 6 hour Synthroid 75mcg daily Symbicort two puffs twice a day Hydrochlorothiazide 25mg daily Carafate 1gram four times a day Lamictal 25mg twice a day Ativan 0.5mg three times a day Prilosec 20mg daily Daliresp 500mcg daily Primidone 50mg three times a day Aspirin 81mg daily Cardizem 60mg twice a day Zyprexa 2.5mg twice a day Ferrous sulfate 325mg twice a day Miralax PRN [place] 5-325mg Twice a day PRN ALLERGIES: Codeine Reglan PHYSICAL EXAMINATION: GENERAL: The patient is very ill appearing in very mild distress. VITAL SIGNS: Temperature 97.7, heart rate 85, respirations 15, blood pressure 136/82, oxygen 92% on 3 liters. HEENT: Head normocephalic, atraumatic. Eyes: Extraocular muscles are intact. Pupils are equal, round and reactive to light and accommodation. Ears: No lesions. Nose appeared normal. Throat: No exudate or erythema. NECK: Supple. No JVD, no carotid bruit. No lymphadenopathy or thyromegaly. LUNGS: Severely diminished breath sounds bilaterally with bilateral inspiratory and expiratory rub which is normal for him with very little air movement. Percussion note normal. Chest symmetrical. HEART: S1, S2, no S3. No murmurs. No cyanosis or clubbing. No ascites. Pulses: Dorsalis pedis and posterior tibial pulses +1 to +2 both sides. ABDOMEN: Soft. Nontender. Bowel sounds active times four quadrants. No CVA tenderness. No mass felt. No Hepatosplenomegaly. EXTREMITIES: No edema. Full range of motion of all extremities, equal. Negative Homans sign bilateral. NEUROLOGIC: No focal deficit. Cranial nerves II through XII are grossly intact. No headache, no double vision or headache. Mild confusion likely due to respiratory status. SKIN: Warm, dry and pale. Intact. Turgor - normal. LYMPHATIC: No palpable lymph nodes/no lymphedema. MUSCULOSKELETAL: Normal joints with no swelling. Muscle tone is normal. Generalized weakness. LABS: WBC 9.06, hgb 16.2, hct 49.5, MCV 100, MCH 32.7, MCH 32.7, plt count 128, Sodium 140, potassium 3.8, chloride 83, carbon dioxide 47, BUN 15, creatinine 0.83, glucose 145, calcium 9.8, bilirubin 0.83, AST 13, ALT 13, Alkaline phosphatase 68, Troponin 0.02, Rapid flu A and B are both negative. Initial ABG on room air. O2 sat 76, pH 7.431, pCO2 76.6, pO2 43, bicarb 51, total CO2 greater than 50, base excess of 27 later repeated ABG's showed improvement. EKG normal sinus rhythm. Chest x-ray bibasilar atelectasis changes with emphysema and no pneumonia. ASSESSMENT: 1. Acute shortness of breath 2. Acute COPD exacerbation 3. Chronic respiratory failure 4. COPD, severe oxygen dependant PLAN: 1. Admit to the floor 2. Routine telemetry orders 3. CBC and CMP daily 4. Regular diet 5. Oxygen as needed 6. Rocephin 1gram IV daily 7. Solu-Medrol 125mg IV Q 6 hours 8. Xopenex NEB treatment Q 6 hours 9. Zithromax 500mg IV PO daily times 3 days 10.Continue all home medications 11.IV fluids at 75cc an hour D5 half normal saline Will follow closely. TIME SPENT: More than 70 minutes. MTDD
--- NOTE | 2017-04-05 12:48 | PCM.PROG ---
Attending Provider: ATTENDING PROVIDER: Dr. MARLENY WELLER This patient is seen with Amber Guadalupe, Nurse Practitioner. DATE OF SERVICE: 04/05/17 SUBJECTIVE: This 71 year old WHITE/ M was hospitalized 04/01/17. The patient is lying in bed, alert. Shortness of breath has improved. Potassium is low today. REVIEW OF SYSTEMS: CONSTITUTIONAL: Positive for weakness. No night sweats. No fever or chills. HEENT: Eyes: No visual changes. No eye pain. No eye discharge. ENT: No runny nose. No epistaxis. No sinus pain. No odynophagia. No congestion. RESPIRATORY: Positive for cough and congestion. Improved shortness of breath. No hemoptysis. CARDIOVASCULAR: No angina symptoms. No CHF symptoms. No atypical chest pain for CAD. No palpitations. No orthopnea.. GASTROINTESTINAL: No abdominal pain. No nausea or vomiting. No diarrhea or constipation. No hematemesis. No hematochezia. GENITOURINARY: No urgency. No frequency. No dysuria. No hematuria. No obstructive symptoms. No discharge. No pain. No significant abnormal bleeding. MUSCULOSKELETAL: No musculoskeletal pain; no joint swelling. NEUROLOGICAL: Awake, alert, oriented to time, place and person. No headache. No neck pain. No syncope. No seizures. No dizziness. PSYCHIATRIC: Not anxious. No depression. No suicidal thoughts. No homicidal thoughts. SKIN: No rash. No lesions. No wounds. ENDOCRINE: No unexplained weight loss. No weight gain. HEMATOLOGIC/LYMPHATIC: No anemia. No purpura. No petechiae. No prolonged or excessive bleeding. No palpable lymph nodes. PHYSICAL EXAMINATION: GENERAL: The patient is awake, alert and oriented, lying/sitting in bed in no distress. VITAL SIGNS: Temperature 99.0 F, Pulse 78, Respiratory Rate 20, BP 146/71, Pulse Ox 92% HEENT: Head normocephalic, atraumatic. Eyes: Extraocular muscles are intact. Pupils are equal, round and reactive to light and accommodation. Ears: No lesions. Nose appeared normal. Throat: No exudate or erythema. NECK: Supple. No JVD, no carotid bruit. No lymphadenopathy or thyromegaly. LUNGS: Diminished breath sounds bilaterally, significantly improved. Clear to auscultation. Percussion note normal. Chest symmetrical. HEART: S1, S2, no S3. No murmurs. No cyanosis or clubbing. No ascites. Pulses: Dorsalis pedis and posterior tibial pulses +1 to +2 both sides. ABDOMEN: Soft. Non-tender. Bowel sounds active. No CVA tenderness. No mass felt. EXTREMITIES: No edema. Full range of motion of all extremities, equal. NEUROLOGIC: No focal deficit. Cranial nerves II through XII are grossly intact. No headache, no double vision or headache. SKIN: Not dry. Intact. Turgor-normal. LYMPHATIC: No palpable lymph nodes/no lymphedema. MUSCULOSKELETAL: Normal joints with no swelling. Muscle tone is normal. LAB REVIEW: 04/05/17 05:00 04/05/17 05:00 04/05/17 05:01: Puncture Site R rad, O2 Saturation 94.0 L, ABG pH 7.44, ABG pCO2 48.8 H, ABG pO2 69.0 L, ABG HCO3 33 H, ABG Total CO2 35 H, ABG Base Excess 10 H, Julio Cesar Test +, FiO2 % 32.0 04/05/17 05:00: Sodium 145, Potassium 2.6 L*, Chloride 102, Carbon Dioxide 32 H , Anion Gap 13.6, BUN 16, Creatinine 0.69, Estimated GFR (MDRD) 113.00, BUN/ Creatinine Ratio 23.18, Glucose 220 H, Calcium 8.4, Total Bilirubin 0.29, AST 13 L, ALT 14, Alkaline Phosphatase 47 L, Total Protein 5.1 L, Albumin 2.7 L, Globulin 2.4, Albumin/Globulin Ratio 1.13 04/05/17 05:00: WBC 7.93, RBC 3.81 L, Hgb 12.3 L, Hct 36.5 L, MCV 95.8 H, MCH 32.3 H, MCHC 33.7, RDW Coeff of Evan 13.4, Plt Count 110 L, Immature Gran % (Auto ) 0.6, Neut % (Auto) 91.8, Lymph % (Auto) 5.7 L, [place] % (Auto) 1.8, Eos % (Auto ) 0.0, Baso % (Auto) 0.1, Immature Gran # (Auto) 0.1, Neut # 7.3 H, Lymph # 0.5 L, [place] # 0.1 L, Eos # 0.0, Baso # 0.0 ASSESSMENT: 1. Shortness of breath 2. Acute exacerbation of COPD , oxygen dependent 3. Hypokalemia 4. Elevated c02 5. Chronic respiratory failure PLAN: 1. Potassium 20 mEq five times a day 2. Up and about as tolerated. 3. D/C IV fluids 4. Decrease IV steroids to q.12hr Plan and coordination of the patient's care discussed in the presence of Data Examination Clerk and nurse. CONDITION: Stable SCRIBED BY: Javid QUINTANAist scribed while in presence of service performed by Dr. Weller/Amber Guadalupe APRN on 04/05/17 ([id number])
[2017-04-05] MEDS: K-DUR PO SCH ×3 (13:04→20:55)
[2017-04-05] MEDS: ZOCOR PO SCH (16:14)
[2017-04-05] MEDS: FLOMAX PO SCH (16:15)
[2017-04-06] MEDS: XOPENEX 1.25 MG NEB SCH ×4 (05:14→23:14)
[2017-04-06] MEDS: PULMICORT 0.5 MG/2 ML NEB SCH ×2 (05:14→16:33)
[2017-04-06] MEDS: SYNTHROID PO SCH (05:46)
[2017-04-06] MEDS: K-DUR PO SCH ×4 (05:46→17:16)
[2017-04-06] MEDS: PRILOSEC PO SCH (05:46)
[2017-04-06] MEDS: CARAFATE PO SCH ×4 (05:46→20:27)
[2017-04-06] MEDS: ATIVAN PO SCH ×3 (08:33→20:27)
[2017-04-06] MEDS: NEURONTIN PO SCH ×2 (08:34→20:27)
[2017-04-06] MEDS: ZYPREXA PO SCH ×2 (08:34→20:27)
[2017-04-06] MEDS: LAMICTAL PO SCH ×2 (08:34→20:27)
[2017-04-06] MEDS: FERROUS SULFATE PO SCH ×2 (08:34→20:28)
[2017-04-06] MEDS: HYDROCHLOROTHIAZIDE PO SCH (08:35)
[2017-04-06] MEDS: CARDIZEM PO SCH ×2 (08:35→20:28)
[2017-04-06] MEDS: ASPIRIN EC PO SCH (08:36)
[2017-04-06] MEDS: DALIRESP PO SCH (08:36)
[2017-04-06] MEDS: LOVENOX SUBCUT SCH (08:36)
[2017-04-06] MEDS: VITAMIN D PO SCH (08:36)
[2017-04-06] MEDS: PREDNISONE PO SCH ×2 (08:41→17:48)
[2017-04-06] MEDS: KEFLEX PO SCH ×3 (08:41→20:27)
[2017-04-06] MEDS: PRIMIDONE 50 MG PO SCH ×3 (08:42→20:28)
--- NOTE | 2017-04-06 09:01 | PCM.PROG ---
Attending Provider: ATTENDING PROVIDER: Dr. MARLENY WELLER This patient is seen with Amber Guadalupe, Nurse Practitioner. DATE OF SERVICE: 04/06/17 SUBJECTIVE: This 71 year old WHITE/ M was hospitalized 04/01/17. The patient is lying in bed, alert in no distress. He would like to go home and has been sitting up in the chair. He has been eating well. Shortness of breath has improved. REVIEW OF SYSTEMS: CONSTITUTIONAL: No night sweats. No fatigue, malaise, lethargy. No fever or chills. HEENT: Eyes: No visual changes. No eye pain. No eye discharge. ENT: No runny nose. No epistaxis. No sinus pain. No odynophagia. No congestion. RESPIRATORY: Positive for shortness of breath, cough and congestion. No hemoptysis. CARDIOVASCULAR: No angina symptoms. No CHF symptoms. No atypical chest pain for CAD. No palpitations. No orthopnea.. GASTROINTESTINAL: No abdominal pain. No nausea or vomiting. No diarrhea or constipation. No hematemesis. No hematochezia. GENITOURINARY: No urgency. No frequency. No dysuria. No hematuria. No obstructive symptoms. No discharge. No pain. No significant abnormal bleeding. MUSCULOSKELETAL: No musculoskeletal pain; no joint swelling. NEUROLOGICAL: Awake, alert, oriented to time, place and person. No headache. No neck pain. No syncope. No seizures. No dizziness. PSYCHIATRIC: Not anxious. No depression. No suicidal thoughts. No homicidal thoughts. SKIN: No rash. No lesions. No wounds. ENDOCRINE: No unexplained weight loss. No weight gain. HEMATOLOGIC/LYMPHATIC: No anemia. No purpura. No petechiae. No prolonged or excessive bleeding. No palpable lymph nodes. PHYSICAL EXAMINATION: GENERAL: The patient is awake, alert and oriented, lying in bed in no distress. VITAL SIGNS: Temperature 97.4 F, Pulse 63, Respiratory Rate 20, BP 109/61, Pulse Ox 93% HEENT: Head normocephalic, atraumatic. Eyes: Extraocular muscles are intact. Pupils are equal, round and reactive to light and accommodation. Ears: No lesions. Nose appeared normal. Throat: No exudate or erythema. NECK: Supple. No JVD, no carotid bruit. No lymphadenopathy or thyromegaly. LUNGS: Severely diminished breath sounds bilaterally with expiratory rub. Percussion note normal. Chest symmetrical. HEART: S1, S2, no S3. No murmurs. No cyanosis or clubbing. No ascites. Pulses: Dorsalis pedis and posterior tibial pulses +1 to +2 both sides. ABDOMEN: Soft. Non-tender. Bowel sounds active. No CVA tenderness. No mass felt. EXTREMITIES: No edema. Full range of motion of all extremities, equal. NEUROLOGIC: No focal deficit. Cranial nerves II through XII are grossly intact. No headache, no double vision or headache. SKIN: Not dry. Intact. Turgor-normal. LYMPHATIC: No palpable lymph nodes/no lymphedema. MUSCULOSKELETAL: Normal joints with no swelling. Muscle tone is normal. LAB REVIEW: 04/06/17 04:30 04/06/17 04:30 04/06/17 04:30: Sodium 145, Potassium 3.0 L, Chloride 101, Carbon Dioxide 36 H, Anion Gap 11.0, BUN 17, Creatinine 0.72, Estimated GFR (MDRD) 107.00, BUN/ Creatinine Ratio 23.61, Glucose 234 H, Calcium 8.3, Total Bilirubin 0.3, AST 13 L, ALT 17, Alkaline Phosphatase 47 L, Total Protein 4.7 L, Albumin 2.4 L, Globulin 2.3, Albumin/Globulin Ratio 1.04 04/06/17 04:30: WBC 8.08, RBC 3.76 L, Hgb 12.2 L, Hct 36.5 L, MCV 97.1 H, MCH 32.4 H, MCHC 33.4, RDW Coeff of Evan 13.7, Plt Count 101 L, Immature Gran % (Auto ) 0.6, Neut % (Auto) 91.7, Lymph % (Auto) 6.2 L, [place] % (Auto) 1.4, Eos % (Auto ) 0.0, Baso % (Auto) 0.1, Immature Gran # (Auto) 0.1, Neut # 7.4 H, Lymph # 0.5 L, [place] # 0.1 L, Eos # 0.0, Baso # 0.0 ASSESSMENT: 1. Shortness of breath 2. Acute exacerbation of COPD , oxygen dependent 3. Hypokalemia 4. Elevated c02 5. Chronic respiratory failure PLAN: 1. Prednisone 20 mg b.i.d. 2. Discontinue Solu-Medrol 3. Discontinue Rocephin 4. Keflex 500 mg t.i.d. 5. Potassium 40 mEq t.i.d. Plan and coordination of the patient's care discussed in the presence of Senior Treasury Analyst and nurse. CONDITION: Stable SCRIBED BY: Waqar QUINTANA scribed while in presence of service performed by Dr. Weller/Amber Guadalupe APRN on 04/06/17 ([id number])
[2017-04-06] MEDS: NORCO 5-325 PO PRN (14:39)
--- NOTE | 2017-04-06 14:54 | PN ---
DATE OF SERVICE: 04/06/17 SUBJECTIVE: The patient hospitalized with acute respiratory failure with high CO2 level and hypoxemia. The patient's condition has slowly improved. His respiratory status is as best as he could get. Respiratory failure, he is not in distress. His new problem was hypokalemia. Today the potassium is 3 and we will continue to give Potassium supplement and if he is stable he will be discharged home tomorrow. The patient was seen and examined with Nurse Practitioner and Chief Nurse Anesthetist. TIME SPENT: More than 30 minutes. Plan and coordination of the patient's care discussed in the presence of nurse. SUSANNE
[2017-04-06] MEDS: ZOCOR PO SCH (17:16)
[2017-04-06] MEDS: FLOMAX PO SCH (17:16)
[2017-04-07] MEDS: XOPENEX 1.25 MG NEB SCH ×2 (05:39→11:15)
[2017-04-07] MEDS: PULMICORT 0.5 MG/2 ML NEB SCH (05:40)
[2017-04-07] MEDS: PRILOSEC PO SCH (05:52)
[2017-04-07] MEDS: CARAFATE PO SCH ×2 (05:52→11:35)
[2017-04-07] MEDS: SYNTHROID PO SCH (05:52)
[2017-04-07] MEDS: KEFLEX PO SCH (05:53)
[2017-04-07] MEDS: ASPIRIN EC PO SCH (09:03)
[2017-04-07] MEDS: CARDIZEM PO SCH (09:04)
[2017-04-07] MEDS: FERROUS SULFATE PO SCH (09:05)
[2017-04-07] MEDS: K-DUR PO SCH (09:05)
[2017-04-07] MEDS: VITAMIN D PO SCH (09:05)
[2017-04-07] MEDS: NEURONTIN PO SCH (09:06)
[2017-04-07] MEDS: ZYPREXA PO SCH (09:06)
[2017-04-07] MEDS: LOVENOX SUBCUT SCH (09:06)
[2017-04-07] MEDS: DALIRESP PO SCH (09:06)
[2017-04-07] MEDS: PREDNISONE PO SCH (09:06)
[2017-04-07] MEDS: HYDROCHLOROTHIAZIDE PO SCH (09:06)
[2017-04-07] MEDS: LAMICTAL PO SCH (09:07)
[2017-04-07] MEDS: ATIVAN PO SCH (09:16)
[2017-04-07] MEDS: PRIMIDONE 50 MG PO SCH (09:16)
[2017-04-07 10:43] VITALS: BP 123/69; TEMP 97.5
--- NOTE | 2017-04-07 11:28 | CM.DICTOOL ---
ADMISSION: 04/01/17 12:07 DISCHARGE: April 07, 2017 DATE OF SERVICE: 04/07/17 FINAL DIAGNOSIS Acute Respiratory Failure COPD, oxygen dependent Chronic Respiratory Failure Hypokalemia, resolved Hypertension GERD Anxiety CAD Arthritis Dyslipidemia Hypothyroid Cholecystectomy Hernia Repair LAST VITALS Temp Pulse Resp BP Pulse Ox 97.7 F 65 20 107/65 93 L 04/07/17 06:00 04/07/17 06:00 04/07/17 06:00 04/07/17 06:00 04/07/17 06:00 ACTIVE HOME MEDICATIONS Acetaminophen/Hydrocodone Bitart ([place] 5-325) 1 tab PO BID PRN PRN Reason: MODERATE PAIN Last Admin: 04/06/17 14:39 Dose: 1 tab Aspirin (Aspirin Ec) 81 mg PO DAILYWM [facility] Last Admin: 04/07/17 09:03 Dose: 81 mg Cholecalciferol (Vitamin D) 1,000 unit PO DAILY [facility] Last Admin: 04/07/17 09:05 Dose: 1,000 unit Diltiazem HCl (Cardizem) 60 mg PO Q12HR [facility] Last Admin: 04/07/17 09:04 Dose: 60 mg Ferrous Sulfate (Ferrous Sulfate) 324 mg PO BID [facility] Last Admin: 04/07/17 09:05 Dose: 324 mg Gabapentin (Neurontin) 300 mg PO BID [facility] Last Admin: 04/07/17 09:06 Dose: 300 mg Hydrochlorothiazide (Hydrochlorothiazide) 25 mg PO DAILY [facility] Last Admin: 04/07/17 09:06 Dose: 25 mg Lamotrigine (Lamictal) 25 mg PO BID [facility] Last Admin: 04/07/17 09:07 Dose: 25 mg Ipratropium/Albuterol (Duoneb) 1 vial BID Last Admin: Levothyroxine Sodium (Synthroid) 75 mcg PO QDAC [facility] Last Admin: 04/07/17 05:52 Dose: 75 mcg Lorazepam (Ativan) 0.5 mg PO TID [facility] Last Admin: 04/07/17 09:16 Dose: 0.5 mg Non-Formulary Medication (Primidone [Primidone]) 50 mg PO TID [facility] Last Admin: 04/07/17 09:16 Dose: Not Given Olanzapine (Zyprexa) 2.5 mg PO BID [facility] Last Admin: 04/07/17 09:06 Dose: 2.5 mg Omeprazole (Prilosec) 20 mg PO QDAC [facility] Last Admin: 04/07/17 05:52 Dose: 20 mg Polyethylene Glycol (Miralax) 17 gm PO DAILY PRN PRN Reason: Constipation Roflumilast (Daliresp) 500 mcg PO DAILY [facility] Last Admin: 04/07/17 09:06 Dose: 500 mcg Simvastatin (Zocor) 20 mg PO 1700 [facility] Last Admin: 04/06/17 17:16 Dose: 20 mg Sucralfate (Carafate) 1 gm PO ACHS [facility] Last Admin: 04/07/17 05:52 Dose: 1 gm Tamsulosin HCl (Flomax) 0.4 mg PO 1700 [facility] Last Admin: 04/06/17 17:16 Dose: 0.4 mg ALLERGIES codeine Adverse Reaction (Verified 04/01/17 09:17) metoclopramide HCl [From Reglan] Adverse Reaction (Verified 04/01/17 09:17) NEW PRESCRIPTIONS: Keflex 500 mg BID for 5 days Prednisone 30 mg for 5 days, then 20 mg for 5 days, then 10 mg for 15 days. Take with food. K-dur 20 meq daily SMOKING: Advised no smoking (patient states has stopped) DISEASE SPECIFIC EDUCATION: Medications Use of steroids and risk of GI upset, bone demineralization Oxygen LAB REVIEW: 04/07/17 04:40 04/07/17 04:40 04/07/17 08:51: Puncture Site Lr, O2 Saturation 94.0 L, ABG pH 7.460 H, ABG pCO2 49.3 H, ABG pO2 67.0 L, ABG HCO3 35.1 H, ABG Total CO2 37 H, ABG Base Excess 11 H, Julio Cesar Test +, O2 Delivery Device Nc, Oxygen Liter Flow 3.00, FiO2 % 32.0 04/07/17 04:40: Sodium 141, Potassium 4.2, Chloride 99, Carbon Dioxide 35 H, Anion Gap 11.2, BUN 14, Creatinine 0.69, Estimated GFR (MDRD) 113.00, BUN/ Creatinine Ratio 20.28, Glucose 179 H, Calcium 8.7, Total Bilirubin 0.3, AST 12 L, ALT 17, Alkaline Phosphatase 49 L, Total Protein 5.0 L, Albumin 2.5 L, Globulin 2.5, Albumin/Globulin Ratio 1.00 04/07/17 04:40: WBC 5.70, RBC 3.88 L, Hgb 12.5 L, Hct 38.7 L, MCV 99.7 H, MCH 32.2 H, MCHC 32.3, RDW Coeff of Evan 13.7, Plt Count 103 L, Immature Gran % (Auto ) 0.4, Neut % (Auto) 80.8, Lymph % (Auto) 14.4, [place] % (Auto) 4.2, Eos % (Auto) 0.2, Baso % (Auto) 0.0, Immature Gran # (Auto) 0.0, Neut # 4.6, Lymph # 0.8, [place] # 0.2 L, Eos # 0.0, Baso # 0.0 PLAN: Discharge home Diet: Regular as tolerated, soft foods Activity: Resume as tolerated. Use oxygen at all times Continue medications as listed on nursing discharge information sheet Continue use of home oxygen at 3 liters at all times Continue to use nebulizer treatments at least 2-3 times daily An appointment is scheduled for April 15 at [address] Ceja/Amber Guadalupe APRN Mr. Romero is alert and oriented x 2. He is disoriented to time. He is forgetful at times, but cooperative with care. He is independent with feeding, but requires assistance with opening containers. He turns and repositions himself in the bed, but requires assistance of 1 staff member for transfers from the bed to the chair. He is continent of urine at times, but he is also incontinent. He is continent of bowel. Last BM noted this morning. His appetite is good with 50-75% meal intakes noted. Bruising is noted to the upper extremities, but the skin is free of decubitus ulcers. Antoni Ceja MD
--- NOTE | 2017-04-07 13:09 | PN ---
DATE OF SERVICE: 04/03/17 SUBJECTIVE: 71-year-old white male hospitalized with acute respiratory failure with c02 retention. The patient's condition is improved. He is in chronic respiratory failure getting worse at times with acute bronchitis. He is noncompliant. The patient is DNR. This morning the patient is oriented to time, place and person. His voice is stronger. PHYSICAL EXAMINATION: GENERAL: The patient is oriented to time, place and person. VITAL SIGNS: Temperature 97, pulse 69, respiratory rate 24, BP 111/68. Pulse ox 92%. HEENT: Head normocephalic, atraumatic. Eyes: Extraocular muscles are intact. Pupils are equal, round and reactive to light and accommodation. Ears: No lesions. Nose appeared normal. Throat: No exudate or erythema. NECK: Supple. No JVD, no carotid bruit. No lymphadenopathy or thyromegaly. LUNGS: Decreased breath sounds. Clear to auscultation. Percussion note normal. Chest symmetrical. HEART: S1, S2, no S3. No murmurs. No cyanosis or clubbing. No ascites. Pulses: Dorsalis pedis and posterior tibial pulses +1 to +2 both sides. ABDOMEN: Soft. Nontender. Bowel sounds active. No CVA tenderness. No mass felt. EXTREMITIES: No edema. Full range of motion of all extremities, equal. NEUROLOGIC: No focal deficit. Cranial nerves II through XII are grossly intact. No headache, no double vision or headache. SKIN: Not dry. Intact. Turgor - normal. LYMPHATIC: No palpable lymph nodes/no lymphedema. MUSCULOSKELETAL: Normal joints with no swelling. Muscle tone is normal. LABS: Hemoglobin 13.5, hematocrit 39, WBC 10,000, normal differential. Creatinine 0.7 , BUN 18, potassium 3.3. ASSESSMENT: 1. Acute respiratory failure seems to have resolved. 2. Chronic respiratory failure. 3. Chronic lung disease. 4. Coronary artery disease. 5. Hypertension. PLAN: 1. Continue IV steroids, antibiotics, nebs treatment. 2. Pulmonary rehabilitation advised, discussed and declined. TIME SPENT: More than 30 minutes. Plan and coordination of the patient's care discussed in the presence of nurse. SUSANNE
--- NOTE | 2017-04-07 13:14 | PN ---
DATE OF SERVICE: 04/04/17 SUBJECTIVE: 71-year-old white male hospitalized with acute respiratory failure. The patient had chronic respiratory failure with hypercarbia. The patient's initial pc02 was high but after giving breathing treatments, steroids and putting him on all his medications, the patient's condition has improved. The patient's problem is living by himself, practically incapable of doing any activity of daily living and has to depend on his sister, who recently had CA of the lung status post pneumonectomy. The patient doesn't want to go to the prison. REVIEW OF SYSTEMS: CONSTITUTIONAL: No night sweats. No fatigue, malaise, lethargy. No fever or chills. HEENT: Eyes: No visual changes. No eye pain. No eye discharge. ENT: No runny nose. No epistaxis. No sinus pain. No sore throat. No odynophagia. No congestion. RESPIRATORY: No cough, no congestion. No hemoptysis. No shortness of breath. CARDIOVASCULAR: No angina symptoms. No CHF symptoms. No atypical chest pain for CAD. No palpitations. No orthopnea. GASTROINTESTINAL: No abdominal pain. No nausea or vomiting. No diarrhea or constipation. No hematemesis. No hematochezia. GENITOURINARY: No urgency. No frequency. No dysuria. No hematuria. No obstructive symptoms. No discharge. No pain. No significant abnormal bleeding. MUSCULOSKELETAL: No musculoskeletal pain; no joint swelling. NEUROLOGICAL: No headache. No neck pain. No syncope. No seizures. No dizziness. PSYCHIATRIC: Not anxious. No depression. No suicidal thoughts. No homicidal thoughts. SKIN: No rash. No lesions. No wounds. ENDOCRINE: No unexplained weight loss. No weight gain. HEMATOLOGIC/LYMPHATIC: No anemia. No purpura. No petechiae. No prolonged or excessive bleeding. No palpable lymph nodes. PHYSICAL EXAMINATION: GENERAL: The patient is oriented to time, place and person. VITAL SIGNS: Temperature 97.8, pulse 70, respiratory rate 20, BP 124/70, pulse ox 97%. HEENT: Head normocephalic, atraumatic. Eyes: Extraocular muscles are intact. Pupils are equal, round and reactive to light and accommodation. Ears: No lesions. Nose appeared normal. Throat: No exudate or erythema. NECK: Supple. No JVD, no carotid bruit. No lymphadenopathy or thyromegaly. LUNGS: Decreased breath sounds but clear to auscultation. Percussion note normal. Chest symmetrical. HEART: S1, S2, no S3. No murmurs. No cyanosis or clubbing. No ascites. Pulses: Dorsalis pedis and posterior tibial pulses +1 to +2 both sides. ABDOMEN: Soft. Nontender. Bowel sounds active. No CVA tenderness. No mass felt. EXTREMITIES: No edema. Full range of motion of all extremities, equal. NEUROLOGIC: No focal deficit. Cranial nerves II through XII are grossly intact. No headache, no double vision or headache. SKIN: Not dry. Intact. Turgor - normal. LYMPHATIC: No palpable lymph nodes/no lymphedema. MUSCULOSKELETAL: Normal joints with no swelling. Muscle tone is normal. ASSESSMENT: 1. ACUTE RESPIRATORY FAILURE, RESOLVED 2. CHRONIC RESPIRATORY FAILURE PERSISTS 3. SMOKING 4. CORONARY ARTERY DISEASE PLAN: 1. Educate him about his medical problems. 2. The patient is advised pulmonary rehab which he has declined. 3. Counseling for smoking done. 4. Continue nebs, steroids and antibiotics. TIME SPENT: More than 30 minutes. Plan and coordination of the patient's care discussed in the presence of nurse. SUSANNE
--- NOTE | 2017-04-07 13:18 | PN ---
DATE OF SERVICE: 04/05/17 SUBJECTIVE: 41-year-old white male hospitalized with acute respiratory failure. The patient has chronic respiratory failure with c02 retention. The patient is noncompliant , lives with sister who has now end-stage chronic lung disease with CA of the lung. The patient had potassium of 2.6 this morning reported so he is on K-Tab 20 mEq two tablets four times a day. The patient's CBC, CMP will be watched. Telemetry does not show any arrhythmias. Condition stable. The patient was seen and examined with nurse practitioner. TIME SPENT: More than 30 minutes. Plan and coordination of the patient's care discussed in the presence of nurse. SUSANNE
--- NOTE | 2017-04-07 13:43 | PCM.PROG ---
Attending Provider: ATTENDING PROVIDER: Dr. MARLENY WELLER DATE OF SERVICE: 04/07/17 SUBJECTIVE: This 71 year old WHITE/ M was hospitalized 04/01/17. The patient was hospitalized with respiratory failure. The patient is in chronic respiratory failure. He had acute bronchitis. He is a lot better with less hypercarbia. No symptoms of CHF. He is feeling a lot better at rest. REVIEW OF SYSTEMS: CONSTITUTIONAL: No night sweats. No fatigue, malaise, lethargy. No fever or chills. HEENT: Eyes: No visual changes. No eye pain. No eye discharge. ENT: No runny nose. No epistaxis. No sinus pain. No odynophagia. No congestion. RESPIRATORY: No cough, no congestion. No hemoptysis. No shortness of breath. CARDIOVASCULAR: No angina symptoms. No CHF symptoms. No atypical chest pain for CAD. No palpitations. No orthopnea.. GASTROINTESTINAL: No abdominal pain. No nausea or vomiting. No diarrhea or constipation. No hematemesis. No hematochezia. GENITOURINARY: No urgency. No frequency. No dysuria. No hematuria. No obstructive symptoms. No discharge. No pain. No significant abnormal bleeding. MUSCULOSKELETAL: No musculoskeletal pain; no joint swelling. NEUROLOGICAL: Awake, alert, oriented to time, place and person. No headache. No neck pain. No syncope. No seizures. No dizziness. PSYCHIATRIC: Not anxious. No depression. No suicidal thoughts. No homicidal thoughts. SKIN: No rash. No lesions. No wounds. ENDOCRINE: No unexplained weight loss. No weight gain. HEMATOLOGIC/LYMPHATIC: No anemia. No purpura. No petechiae. No prolonged or excessive bleeding. No palpable lymph nodes. PHYSICAL EXAMINATION: GENERAL: The patient is awake, alert and oriented, lying in bed in no distress. VITAL SIGNS: Temperature 97.7 F, Pulse 65, Respiratory Rate 20, BP 107/65, Pulse Ox 93% HEENT: Head normocephalic, atraumatic. Eyes: Extraocular muscles are intact. Pupils are equal, round and reactive to light and accommodation. Ears: No lesions. Nose appeared normal. Throat: No exudate or erythema. NECK: Supple. No JVD, no carotid bruit. No lymphadenopathy or thyromegaly. LUNGS: Decreased breath sounds. Clear to auscultation. Percussion note normal. Chest symmetrical. HEART: S1, S2, no S3. Grade I/ systolic murmur. No cyanosis or clubbing. No ascites. Pulses: Dorsalis pedis and posterior tibial pulses +1 to +2 both sides. ABDOMEN: Soft. Non-tender. Bowel sounds active. No CVA tenderness. No mass felt. EXTREMITIES: No edema. Full range of motion of all extremities, equal. NEUROLOGIC: No focal deficit. Cranial nerves II through XII are grossly intact. No headache, no double vision or headache. SKIN: Not dry. Intact. Turgor-normal. LYMPHATIC: No palpable lymph nodes/no lymphedema. MUSCULOSKELETAL: Normal joints with no swelling. Muscle tone is normal. LAB REVIEW: 04/07/17 04:40 04/07/17 04:40 04/07/17 04:40: Sodium 141, Potassium 4.2, Chloride 99, Carbon Dioxide 35 H, Anion Gap 11.2, BUN 14, Creatinine 0.69, Estimated GFR (MDRD) 113.00, BUN/ Creatinine Ratio 20.28, Glucose 179 H, Calcium 8.7, Total Bilirubin 0.3, AST 12 L, ALT 17, Alkaline Phosphatase 49 L, Total Protein 5.0 L, Albumin 2.5 L, Globulin 2.5, Albumin/Globulin Ratio 1.00 04/07/17 04:40: WBC 5.70, RBC 3.88 L, Hgb 12.5 L, Hct 38.7 L, MCV 99.7 H, MCH 32.2 H, MCHC 32.3, RDW Coeff of Evan 13.7, Plt Count 103 L, Immature Gran % (Auto ) 0.4, Neut % (Auto) 80.8, Lymph % (Auto) 14.4, [place] % (Auto) 4.2, Eos % (Auto) 0.2, Baso % (Auto) 0.0, Immature Gran # (Auto) 0.0, Neut # 4.6, Lymph # 0.8, [place] # 0.2 L, Eos # 0.0, Baso # 0.0 ASSESSMENT: 1. Chronc respiratory failure/acute respiratory failure resolved 2. c02 retention resolved 3. Advised to quit smoking, counseling for smoking done. 4. No evidence of CHF, cardiovascular status stable PLAN: 1. Up and about 2. Keflex 500 mg b.i.d. for 5 days 3. Prednisone 30 mg daily for five days, 20 mg daily for 5 days, 10 mg daily for 15 days 4. Discharge home 5. Will do echo before discharge 6. ABGs on oxygen Plan and coordination of the patient's care discussed in the presence of Supervisor Pleating and nurse. EDUCATION: Counseling for smoking done. Discussed the side effects of Prednisone to include avascular necrosis, cataracts. The patient understands and is agreeable. CONDITION: Stable. PROGNOSIS: Is not good as he is taken care of by his sister who has end-stage ca of lung. SCRIBED BY: SANDY CASANOVA, Desk Interviewer scribed while in presence of service performed by Dr. MARLENY WELLER on 04/07/17 ([id number])
--- NOTE | 2017-04-13 13:50 | PN ---
DATE OF SERVICE: 04/07/17 SUBJECTIVE: 71 year old white male hospitalized with acute respiratory failure. The patient' s CO2 level was more than 70 and he was in respiratory acidosis. The patient was treated aggressively with NEBS, IV steroids, antibiotics. The patient's condition improved. On discharge the patient's blood gasses on ABG showed normal pH with pCO2 in 50's and oxygen saturation was 95% with oxygen 3 liters. During the stay in the hospital the patient was given IV antibiotics, IV steroids and NEBS treatment. His problem is he is being taken care by his sister who has now endstage C of the lung and he depends on her. The patient is a smoker. Counseling for smoking done. The patient developed severe hypokalemia. On discharge the patient is going to be on K-tab 20 meq twice a day and Keflex was also given for 5 days. CONDITION: Stable. The patient is DNR PROGNOSIS: Poor TIME SPENT: More than 30 minutes. Plan and coordination of the patient's care discussed in the presence of nurse. SUSANNE
--- NOTE | 2017-04-13 13:58 | PN ---
1214/17: Level 5 15/: Intermediate 16/17: Intermediate 04/04/17: Intermediate 04/05/17: Intermediate 04/06/17: Intermediate 04/07/17: D as in discharge MTDD
== END 2017-04-07 13:20 | disposition home or self-care (01) | DRG 189 ==
LOC: ED 09:12 → MEDSURG A 12:07
PROVIDERS: ADMIT Internal Medicine; ATTEND Internal Medicine
DX: J96.00 Acute respiratory failure, unspecified whether with hypoxia or hypercapnia (principal); J44.9 Chronic obstructive pulmonary disease, unspecified; J96.10 Chronic respiratory failure, unspecified whether with hypoxia or hypercapnia; E87.6 Hypokalemia; R53.1 Weakness; R52 Pain, unspecified; E03.9 Hypothyroidism, unspecified; E78.5 Hyperlipidemia, unspecified; I25.10 Atherosclerotic heart disease of native coronary artery without angina pectoris; I10 Essential (primary) hypertension; D64.9 Anemia, unspecified; K21.9 Gastro-esophageal reflux disease without esophagitis; F41.8 Other specified anxiety disorders; M19.90 Unspecified osteoarthritis, unspecified site; Z99.81 Dependence on supplemental oxygen; Z87.891 Personal history of nicotine dependence
CPT/HCPCS: 36415; 80053; 82803; 84484; 85025; 87081; 87804; 93005; 93010; 94640; 99223; 99232; 99239; 99285